=== PATIENT | male | born 1955 | race African-American/Black ===

== ENCOUNTER 2020-06-01 12:43 | Emergency (ER) | payer MEDICARE, SELFPAY ==
[2020-06-01] VITALS (29 sets, daily range): BP systolic 117–172; BP diastolic 76–117; PULSE 85–110; RESP 13–27; TEMP 36.4; O2SAT 89–100
--- NOTE | ~2020-06-01 | CT_ITS ---
EXAMINATION: CTA abd aorta runoff DATE: 06/01/2020 14:42 INDICATION: Peripheral arterial disease. TECHNIQUE: Computed tomographic angiography (CTA) of the abdominal, pelvis, and both lower extremitie s was performed with 150 mL Omnipaque-350 intravenous contrast. Automated exposure control and iterat yesenia reconstruction technique were employed. The dose-length product was 1695.35 mGy-cm. Maximum inten sity projection 3D-reconstructions of the arteries were created by the technologist on a separate wor kstation. COMPARISON: CT abdomen and pelvis 09/06/14 FINDINGS: ABDOMINAL AORTA AND ITS BRANCHES: There is atherosclerosis of abdominal aorta without aneurysm or significant stenosis. There is no sig nificant stenosis of celiac axis, superior mesenteric artery, the renal arteries, or inferior mesente dino artery. PELVIC VASCULATURE: There is mild stenosis of the common iliac arteries. There is total occlusion of a branch of right in ternal iliac artery. There is total occlusion of left internal iliac artery. There is moderate stenos is of right external iliac artery and left external iliac artery. RIGHT LOWER EXTREMITY VASCULATURE: There is no significant stenosis of right common femoral artery or profunda femoris. There is a throm bosed stent in right superficial femoral artery and above-knee popliteal artery. There is reconstitut ion of flow in above-knee popliteal artery distal to the stent. There is severe stenosis of proximal right anterior tibial artery. There is moderate stenosis of the tibioperoneal trunk and proximal farshad elena artery. There is mild stenosis of proximal right posterior tibial artery. LEFT LOWER EXTREMITY VASCULATURE: There is no significant stenosis of left common femoral artery or profunda femoris. There is mild prachi nosis of superficial left superficial femoral artery. There is focal moderate stenosis of proximal le ft superficial femoral artery. There is moderate stenosis of the junction of superficial femoral yandy ry and popliteal artery. There is total occlusion of mid anterior tibial artery with distal reconstit ution. There is severe stenosis of tibioperoneal trunk. There is total occlusion of proximal posterio r tibial artery with reconstitution. There is total occlusion of distal posterior tibial artery. Ther e is moderate stenosis of proximal peroneal artery. ADDITIONAL FINDINGS: The visualized portions of the lung bases demonstrate mild atelectasis. No pleural effusion. The live r is normal. There are changes of cholecystectomy. The spleen, pancreas, and adrenal glands are roge l. There is cortical thinning of the kidneys. There are cysts in the kidneys measuring up to 1.6 cm o n the right. The prostate is mildly enlarged. There are no dilated loops of bowel. The appendix is no rmal. There are no pathologically enlarged lymph nodes. There is no free intraperitoneal fluid. There are chronic compression fractures of L2 on L3. IMPRESSION: 1. Moderate stenosis of the bilateral external iliac arteries. 2. Thrombosed stent in right superficial femoral artery and above-knee popliteal artery with reconsti tution of flow distal to the stent. 3. Severe stenosis of proximal right anterior tibial artery and moderate stenosis of right tibioperon eal trunk and proximal peroneal artery. Three-vessel runoff on the right. 4. Focal moderate stenosis of proximal left superficial femoral artery. 5. Moderate stenosis of the junction of left superficial femoral artery and popliteal artery. 6. Total occlusion of mid left anterior tibial artery with distal reconstitution. Total occlusion of proximal left posterior tibial artery with reconstitution and then distal re-occlusion. Moderate sten osis of left proximal peroneal artery. Reviewed, dictated and finalized at location A. Electronically signed by Tyrese Paris M.D.
[2020-06-01 13:56] LABS: Basophils Absolute Auto 0.1 K/mm3 (0.0-0.1); Eosinophils Absolute Auto 0.2 K/mm3 (0-0.3); Eosinophils Percent Auto 2.8 % (0-4.4); Hematocrit 50.8 % (42.0-52.0); Immature Granulocyte Absolute 0.04 K/mm3 (0.00-0.031); Immature Granulocyte Percent A 0.6 % (0-0.5); Lymphocytes Absolute Auto 1.67 K/mm3 (0.9-3.2); Mean Corpuscular HGB Conc 33.5 g/dl (32-36); Mean Corpuscular Hemoglobin 29.3 pg (26-34); Mean Corpuscular Volume 87.4 fl (80-100); Mean Platelet Volume 9.5 fl (7.4-10.4); Monocytes Absolute Auto 0.7 K/mm3 (0.1-0.6); Monocytes Percent Auto 9.5 % (2.6-8.5); Neutrophils Absolute Auto 4.6 K/mm3 (1.3-6.7); Neutrophils Percent Auto 63.1 % (45.5-73.1); Platelet Count Result 222 k/mm3 (150-375); Red Blood Count 5.81 M/mm3 (4.6-6.20); Red Cell Distribution Width 14.7 % (11.5-14.5); White Blood Count 7.3 K/mm3 (4.5-10.0)
[2020-06-01 14:05] LABS: Prothrombin Time 13.7 Seconds (11.1-14.7)
[2020-06-01 14:06] LABS: Partial Thromboplastin Time 28.7 SECONDS (22.3-36.8)
--- NOTE | 2020-06-01 14:06 | ED.GENADULT ---
HPI - General Adult General Chief complaint: Extremity Injury, Lower Stated complaint: left foot pain Time Seen by Provider: 06/01/20 12:49 Source: patient Mode of arrival: ambulatory Limitations: no limitations History of Present Illness HPI narrative: Patient is a 64-year-old male who presents to emergency department for evaluation of left leg pain that began of the dorsal surface of the left midfoot spread to the calf and now the posterior left thigh patient notes aching pain worse with weightbearing and activity pain began while walking. Patient notes history of stents in the right leg but has no complaints in this extremity. Patient presents per private vehicle in no distress has not taken anything for his symptoms. Patient has history of tobacco abuse and arthritis. 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 HEAD: Normocephalic, atraumatic. EYES: PERRLA and EOMI. ENT: Nares clear, no rhinorrhea or epistaxis. Mucous membranes moist. CHEST: Clear to auscultation. No respiratory distress. No wheezes rales or rhonchi HEART: Regular rate and rhythm. No murmur heard. Patient with weak pulses bilaterally in the lower extremities able to Doppler the pulses bilaterally dorsalis pedis and posterior tibialis ABDOMEN: Soft, nontender, nondistended, normal active bowel sounds. EXTREMITIES: Normal range of motion. No edema. No deformities of the left lower extremity with tenderness of the midfoot calf and posterior thigh with no obvious deformities SKIN: Warm, dry, no rash. NEURO: No focal deficits. Alert and oriented x3. Neurovascularly intact. Normal speech and gait PSYCH: Normal mood and affect. Course Course Emergency Course: Patient with arterial occlusions with heparin being administered at this time patient hemodynamically stable agreeing with the plan ABCs and vital signs intact and stable Reevaluation(s) Reevaluation #1: Patient in the room at this time aware of case findings treatment plan and diagnosis will be given at this time given the arterial occlusions with consultation with his manager country Date: 06/01/20 Time: 15:19 Reevaluation #2: Patient in the room at this time with transport team present patient being loaded for transportation hemodynamically stable no distress pain well tolerated Date: 06/01/20 Time: 20:12 Consultations Consultation #1: Patient case discussed with [place] nurse for [facility] who is returning call for Dr. Ahmet Mooney. She would like the patient to be sent to [facility] for Emelyn Mooney MD to manage the patient. She agrees with starting heparin Consultation #2: Discussed case with hospitalist at [facility] who is accepted the patient Date: 06/01/20 Time: 17:39 Vital Signs Vital signs: Vital Signs Temperature 97.5 F L 06/01/20 12:47 Pulse Rate 110 H 06/01/20 12:47 Respiratory Rate 18 06/01/20 12:47 Blood Pressure 137/85 06/01/20 12:47 Pulse Oximetry 98 06/01/20 12:47 Temperature 97.5 F L 06/01/20 12:47 Pulse Rate 109 H 06/01/20 19:45 Respiratory Rate 22 H 06/01/20 19:45 Blood Pressure 144/98 H 06/01
[2020-06-01 14:08] LABS: Potassium 3.9 mmol/L (3.4-5.0)
[2020-06-01 14:10] LABS: Anion Gap 10 mmol/L (8-16); Blood Urea Nitrogen 22 mg/dL (9-20); Calcium 9.5 mg/dL (8.4-10.2); Carbon Dioxide 24 mmol/L (22-30); Chloride 104 mmol/L (98-107); Estimated CRCL calculation 54 ml/min; Estimated Glomerular Filt Rate > 60; Glucose 224 mg/dL (75-110); Sodium 138 mmol/L (137-145)
[2020-06-01] MEDS: SODIUM CHLORIDE 0.9% IV 1,000 ML 999 ML IV CONT (15:10)
--- NOTE | 2020-06-01 15:19 | ECG_ITS ---
Measurements Intervals [place] Rate: 84 P: 62 TN: 185 QRS: -14 QRSD: 98 T: 32 QT: 370 QTc: 438 Interpretive Statements SINUS RHYTHM EARLY PRECORDIAL R/S TRANSITION BORDERLINE ST ABNORMALITY- DIFFUSE LEADS BORDERLINE ECG Electronically Signed On 06-01-2020 15:54:07 MUSHROOM PRESS OPERATOR by Jhonny Akins D.O.
[2020-06-01] MEDS: HEPARIN SODIUM 5,000 UNITS/ML VIAL 7500 UNITS IV PUSH (15:25)
[2020-06-01 15:32] LABS: Estimated CRCL calculation 54 ml/min; Estimated Glomerular Filt Rate > 60
[2020-06-01] MEDS: HEPARIN SOD/D5W 100 UNITS/ML 25,000 UNITS/250 ML BAG 15 UNITS IV CONT (15:50)
--- NOTE | 2020-06-01 18:03 | PC.NURSE ---
accepted to [facility] rm [phone]#b [phone]
--- NOTE | 2020-06-01 18:18 | PC.NURSE ---
Rosalind Ems accepted transfer to [facility] ETA 1999 Trip #[id number]
== END 2020-06-01 20:19 | disposition short-term general hospital (02) ==
PROVIDERS: Emergency Medicine Emergency Medical Services; Emergency Provider Emergency Medicine; PCP Family Medicine
DX: I70.203 Unspecified atherosclerosis of native arteries of extremities, bilateral legs (principal); T82.868A Thrombosis due to vascular prosthetic devices, implants and grafts, initial encounter; R94.31 Abnormal electrocardiogram [ECG] [EKG]; F17.200 Nicotine dependence, unspecified, uncomplicated
CPT/HCPCS: 36415; 75635; 80048; 85025; 85610; 85730; 93005; 96361; 96365; 96366; 99285; J1644; J7030; Q9967

== ENCOUNTER 2021-06-03 01:06 | Day surgery (SDC) | payer MEDICARE, SELFPAY ==
[2021-04-28 16:11] VITALS: BMI 28.6
[2021-05-27 12:27] VITALS: BMI 28.6
--- NOTE | 2021-06-02 11:24 | PC.NURSE ---
LATE ENTRY, REVIEWED HISTORY AND MEDICATIONS WITH PATIENT, REVIEWED INSTRUCTIONS AND TO HOLD PLAVIX START AFTER DOSE ON 05/29/2021, PT VERBALIZED UNDERSTANDING.
[2021-06-03 11:23] VITALS: BP 134/96; PULSE 102; RESP 20; TEMP 36.4; O2SAT 97; BMI 28.5
[2021-06-03] MEDS: LACTATED RINGERS 1,000 ML 150 ML IV CONT (11:33)
[2021-06-03 11:35] LABS: Glucose Point of Care 173 mg/dl (65-105)
--- NOTE | 2021-06-03 11:44 | WPDGICN ---
Assessment and Plan Assessment and plan (1) Encounter for screening colonoscopy: Code(s): Z12.11 - Encounter for screening for malignant neoplasm of colon Status: Acute Assessment and Plan: Patient presents for screening colonoscopy on referral from primary care service. Further recommendations will be given after endoscopy. (2) History of colon polyps: Code(s): Z86.010 - Personal history of colonic polyps Status: Acute Assessment and Plan: Patient gives a history of colon polyps on previous colonoscopies. Plan for colonoscopy now consider follow-up colonoscopy at 5 year intervals in the future. (3) Heartburn: Code(s): R12 - Heartburn Status: Acute Assessment and Plan: Patient complains of heartburn that has worsened over last couple months. He does not take medications for this. Plan for a trial of Prilosec 20mg p.o. daily. Gregg diet and anti-reflux measures are encouraged. If this fails to alleviate symptoms patient is instructed to contact the office and elective EGD will be arranged. Patient denies any dysphagia or weight loss or bleeding at present. GI Consult Note Consult date/time: 06/03/21 11:44 HPI: Casey Jaimes is a 65 year old male Presents for screening colonoscopy. Patient states he has a prior history of colon polyps. He has had 2 previous colonoscopies most recently 4 5 years ago. Patient also complains of heartburn although he does not take any specific medications at 1 time he did try Prevacid which helped but no longer takes this. He does have a past history of diabetes. His family history is noncontributory. 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 Social History Social History (Updated 06/01/20 @ 14:08 by Al Mckay PA-C) Smoking packs per day: 1 Smoking cigarettes per day: 20.0 Years smoked: 20 Smoking pack-years: 20.00 Smoking status: Current every day smoker Tobacco type: cigarettes Alcohol intake: never Substance use: never Substance use type: does not use Living arrangements: alone Spiritual care concerns: No Meds Home Medications and Allergies Home Medications Medication Instructions Recorded Confirmed Type glipizide 10 mg PO BID 06/01/20 05/27/21 History pravastatin 20 mg PO DAILY 06/01/20 05/27/21 History triamterene-hydrochlorothiazid 1 cap PO DAILY 06/01/20 05/27/21 History clopidogrel [Plavix] 75 mg PO DAILY 04/28/21 05/27/21 History ergocalciferol (vitamin D2) 1,250 mcg PO WEEKLY 04/28/21 05/27/21 History [Vitamin D2] lisinopril 5 mg PO DAILY 04/28/21 05/27/21 History Allergies Allergy/AdvReac Type Severity Reaction Status Date / Time No Known Allergies Allergy Mild Verified 06/03/21 11:22 Vital Signs Vital Signs - 24 hr 06/03/21 11:23 Temperature 97.5 F L Pulse Rate 102 H Respiratory Rate 20 Blood Pressure 134/96 H Pulse Oximetry 97 Exam Narrative: Physical exam reveals patient be alert. Vital signs stable. HEENT exam is unremarkable. Patient is anicteric. Lungs are clear to auscultation and percussion. Heart is without murmur or extra sounds. Abdomen bowel sounds present soft nontender with no organomegaly. Digital external rectal exam normal.
--- NOTE | 2021-06-03 12:11 | P.PNAN_ITS ---
Anes - Initial Pre Proc Eval Procedure: Operation Date: 06/03/21 12:30 Proposed Procedures p Screening Colonoscopy - Zach Reyna MD Date/Time: 06/03/21 12:11 Surgeon: Zach Reyna MD Pre Op Diagnosis: neoplasm screening Patient Data Age: 65 Gender: M Height: 1.8 m Weight: 92.9 kg Last Vital Signs Temp 97.5 F L 06/03/21 11:23 Pulse 102 H 06/03/21 11:23 Resp 20 06/03/21 11:23 BP 134/96 H 06/03/21 11:23 Pulse Ox 97 06/03/21 11:23 Allergies Allergy/AdvReac Type Severity Reaction Status Date / Time No Known Allergies Allergy Mild Verified 06/03/21 11:22 Home Medications Medication Instructions Recorded Confirmed Type glipizide 10 mg PO BID 06/01/20 05/27/21 History pravastatin 20 mg PO DAILY 06/01/20 05/27/21 History triamterene-hydrochlorothiazid 1 cap PO DAILY 06/01/20 05/27/21 History clopidogrel [Plavix] 75 mg PO DAILY 04/28/21 05/27/21 History ergocalciferol (vitamin D2) 1,250 mcg PO WEEKLY 04/28/21 05/27/21 History [Vitamin D2] lisinopril 5 mg PO DAILY 04/28/21 05/27/21 History Laboratory Tests 06/03/21 11:32 POC Capillary Glucose 173 mg/dl H mg/dl (65-105) Patient hx anesthesia problems: none Family hx anesthesia problems: none Results Review: All pre-operative results and documents have been reviewed as part of the pre-operative evaluation. 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 Social History Social History (Updated 06/01/20 @ 14:08 by Al Mckay PA-C) Smoking packs per day: 1 Smoking cigarettes per day: 20.0 Years smoked: 20 Smoking pack-years: 20.00 Smoking status: Current every day smoker Tobacco type: cigarettes Alcohol intake: never Substance use: never Substance use type: does not use Living arrangements: alone Spiritual care concerns: No Anes - Eval Final PreProcedure Day of Procedure 06/03/21 12:11 Patient weight: overweight Heart: regular rate and rhythm Lungs: clear to auscultation Airway: Mallampati scale class II Neurological: alert and oriented Last oral intake: >/= 8 hours ASA classification: III Emergent: no Anesthetic plan: proceed Anesthesia type and monitoring: general GIVS and standard monitoring Results Review: All pre-operative results and documents have been reviewed as part of the pre-operative evaluation. Informed Consent: The patient's anesthetic plan and its attendant risks and benefits were discussed with the patient/family/POA. Questions were solicited and answers provided to the satisfaction of the patient/family/POA.
[2021-06-03 12:34] VITALS: BP 88/63; PULSE 99; RESP 30; O2SAT 92
[2021-06-03 12:44] VITALS: BP 111/81; PULSE 103; RESP 26; O2SAT 98
[2021-06-03 12:54] VITALS: BP 154/98; PULSE 96; RESP 21; O2SAT 100
[2021-06-03 13:04] VITALS: BP 156/100; PULSE 96; RESP 20; O2SAT 100
== END 2021-06-03 13:12 | disposition home health service (06) ==
PROVIDERS: PCP Family Medicine; Visit Provider Internal Medicine Gastroenterology
PROC: 0DJD8ZZ Inspection of Lower Intestinal Tract, Via Natural or Artificial Opening Endoscopic (ICD-10-PCS; CPT 45378; principal; 2021-06-03 12:30)
DX: Z12.11 Encounter for screening for malignant neoplasm of colon (principal); Z86.010 Personal history of colon polyps; R12 Heartburn; K64.8 Other hemorrhoids; E78.5 Hyperlipidemia, unspecified; I10 Essential (primary) hypertension; I70.201 Unspecified atherosclerosis of native arteries of extremities, right leg; F17.210 Nicotine dependence, cigarettes, uncomplicated
CPT/HCPCS: G0105; 82948; J2370; J2704; J7120

== ENCOUNTER 2021-12-31 09:46 | Outpatient (CLI) | payer MEDICARE, SELFPAY ==
--- NOTE | ~2021-12-31 | US_ITS ---
EXAMINATION: US aorta [facility] DATE: 12/31/2021 11:52 CDT INDICATION: Abdominal aortic aneurysm screening TECHNIQUE: Grayscale, color Doppler, and pulsed Doppler images of the aorta and common iliac arteries were obtained. COMPARISON: CT dated 06/01/2020 FINDINGS: The proximal aorta measures 2.9 cm greatest sagittal dimension. The mid aorta measures 2.7 cm greates t sagittal dimension. The distal aorta measures 2.1 cm greatest sagittal dimension. The right common internal iliac artery measures 1.1 cm. The left common iliac artery measures 1.2 cm. IMPRESSION: 1. Normal caliber aorta without aneurysm. Reviewed, dictated and finalized at location B.
== END 2021-12-31 09:47 | disposition home or self-care (01) ==
PROVIDERS: PCP Family Medicine; Visit Provider Family Medicine
DX: Z13.6 Encounter for screening for cardiovascular disorders (principal)
CPT/HCPCS: 76706

== ENCOUNTER 2022-01-26 09:42 | Outpatient (CLI) | payer MEDICARE, SELFPAY ==
[2022-01-26 10:41] LABS: Alanine Aminotransferase 29 U/L (6-50); Albumin Level 4.5 g/dL (3.5-5.1); Alkaline Phosphatase 124 U/L (38-126); Anion Gap 16 mmol/L (8-16); Aspartate Amino Transferase 30 U/L (17-59); Bilirubin,Total 0.9 mg/dL (0.2-1.3); Blood Urea Nitrogen 32 mg/dL (9-20); Calcium 9.4 mg/dL (8.4-10.2); Carbon Dioxide 17 mmol/L (22-30); Chloride 104 mmol/L (98-107); Cholesterol 216 mg/dL (0-200); Estimated Glomerular Filt Rate 36; Glucose 202 mg/dL (65-110); HDL Direct 43 mg/dL; Potassium 4.4 mmol/L (3.4-5.0); Sodium 137 mmol/L (137-145); Triglycerides 224 mg/dL (<150)
[2022-01-26 10:48] LABS: NT Pro B Type Natriuretic Pept 319 pg/mL (5-100)
[2022-01-26 10:52] LABS: LDL Cholesterol Direct 110 mg/dL
[2022-01-26 11:16] LABS: Hemoglobin A1C 9.2 % (<5.7)
== END 2022-01-26 09:43 | disposition home or self-care (01) ==
PROVIDERS: PCP Family Medicine; Visit Provider Internal Medicine Cardiovascular Disease
DX: M79.675 Pain in left toe(s) (principal); K30 Functional dyspepsia; E11.9 Type 2 diabetes mellitus without complications; I10 Essential (primary) hypertension; E78.5 Hyperlipidemia, unspecified; I73.9 Peripheral vascular disease, unspecified; Z82.49 Family history of ischemic heart disease and other diseases of the circulatory system; Z82.3 Family history of stroke; Z13.6 Encounter for screening for cardiovascular disorders
CPT/HCPCS: 36415; 80053; 80061; 83036; 83880

== ENCOUNTER 2022-04-01 17:46 | Emergency (ER) | payer MEDICARE, SELFPAY ==
--- NOTE | ~2022-04-01 | XR_ITS ---
EXAM: XR toe 1st LT min 2V DATE: 04/01/2022 20:19 HISTORY: L.BIG TOE PAIN FOR A FEW DAYS, DOESNT REMEMBER HURTING IT. . COMPARISON: None available. FINDINGS: Normal mineralization. No fracture or dislocation. No lytic or blastic lesion. Joint space s and physes are maintained. No erosion or periosteal change. Soft tissues within normal limits. IMPRESSION: No acute osseous finding in the left first toe. Reviewed, dictated and finalized at location K. [employer]
[2022-04-01 18:47] VITALS: BP 148/89; PULSE 97; RESP 14; TEMP 36.7; O2SAT 100
--- NOTE | 2022-04-01 20:59 | ED.GENADULT ---
HPI - General Adult General Chief complaint: Extremity Injury, Lower Stated complaint: TOE INJURY Time Seen by Provider: 04/01/22 20:13 History of Present Illness HPI narrative: 66-year-old male history of hypertension, hyperlipidemia, CKD, and PAD presents to the emergency room for evaluation of pain to his left great toe. States he has been having pain at the base of the toe for several days. Reports pain is worse with ambulation and when not touching it. Denies any redness or swelling. No history of gout. No known injury or trauma. States he is try Tylenol with no relief of symptoms. Related Data Home Medications Medication Instructions Recorded Confirmed glipizide 10 mg tablet 10 mg PO BID 06/01/20 05/27/21 pravastatin 20 mg tablet 20 mg PO DAILY 06/01/20 05/27/21 triamterene 37.5 1 cap PO DAILY 06/01/20 05/27/21 mg-hydrochlorothiazide 25 mg capsule clopidogrel 75 mg tablet (Plavix) 75 mg PO DAILY 04/28/21 05/27/21 ergocalciferol (vitamin D2) 1,000 1,250 mcg PO WEEKLY 04/28/21 05/27/21 unit capsule lisinopril 5 mg tablet 5 mg PO DAILY 04/28/21 05/27/21 Allergies Allergy/AdvReac Type Severity Reaction Status Date / Time No Known Allergies Allergy Mild Verified 06/03/21 11:22 Review of Systems Review of Systems: CONSTITUTIONAL: Denies fever, chills, or sweats. EYES: Denies visual changes, redness, or discharge. ENT: Denies rhinorrhea, congestion, sore throat, or otalgia. CARDIOVASCULAR: Denies chest pain, palpitations, or edema. RESPIRATORY: Denies cough or dyspnea. GASTROINTESTINAL: Denies abdominal pain, nausea, vomiting, or diarrhea. GENITOURINARY: Denies dysuria or hematuria. SKIN: Denies rash or itching. MUSCULOSKELETAL: Reports left great toe pain NEUROLOGIC: Denies headache, numbness, dizziness, or weakness. PSYCHIATRIC: Denies anxiety or depression. 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 HEAD: Normocephalic, atraumatic. EYES: Conjunctivae normal, PERRLA and EOMI. CHEST: Clear to auscultation. No respiratory distress. No wheezes rales or rhonchi. HEART: Regular rate and rhythm. No murmur heard. Normal peripheral pulses. EXTREMITIES: left great toe: +TTP to MTP joint, no erythema, no swelling, no obvious bony abnormality. Limited range of motion due to pain. Neurovascular is intact distally SKIN: Warm, dry, no rash. No noted wounds NEURO: No focal deficits. Alert and oriented x3. MAEW. CN's II-XI intact bilaterally, normal gait PSYCH: Cooperative. Normal mood and affect. Course Vital Signs Vital signs: Vital Signs Temperature 36.7 C 04/01/22 18:47 Pulse Rate 97 04/01/22 18:47 Respiratory Rate 14 04/01/22 18:47 Blood Pressure 148/89 H 04/01/22 18:47 Pulse Oximetry 100 04/01/22 18:47 Oxygen Delivery Room Air 04/01/22 18:47 Temperature 36.7 C 04/01/22 18:47 Pulse Rate 97 04/01/22 18:47 Respiratory Rate 14 04/01/22 18:47 Blood Pressure 148/89 H 04/01/22 18:47 Pulse Oximetry 100 04/01/22 18:47 Oxygen Delivery Room Air 04/01/22 18:47 Medical Decision Making Vital Signs Vital Signs: Vital Signs Temperature 36.7 C 04/01/22 18:47 Pulse Rate 97 04/01/22 18:47 Respiratory Rate 14 04/01/22 18:47 Blood Pressure 148/89 H 04/01/22 18:47 Pulse Oximetry 100 04/01/22 18:47 Oxygen Delivery
== END 2022-04-01 21:16 | disposition home or self-care (01) ==
LOC: ANHED 21:15
PROVIDERS: Emergency Provider Nurse Practitioner Family; PCP Family Medicine
DX: M10.9 Gout, unspecified (principal); E78.5 Hyperlipidemia, unspecified; I12.9 Hypertensive chronic kidney disease with stage 1 through stage 4 chronic kidney disease, or unspecified chronic kidney disease; E11.22 Type 2 diabetes mellitus with diabetic chronic kidney disease; N18.9 Chronic kidney disease, unspecified; E11.51 Type 2 diabetes mellitus with diabetic peripheral angiopathy without gangrene; I70.201 Unspecified atherosclerosis of native arteries of extremities, right leg; F17.210 Nicotine dependence, cigarettes, uncomplicated; Z79.84 Long term (current) use of oral hypoglycemic drugs
CPT/HCPCS: 73660; 96372; 99283; J1100

== ENCOUNTER 2022-07-30 12:42 | Outpatient (CLI) | payer MEDICARE, SELFPAY ==
[2022-07-30 13:41] LABS: Appearance Urine Clear (Clear); Bilirubin Urine Negative (Negative); Blood Urine Negative (Negative); Color Urine Yellow (Yellow); Glucose Urine UA 3+ mg/dL (Negative); Ketones Urine Negative (Negative); Leukocyte Esterase Ur Negative LEU/UL (Negative); Nitrate Urine Negative (Negative); Protein Urine Negative (Negative); Specific Grav Ur 1.026 (1.001-1.035); pH Urine 5.5 (5.0-9.0)
[2022-07-30 13:46] LABS: Basophils Absolute Auto 0.1 K/mm3 (0.0-0.1); Basophils Percent Auto 1.2 % (0.2-1.2); Creatinine Urine 76.6 mg/dL; Eosinophils Absolute Auto 0.2 K/mm3 (0-0.3); Hematocrit 57.9 % (42.0-52.0); Hemoglobin 19.1 g/dL (14.0-18.0); Immature Granulocyte Absolute 0.02 K/mm3 (0.00-0.031); Immature Granulocyte Percent A 0.4 % (0-0.5); Lymphocytes Absolute Auto 1.69 K/mm3 (0.9-3.2); Lymphocytes Percent Auto 29.6 % (18.3-44.2); Mean Corpuscular Hemoglobin 29.3 pg (26-34); Mean Corpuscular Volume 88.8 fl (80-100); Mean Platelet Volume 9.5 fl (7.4-10.4); Monocytes Absolute Auto 0.6 K/mm3 (0.1-0.6); Neutrophils Absolute Auto 3.1 K/mm3 (1.3-6.7); Neutrophils Percent Auto 54.8 % (45.5-73.1); Platelet Count Result 238 k/mm3 (150-375); Red Blood Count 6.52 M/mm3 (4.6-6.20); Total Protein Urine Random 11 mg/dL; Ur Ttl Prot Creatinine Ratio 0.14 mg/mg (0-0.20); White Blood Count 5.7 K/mm3 (4.5-10.0)
[2022-07-30 13:51] LABS: Add Urine Microscopic? NO
[2022-07-30 13:54] LABS: Alanine Aminotransferase 30 U/L (6-50); Alkaline Phosphatase 127 U/L (38-126); Anion Gap 12 mmol/L (8-16); Aspartate Amino Transferase 28 U/L (17-59); Blood Urea Nitrogen 28 mg/dL (9-20); Calcium 9.2 mg/dL (8.4-10.2); Carbon Dioxide 23 mmol/L (22-30); Chloride 103 mmol/L (98-107); Cholesterol 199 mg/dL (0-200); Estimated Glomerular Filt Rate 36; Glucose 252 mg/dL (65-110); HDL Direct 47 mg/dL; Phosphorus 3.2 mg/dL (2.5-4.5); Potassium 4.3 mmol/L (3.4-5.0); Sodium 138 mmol/L (137-145); Triglycerides 190 mg/dL (<150)
[2022-07-30 14:04] LABS: LDL Cholesterol Direct 101 mg/dL
[2022-07-30 14:06] LABS: Parathyroid Intact 144.5 pg/mL (7.5-53.5)
[2022-07-30 14:26] LABS: Vitamin D 25 Hydroxy 51.9 ng/mL
== END 2022-07-30 12:43 | disposition home or self-care (01) ==
PROVIDERS: PCP Family Medicine; Visit Provider Internal Medicine Nephrology
DX: I12.9 Hypertensive chronic kidney disease with stage 1 through stage 4 chronic kidney disease, or unspecified chronic kidney disease (principal); N18.31 Chronic kidney disease, stage 3a; K21.9 Gastro-esophageal reflux disease without esophagitis; E78.5 Hyperlipidemia, unspecified; G47.33 Obstructive sleep apnea (adult) (pediatric); I73.9 Peripheral vascular disease, unspecified; E55.9 Vitamin D deficiency, unspecified
CPT/HCPCS: 36415; 80053; 80061; 81003; 82306; 82570; 83970; 84100; 84156; 85025

== ENCOUNTER 2022-08-11 09:58 | Outpatient (CLI) | payer MEDICARE, SELFPAY ==
--- NOTE | ~2022-08-11 | CT_ITS ---
EXAMINATION: CT lung screening DATE: 08/11/2022 10:19 INDICATION: Screening for malignant neoplasm TECHNIQUE: Computed tomography (CT) of the chest was performed without intravenous contrast. The dose -length product was 230.35 mGy-cm. Automated exposure control and iterative reconstruction technique were employed. COMPARISON: CT dated 09/03/2014 FINDINGS: No thoracic lymphadenopathy. Heart size is normal. There is atherosclerosis of the aorta an d coronary arteries. No significant pleural or pericardial effusion. There is emphysema. No endobronc hial lesions. There is dependent atelectasis. No pneumothorax. No suspicious pulmonary nodules or mas ses. No focal lytic or blastic lesions. Mild thoracic spondylosis. IMPRESSION: 1. Lung-RADS category 1: Negative. Continue annual screening with noncontrast low-dose chest CT in 12 months. Reviewed, dictated and finalized at location L. IMPRESSION: 1. Lung-RADS category 1: Negative. Continue annual screening with noncontrast l ow-dose chest CT in 12 months.
== END 2022-08-11 09:59 | disposition home or self-care (01) ==
PROVIDERS: PCP Family Medicine; Visit Provider Family Medicine
DX: Z12.2 Encounter for screening for malignant neoplasm of respiratory organs (principal); J43.9 Emphysema, unspecified; J98.11 Atelectasis; M47.894 Other spondylosis, thoracic region
CPT/HCPCS: 71271

== ENCOUNTER 2024-01-17 11:48 | Emergency (ER) | payer MEDICARE, SELFPAY ==
[2024-01-17 11:57] VITALS: BP 155/81; PULSE 102; RESP 18; TEMP 36.8; O2SAT 96
--- NOTE | 2024-01-17 12:31 | ED.URI ---
HPI - URI/Sore Throat General Chief Complaint: Upper Respiratory Infection Stated Complaint: Cough/Diarrhea Time Seen by Provider: 01/17/24 12:13 Source: patient and RN notes reviewed Mode of arrival: ambulatory Limitations: no limitations History of Present Illness HPI Narrative: Patient presents today complaining of a 10 day history of nasal congestion, cough, and sore throat. Denies fever, rhinorrhea. No history of asthma or COPD, but states he is going to be taking some pulmonary function testing shortly. He has been taking Delsym and Mucinex without much relief. Denies any known sick contacts. Three home COVID tests that were all negative. Former smoker that quit 4 years ago. Related Data Home Medications Medication Instructions Recorded Confirmed glipizide 10 mg tablet 10 mg PO BID 06/01/20 01/17/24 pravastatin 20 mg tablet 20 mg PO DAILY 06/01/20 01/17/24 triamterene 37.5 1 cap PO DAILY 06/01/20 01/17/24 mg-hydrochlorothiazide 25 mg capsule clopidogrel 75 mg tablet (Plavix) 75 mg PO DAILY 04/28/21 01/17/24 ergocalciferol (vitamin D2) 1,000 1,250 mcg PO WEEKLY 04/28/21 01/17/24 unit capsule lisinopril 5 mg tablet 5 mg PO DAILY 04/28/21 01/17/24 famotidine 40 mg tablet 40 mg PO DAILY 01/17/24 01/17/24 insulin detemir U-100 100 unit/mL 18 unit subcut DAILY 01/17/24 01/17/24 (3 mL) subcutaneous pen (Levemir FlexPen) nifedipine 30 mg tablet,extended 30 mg PO DAILY 01/17/24 01/17/24 release 24 hr pioglitazone 15 mg tablet 15 mg PO DAILY 01/17/24 01/17/24 tamsulosin 0.4 mg capsule 0.4 mg PO DAILY 01/17/24 01/17/24 Allergies Allergy/AdvReac Type Severity Reaction Status Date / Time No Known Allergies Allergy Mild Verified 01/17/24 12:06 Review of Systems Review of Systems: CONSTITUTIONAL: Denies body aches, fever, chills, or sweats. EYES: Denies visual changes, redness, or discharge. ENT: Denies rhinorrhea, or otalgia.+ congestion, sore throat CARDIOVASCULAR: Denies chest pain, palpitations, or edema. RESPIRATORY: Denies dyspnea.+ cough GASTROINTESTINAL: Denies abdominal pain, nausea, vomiting, or diarrhea. GENITOURINARY: Denies dysuria or hematuria. SKIN: Denies rash, itching, or wounds. MUSCULOSKELETAL: Denies back pain, joint pain, or myalgia. NEUROLOGIC: Denies headache, numbness, tingling, or weakness. PSYCH: Denies depression or anxiety. 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 Please see nursing chart for further information. There is no relevant family history pertinent to the presenting complaint Exam Narrative: GENERAL: Well-appearing, well-nourished, and in no acute distress. HEAD: Normocephalic, atraumatic. EYES: EOMI. No redness or drainage. Conjunctivae normal. ENT: Mucous membranes pink and moist. Nares mildly congested. No rhinorrhea. TMs normal bilaterally. Throat normal. Uvula midline. NECK: Normal AROM. Supple. No lymphadenopathy. CHEST: No respiratory distress. Clear to auscultation. HEART: Regular rate and rhythm. No murmur appreciated. EXTREMITIES: Normal range of motion. No edema. SKIN: Warm, dry, no rash. Capillary refill normal. Normal skin turgor. NEURO: No focal deficits. Alert and oriented x3. Gait steady. PSYCH: Normal af
== END 2024-01-17 12:37 | disposition home or self-care (01) ==
PROVIDERS: Emergency Provider Nurse Practitioner; PCP Family Medicine
DX: J40 Bronchitis, not specified as acute or chronic (principal); J01.90 Acute sinusitis, unspecified; F17.210 Nicotine dependence, cigarettes, uncomplicated; E11.9 Type 2 diabetes mellitus without complications; Z79.4 Long term (current) use of insulin; E78.5 Hyperlipidemia, unspecified; I10 Essential (primary) hypertension; I73.9 Peripheral vascular disease, unspecified; Z79.01 Long term (current) use of anticoagulants
CPT/HCPCS: 99213; G0463

== ENCOUNTER 2024-06-23 12:56 | Emergency (ER) | payer MEDICARE, SELFPAY ==
[2024-06-23 13:04] VITALS: BP 140/84; PULSE 86; RESP 16; TEMP 36.1; O2SAT 99
--- NOTE | 2024-06-23 13:14 | ED_ITS ---
HPI - Dizziness General Chief Complaint: Dizziness Stated Complaint: Dizzy Time Seen by Provider: 06/23/24 13:05 Source: patient and RN notes reviewed Mode of arrival: ambulatory Limitations: no limitations History of Present Illness HPI Narrative: Patient presents today complaining dizziness since 4:00 a.m. today. Describes the dizziness as room spinning. He has almost fallen several times due to the dizziness. He is also complaining of weakness. Denies any additional symptoms today to include headache, nausea vomiting, chest pain, shortness of breath, vision changes, heart racing or palpitations. He does report some numbness and tingling in his bilateral hands, but is being evaluated for carpal tunnel. He is diabetic on insulin, with a history of hypertension on several medications. States he has not eaten today but checked his blood sugar this morning was 103. Related Data Home Medications ?Medication ?Instructions ?Recorded ?Confirmed ?Last Taken ?Type glipizide 10 mg tablet 10 mg PO BID 06/01/20 06/23/24 06/02/21 History pravastatin 20 mg tablet 20 mg PO DAILY 06/01/20 06/23/24 06/02/21 History triamterene 37.5 1 cap PO DAILY 06/01/20 06/23/24 06/02/21 History mg-hydrochlorothiazide 25 mg capsule clopidogrel 75 mg tablet (Plavix) 75 mg PO DAILY 04/28/21 06/23/24 05/29/21 History ergocalciferol (vitamin D2) 1,000 1,250 mcg PO WEEKLY 04/28/21 06/23/24 06/02/21 History unit capsule lisinopril 5 mg tablet 5 mg PO DAILY 04/28/21 06/23/24 06/02/21 History famotidine 40 mg tablet 40 mg PO DAILY 01/17/24 06/23/24 Unknown History insulin detemir U-100 100 unit/mL 18 unit subcut DAILY 01/17/24 06/23/24 Unknown History (3 mL) subcutaneous pen (Levemir FlexPen) nifedipine 30 mg tablet,extended 30 mg PO DAILY 01/17/24 06/23/24 Unknown History release 24 hr tamsulosin 0.4 mg capsule 0.4 mg PO DAILY 01/17/24 06/23/24 Unknown History Allergies Allergy/AdvReac Type Severity Reaction Status Date / Time No Known Allergies Allergy Mild Verified 06/23/24 13:01 Review of Systems Review of Systems: CONSTITUTIONAL: Denies body aches, fever, chills, or sweats. EYES: Denies visual changes, redness, or discharge. ENT: Denies rhinorrhea, congestion, sore throat, or otalgia. CARDIOVASCULAR: Denies chest pain, palpitations, or edema. RESPIRATORY: Denies cough or dyspnea. GASTROINTESTINAL: Denies abdominal pain, nausea, vomiting, or diarrhea. GENITOURINARY: Denies dysuria or hematuria. SKIN: Denies rash, itching, or wounds. MUSCULOSKELETAL: Denies back pain, joint pain, or myalgia. NEUROLOGIC: Denies headache, numbness, tingling.+ dizziness, weakness PSYCH: Denies depression or anxiety. 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 Please see nursing chart for further information. There is no relevant family history pertinent to the presenting complaint Exam Narrative: GENERAL: Well-appearing, well-nourished, and in no acute distress. HEAD: Normocephalic, atraumatic. EYES: EOMI. PERRL. No nystagmus No redness or drainage. Conjunctivae normal. ENT: Mucous membranes pink and moist. NECK: Normal AROM. CHEST: No respiratory distress. Clear to auscultation. HEART: Regular rate and rhythm. No murmur appreciated. Normal peripheral pulses. EXTREMITIES: Normal range of motion. No edema. SKIN: Warm, dry, no rash. Capillary refill normal. Normal skin turgor. NEURO: No focal deficits. Alert and oriented x3. Gait steady. Hand health concierge equal and strong. 5/5 strength in BLE PSYCH: Normal affect. No signs of depression or anxiety. Course Course Level of Care: Express Care Visit Vital Signs Vital signs: Vital Signs Temperature 96.9 F L 06/23/24 13:04 Pulse Rate 86 06/23/24 13:04 Respiratory Rate 16 06/23/24 13:04 Blood Pressure 140/84 06/23/24 13:04 Pulse Oximetry 99 06/23/24 13:04 Temperature 96.9 F L 06/23/24 13:04 Pulse Rate 86 06/23/24 13:04 Respiratory Rate 16 06/23/24 13:04 Blood Pressure 140/84 06/23/24 13:04 Pulse Oximetry 99 06/23/24 13:04 Reviewed Transfer Transfered to: [place] Transportation: Other (private vehicle) Transfer rationale: Dizziness Accepting physician: Jonas MDM - Dizziness MDM Narrative Medical decision making narrative: Bedside glucose 103. Patient has no recent illness and affect history of diabetes, hypertension. He will be transferred to the ER for further evaluation of his symptoms. Differential Diagnosis Differential diagnosis: Likely benign paroxysmal positional vertigo, orthostatic hypotension, transient cerebral ischemia and other (CVA, vertigo, electrolyte imbalance) Lab Data Labs: Lab Results 06/23/24 Range/Units 13:14 POC Capillary Glucose 103 (65-105) mg/dl Critical Care Time Critical Care Time Critical Care Time: No Discharge Plan Discharge Clinical Impression: Dizziness, Weakness Patient Disposition: Acute Care Hospital Condition: Stable Patient Language: Stateless Prescriptions: No Action nifedipine 30 mg tablet extended release 24hr 30 mg PO DAILY famotidine 40 mg tablet 40 mg PO DAILY tamsulosin 0.4 mg capsule 0.4 mg PO DAILY Levemir FlexPen 100 unit/mL (3 mL) insulin pen 18 unit SUBCUT DAILY glipizide 10 mg tablet 10 mg PO BID triamterene-hydrochlorothiazid 37.5-25 mg capsule 1 cap PO DAILY pravastatin 20 mg tablet 20 mg PO DAILY clopidogrel [Plavix] 75 mg Tablet 75 mg PO DAILY lisinopril 5 mg Tablet 5 mg PO DAILY Vitamin D2 1,000 unit Capsule 1,250 mcg PO WEEKLY Rx Instructions: on Saturdays pantoprazole 40 mg tablet,delayed release (DR/EC) 40 mg PO QAM 28 Days Qty: 30 6RF Follow-up/Referrals: Edvin,Jerome Palacio MD [Primary Care Provider] - Time of Disposition: 13:24
[2024-06-23 13:19] LABS: Glucose Point of Care 103 mg/dl (65-105)
== END 2024-06-23 13:25 | disposition short-term general hospital (02) ==
PROVIDERS: Emergency Provider Nurse Practitioner; PCP Family Medicine
DX: R42 Dizziness and giddiness (principal); R53.1 Weakness; F17.210 Nicotine dependence, cigarettes, uncomplicated; E11.9 Type 2 diabetes mellitus without complications; Z79.4 Long term (current) use of insulin; Z79.84 Long term (current) use of oral hypoglycemic drugs; I10 Essential (primary) hypertension; E78.5 Hyperlipidemia, unspecified; I73.9 Peripheral vascular disease, unspecified
CPT/HCPCS: 82948; 99212; G0463

== ENCOUNTER 2024-06-23 13:39 | Emergency (ER) | payer MEDICARE, SELFPAY ==
[2024-06-23] VITALS (10 sets, daily range): BP systolic 129–189; BP diastolic 84–115; PULSE 80–92; RESP 11–19; TEMP 36.8; O2SAT 97–100
--- NOTE | ~2024-06-23 | XR_ITS ---
XR chest 2V Ordering provider: Cleopatra Mcdaniel MD History: 68 years Male with . weakness, dizziness . Comparison: August 17, 2018 FINDINGS: MEDIASTINUM: The cardiac silhouette is not enlarged. LUNGS: No infiltrates, effusions or pneumothorax. OTHER: No free air under the diaphragm. IMPRESSION: No acute cardiopulmonary pathology. Reviewed, dictated and finalized at location A.
--- NOTE | ~2024-06-23 | CT_ITS ---
History: Vertigo. Paresthesias bilateral upper extremities PROCEDURE: CT head without contrast. COMPARISON: None TECHNIQUE: Axial imaging of the head performed from the skull base to the vertex without IV contrast. Sagittal a nd coronal reformations obtained. DLP: 605 mGy-cm FINDINGS: The ventricles are normal in size, shape and position. Cavum septum pellucidum is incidentally noted. Basal ganglia calcifications are also present. There is no mass, mass effect or midline shift. There is no abnormal extra-axial fluid collection or intracranial hemorrhage. Mucoperiosteal thickening within the left sphenoid sinus. The mastoid air cells are well aerated. No acute displaced fractures within the overlying cranium. Impression: No acute intracranial hemorrhage or suspicious mass effect. Inflammatory sinus disease Reviewed, dictated and finalized at location A. Impression: No acute intracranial hemorrhage or suspicious mass effect. Inflammatory sinus disease
--- OUTSIDE RECORDS SUMMARY | 2024-06-23 14:02 | XMS_ITS | CONTINUITY OF CARE DOCUMENT ---
Author Name jihanjohn, jihanjohn Address Unknown Organization [facility] Address [address] [place] [address] Phone [phone] Care Team Providers Care Drive Man Name Role Phone Brennan Beard MD Unavailable [phone] JEROME WALKER MD Unavailable [phone] JEROME WALKER MD Unavailable [phone] PROBLEMS Condition Status Date Provider Notes CKD active Brennan Beard MD Toe pain, left active Brennan Beard MD Indigestion active Brennan Beard MD Diabetes mellitus active Brennan Beard MD HTN essential active Brennan Beard MD Hyperlipidemia active Brennan Beard MD PVD with claudication active Brennan De Guzman Family History of Hypertension: active Brie Beard MD Family History of Hypertension: active Brie Beard MD Family History of CVA or Stroke: active José Manuel Beard MD EKG active Brennan Beard MD ENCOUNTERS Date Type Provider Location Encounter Diag nosis - In-person encounter Office Visit Brennan Beard MD [facility] CKD - In-person encounter Office Visit Brennan Beard MD [facility] - In-person encounter Office Visit Brennan Beard MD [facility] - In-person encounter Office Visit Brennan Beard MD [facility] Toe pain, left - In-person encounter Office Visit Brennan Beard MD [facility] Indigestion - In-person encounter Office Visit Brennan Beard MD [facility] EKGFamily History of CVA or Stroke:Family History of Hypertension:Family History of Hypertension:PVD with claudicationHyperlipidemiaHTN essentialDiabetes mellitus VITAL SIGNS Date Observation Value Provider Body Mass Index (Ratio) 30.40 kg/m2 Brie Beard MD blood pressure, cuff size large Ke hyuni Erwin blood pressure, diastolic 98 mm[Hg] Ke rri Erwin blood pressure, systolic 156 mm[Hg] Lance ri Erwin oxygen saturation, oximetry 95 % Rasheeda Erwin respiratory rate E&M 16 /min Rasheeda Adolfo green pulse rate 96 /min Rasheeda Villasenor [facility] weight E&M 218 [lb_av] Rasheeda Hamilton [facility] height E&M 71 [in_i] Rasheeda Hamilton [facility] Body Mass Index (Ratio) 30.96 kg/m2 Brie Beard MD blood pressure, cuff size large Ke rri Javyuemansi blood pressure, diastolic 99 mm[Hg] Ke rri Gruenenfeldclaudia blood pressure, systolic 157 mm[Hg] Lance ri Javyuenenfjames oxygen saturation, oximetry 95 % Rasheeda Erwin respiratory rate E&M 15 /min Rasheeda G ruenenfelder pulse rate 95 /min Rasheeda Gruenenfe er weight E&M 222 [lb_av] Rasheeda Gruenenfe lder height E&M 71 [in_i] Rasheeda Gruenenfe er Body Mass Index (Ratio) 30.82 kg/m2 Brie Beard MD blood pressure, diastolic 87 mm[Hg] Ri marcelo Mathis blood pressure, systolic 157 mm[Hg] Moustapha nancy Mathis blood pressure, cuff size large Ri marcelo Mathis oxygen saturation, oximetry 95 % Kelsy Canoerson respiratory rate E&M 16 /min Magalie Canoerson pulse rate 88 /min Kelsy Gilmore son weight E&M 221 [lb_av] Kelsy Cano son height E&M 71 [in_i] Kelsy Gilmore son Body Mass Index (Ratio) 28.87 kg/m2 Brie Beard MD blood pressure, cuff size large Ke rri Gruenenfelder blood pressure, diastolic 80 mm[Hg] Ke rri Gruenenfelder blood pressure, systolic 142 mm[Hg] Lance Hood oxygen saturation, oximetry 95 % Rasheeda Gruenenfasmitaer respiratory rate E&M 16 /min Rasheeda G kimenenfelder pulse rate 104 /min Rasheeda Banenfe lder weight E&M 207 [lb_av] Rasheeda Gruenenfe lder height E&M 71 [in_i] Rasheeda Gruenenfe er Body Mass Index (Ratio) 28.59 kg/m2 Brie Beard MD blood pressure, diastolic 83 mm[Hg] Cy nthia Coates blood pressure, systolic 130 mm[Hg] Daniella Coates pulse rate 88 /min Aziza pastrana oxygen saturation, oximetry 94 % Aziza Coates respiratory rate E&M 16 /min Aziza Coates blood pressure, cuff size regular Silvano Coates weight E&M 205 [lb_av] Aziza pastrana height E&M 71 [in_i] Aziza pastrana Body Mass Index (Ratio) 31.10 kg/m2 Brie Beard MD blood pressure, resting Yes [facility] blood pressure, diastolic 95 mm[Hg] [facility], systolic 152 mm[Hg] [facility] oxygen saturation, oximetry 96 % [facility] respiratory rate E&M 18 /min [facility] pulse rate 100 /min [facility] weight E&M 223 [lb_av] [facility] height E&M 71 [in_i] [facility] ALLERGIES No Known Drug Allergies HISTORY OF MEDICATION USE Medication Status Instructions Dates Provider Indications Com ments amlodipine 5 mg tablet active Take 1 tablet by mouth once a day Brennan Beard MD ASPIRIN 81 81 MG ORAL TABLET DELAYED RELEASE active 1 tablet by mouth once a day Edil Gann RN triamterene-hy drochlorothiaz id 37.5-25 mg tablet active 1 tablet once a day Edil Gann RN LISINOPRIL 5 MG ORAL TABLET completed TAKE 1 TABLET BY MOUTH ONCE DAILY - Edil Gann RN #30, 30 days supply, Prescribed by JF STEWART, Filled 07/05/2020 clopidogrel 75 mg tablet active Take 1 tablet by mouth once a day Rasheeda Hood #30, 30 days supply, Prescribed by ALVARO DAMON, Filled 07/08/2020 CILOSTAZOL 50 MG ORAL TABLET completed one tablet twice a day - Edil Gann RN CILOSTAZOL 50 MG ORAL TABLET completed Take one tablet twice a day - Aziza Coates glipizide 10 mg tablet active Take 1 tablet by mouth twice a day Rasheeda Kurtzer #180, 90 days supply, Prescribed by JEROME WALKER, Filled 05/03/2019 pravastatin 20 mg tablet active Take 1 tablet by mouth once a day Rasheeda Kurtzer #90, 90 days supply, Prescribed by JEROME WALKER, Filled 09/08/2019 AMLODIPINE BESYLATE 10 MG ORAL TABLET completed TAKE 1 TABLET BY MOUTH ONCE DAILY FOR 90 DAYS - Rasheeda Duranelder #90, 90 days supply, Prescribed by JEROME WALKER, Filled 09/08/2019 PRO COMFORT ALCOHOL 70 % PAD completed Use, as directed, once daily to test blood sugar - Rasheeda Kurtzer #100, 90 days supply, Prescribed by Jerome Walker, Filled 09/18/2019 ONETOUCH ULTRA CONTROL IN VITRO SOLUTION completed USE TO CONFIRM ACCURACY OF GLUCOSE METER - Rasheeda Kurtzer #1, 90 days supply, Prescribed by Jerome Walker, Filled 09/18/2019 ONETOUCH ULTRA IN VITRO STRIP completed Use, as directed, once daily to test blood sugar - Rasheeda Jerardoer #100, 90 days supply, Prescribed by Jerome Walker, Filled 09/18/2019 EASY COMFORT LANCETS completed Use, as directed, once daily to test blood sugar - Rasheeda Grjaretnenfelder #100, 90 days supply, Prescribed by Jerome Walker, Filled 09/18/2019 Januvia 100 mg tablet active Take 1 tablet by mouth once a day Rasheeda Kurtzer #30, 30 days supply, Prescribed by JEROME WALKER, Filled 10/03/2019 SOCIAL HISTORY Date Observation Value Provider social history E&M S moking History: Keshav larry is a former smoker. Brennan Beard MD social history reviewed E&M revi ewed - no changes required Brennan Beard MD smoking, date started 1974 Rasheeda Palafoxporsha smoking history, tot al pack/year 46 Rasheeda Hood smoking history, tot al pack/day 1 Rasheeda Duranasmitaclaudia cigarette use yes Rasheeda ramirez smoking status Former smoker Rasheeda collinsjames social history E&M S moking History: Keshav larry is a former smoker. Brennan Beard MD social history reviewed E&M revi ewed - no changes required Brennan Beard MD smoking, date started 1975 Rasheeda Erwin smoking history, tot al pack/year 46 Rasheeda Hood smoking history, tot al pack/day 1 Rasheeda Duranjames cigarette use yes Rasheeda ramirez smoking status Former smoker Rasheeda collinsjames social history E&M S moking History: Keshav larry is a former smoker. Brennan Beard MD social history reviewed E&M revi ewed - no changes required Brennan Beard MD smoking, date started 1975 [place] smoking history, tot al pack/year 46 Kelsy Mathis smoking history, tot al pack/day 1 Kelsy Mathis cigarette use yes Kelsy ramírez smoking status Former smoker Kelsy Pillo doyle smoking history, tot al pack/year 46 Edil Gann RN social history E&M S moking History: P atient currently smokes every day. P atient has been counseled to quit. Brennan Beard MD social history reviewed E&M revi ewed - no changes required Brennan Beard MD smoking/tobacco cess ation, patient education and counseling yes Rasheeda Cosmesenkarinajames smoking, date started 1974 Rasheeda Duranjames smoking history, tot al pack/year 365 Rasheeda Hood smoking history, tot al pack/day 1 Rasheeda Hood cigarette use yes Rasheeda ramirez smoking status Current every day smoker Eddie Palafoxinderjitkarinaasmitaclaudia social history E&M S moking History: P atient currently smokes every day. P atient has been counseled to quit. Brennan Beard MD social history reviewed E&M revi ewed - no changes required Brennan Beard MD smoking/tobacco cess ation, patient education and counseling yes Aziza Coates smoking, date started 1974 Dasha Coates smoking history, tot al pack/year 365 Aziza Coates smoking history, tot al pack/day 1 Aziza Coates cigarette use yes Aziza hong smoking status Current every day smoker Rodger Coates number of grandchildren Brennan Beard MD U fadi Beard MD social history E&M S moking History: P atient currently smokes every day. P atient has been counseled to quit. Brennan Beard MD social history reviewed E&M revi ewed - no changes required Brennan Beard MD smoking/tobacco cess ation, patient education and counseling yes Brennan Beard MD smoking, date started 1974 Halle Mccrary smoking history, tot al pack/year 365 Halle Mccrary smoking history, tot al pack/day 1 Halle Mccrary cigarette use [facility] Current every day smoker T idania Mccrary FAMILY HISTORY Family Member Condition Father Family History of Hy pertension: Father Family History of Di abetes: Mother Family History of Hy pertension: Mother Family History of Di abetes: Mother Family History of CV A or Stroke: INSURANCE PROVIDERS Payer name Policy type / Coverage type Felecia red alliance party ID [employer] MEDICARE GOLD ADVANTAGE HMO Medicare [id number] ADVANCE DIRECTIVES Name Date DISCUSSED - NO DECISION MADE TREATMENT PLAN Date Name Performer [id number],S,W ill check an echo Will check an angiogram as he has totally occluded right SFA and see if he is a candidate for intervention Brennan Beard MD [id number],S,H e needs a renal ultrasound and will check a microalb urine Brennan Beard MD [id number],S, B P today: 156/98 P rior BP: 157/99 (02/12/2022) Brennan Beard MD [id number],S, H is updated medication list for this problem includes: Pravastatin Sodium 20 Mg Oral Tablet (Pravastatin sodium) ..... Take 1 tablet by mouth once daily Brennan Beard MD [id number],S,Per PCP Brennan Beard MD [id number],S,W ill check an angiogram as he has totally occluded right SFA and see if he is a candidate for intervention Brennan Beard MD [id number],S,W ill start him on amlodipine 5mg once daily B P today: 157/99 P rior BP: 157/87 (01/23/2022) Brennan Beard MD [id number],S,Per PCP Brennan Beard MD [id number],C,H e does not know which BP med he is taking. B P today: 157/87 P rior BP: 142/80 (07/18/2020) Brennan Beard MD [id number],S,H e seems to have more problems on his right leg than left and it seems to be getting worse. Will continue medical therapy. WIll repeat his ETHEL and decide if we will do an angiogram. Brennan Beard MD Cardiology:Will chec k an echo Will check an angiogram as he has totally occluded right SFA and see if he is a candidate for intervention Brennan Beard MD Cardiology:He needs a renal ultrasound and will check a microalb urine Brennan Beard MD Cardiology: B P today: 156/98 P rior BP: 157/99 (02/12/2022) Brennan Beard MD Cardiology: H is updated medication list for this problem includes: Pravastatin Sodium 20 Mg Oral Tablet (Pravastatin sodium) ..... Take 1 tablet by mouth once daily Brennan Beard MD Cardiology:Per PCP Brennan Beard MD Cardiology:Will chec k an angiogram as he has totally occluded right SFA and see if he is a candidate for intervention Brennan Beard MD Cardiology:Will star t him on amlodipine 5mg once daily B P today: 157/99 P rior BP: 157/87 (01/23/2022) Brennan Beard MD Cardiology:Per PCP Brennan Beard MD Cardiology:He does n ot know which BP med he is taking. B P today: 157/87 P rior BP: 142/80 (07/18/2020) Brennan Beard MD Cardiology:He seems to have more problems on his right leg than left and it seems to be getting worse. Will continue medical therapy. WIll repeat his ETHEL and decide if we will do an angiogram. Brennan Beard MD Cardiology Follow up : H is updated medication list for this problem includes: Pravastatin Sodium 20 Mg Oral Tablet (Pravastatin sodium) ..... Take 1 tablet by mouth once daily Brennan Beard MD Cardiology Follow up : H is updated medication list for this problem includes: Lisinopril 5 Mg Oral Tablet (Lisinopril) ..... Take 1 tablet by mouth once daily Glipizide 10 Mg Oral Tablet (Glipizide) ..... Take 1 tablet by mouth twice daily with meals Januvia 100 Mg Oral Tablet (Sitagliptin phosphate) ..... Take 1 tablet by mouth once daily for 30 days Brennan Beard MD Cardiology Follow up :As above, repeat ETHEL Brennan Beard MD Cardiology Follow up :He is s/p Successful revascularization of the left lower extremity using multilevel angioplasty per Dr. Robertson. We will repeat his ETHEL as he is having pretty severe L big toe pain, unclear at present if this is due to vascular issues or a gout flareup. Brennan Beard MD Cardiology follow up :The patient was advised to take Omeprazole. Brennan Beard MD Cardiology follow up :The patient's prior stent to the R SFA is now occluded. He continues to have b/l claudication sx. Currently can walk roughly 50 feet and then has to rest because of cramping and fatigue in his legs. I recommend that we repeat his AIF as his sx are affecting his lifestyle and he benefitted from prior AIF's. He also never filled his Cilostazol, we will re-perscribe this med. Brennan Beard MD Cardiology follow up : B P today: 130/83 P rior BP: 152/95 (10/26/2019) His updated medication list for this problem includes: Amlodipine Besylate 10 Mg Oral Tablet (Amlodipine besylate) ..... Take 1 tablet by mouth once daily for 90 days Brennan Beard MD Cardiology follow up : H is updated medication list for this problem includes: Pravastatin Sodium 20 Mg Oral Tablet (Pravastatin sodium) ..... Take 1 tablet by mouth once daily Brennan Beard MD Cardiology follow up : P er PCP Brennan Beard MD Cardiology:Per PCP Brennan Beard MD Cardiology:Elevated today BP today: 152/95 Brennan Beard MD Cardiology:Right leg . Patient is having issues walking due to cramping and stiffness in his R leg. He had intervention done on this leg previously about 8 years ago. Will have to obtain labs before doing AIF. He is able to fufiill his dialy routines. Therefore at this time we will obtain an ETHEL, Echo, and f/u in 6 months. Will start Pletal 50mg BID. Brennan Beard MD Date Name Kidney Ultrasound Complete Echo Microalb/Creatinine Urine, Random PROTHROMBIN TIME WIT H INR CBC (INCLUDES DIFF/P LT) BASIC METABOLIC PANE L W/EGFR AIF Diagnostic - [facility] V CBC (H/H, RBC, INDIC ES, WBC, PLT) BASIC METABOLIC PANE L W/EGFR HEMOGLOBIN A1c Arterial Duplex Bi-L ower EX PROBNP, N TERMINAL LIPID PANEL COMPREHENSIVE METABO LIC PANEL, W/EGFR Arterial Duplex Bi-L ower EX PROTHROMBIN TIME WIT H INR LIPID PANEL CBC (INCLUDES DIFF/P LT) BASIC METABOLIC PANE L W/EGFR AIF Intervention - S [facility] Complete Echo Arterial Duplex Bi-L ower EX HISTORY OF PROCEDURES Procedure Date Procedure Name Provider Procedure Notes S tatus EKG Brennan Beard MD completed EKG Brennan Beard MD completed
--- OUTSIDE RECORDS SUMMARY | 2024-06-23 14:02 | XMS_ITS | Clinical Summary ---
Author Organization [facility] Eleonora rdz Izaiahsen Address [address] [place] [address] Care Team Providers Care Parking Enforcement Manager Name Role Phone Jerome Pardo MD Primary Care Provider + Allergies No known active allergies Medications clopidogreL (PLAVIX) 75 mg Tablet Take 75 mg by mouth daily. 1 Active pravastatin (PRAVACHOL) 20 mg tablet Take 20 mg by mouth daily. Active tamsulosin (FLOMAX) 0.4 mg capsule Take 0.4 mg by mouth daily. Active triamterene-hyd roCHLOROthiazid e (MAXZIDE 25) 37.5-25 mg tablet Take 1 Tablet by mouth daily. 1 Active NIFEdipine (ADALAT CC) 30 mg Extended Release tablet Take 30 mg by mouth daily. Active famotidine (PEPCID) 40 mg tablet Take 40 mg by mouth daily at bedtime. 4 Active ERGOCALCIFEROL, VITAMIN D2, ORAL Take by mouth. Activ e glipiZIDE (GLUCOTROL) 10 mg tablet Take by mouth daily with breakfast. Active canagliflozin (Invokana) 300 mg tablet Take 300 mg by mouth daily before breakfast. Active insulin detemir U-100 (LEVEMIR) 100 unit/mL pen syringe Inject 18 Units by subcutaneous injection daily at bedtime. Active sildenafiL (VIAGRA) 100 mg tablet Take 100 mg by mouth 1 time daily as needed for Erectile Dysfunction. Active Active Problems Problem Noted Date Diagnosed Date Elevated red blood cell count 05/06/2023 Encounters Date Type Department Care Team Description 06/19/2024 Orders Only [facility] - [facility] [address] [place] [address] Polycythemia, secondary 06/05/2024 Orders Only [facility] [address] [place] [address] Polycythemia, secondary 05/22/2024 Orders Only [facility] [address] [place] [address] Polycythemia, secondary 05/08/2024 Orders Only [facility] [address] [place] [address] Polycythemia, secondary 04/24/2024 Orders Only [facility] [address] [place] [address] Polycythemia, secondary 04/11/2024 External Device Data STL ABSTRACTION Provider, Abstract 04/10/2024 Orders Only [facility] - [place] [address] [place] [address] Polycythemia, secondary 03/27/2024 Orders Only [facility] - [place] [address] [place] [address] Polycythemia, secondary from Last 3 Months Family History Medical History Relation Name Comments Cancer Brother 1 No Known Problems Daughter No Known Problems Father Ovarian Cancer Mother No Known Problems Son 1 No Known Problems Son 2 No Known Problems Son 3 Relation Name Status Comments Brother 1 Brother 2 Daughter Alive Father Mother Son 1 Alive Son 2 Alive Son 3 Alive Social History Tobacco Use Types Packs/Day Years Used Date Smoking Tobacco: Former Cigarettes 1 25 Smokeless Tobacco: Never Tobacco Cessation:Counseling Given: Not Answered Alcohol Use Standard Drinks/Week Comments Never 0 (1 standard drink = 0.6 oz pur e alcohol) Sex and Gender Information Value Date Recorded Sex Assigned at Not on file Legal Sex Male 10:56 AM [employer] RE[employer] Gender Identity Not on file Sexual Orientation Not on file Last Filed Vital Signs Vital Sign Reading Time Taken Comments Blood Pressure 147/84 03/16/2024 11:39 AM [employer]PRES[employer]IVE Pulse 87 03/16/2024 11:37 AM [employer] RE[employer]ENT[employer]IVE Temperature 36.8 C (98.2 F) 03/16/2024 11:37 AM [employer] REPRESENTATIVE Respiratory Rate 16 03/16/2024 11:37 AM [employer] REPRESENTATIVE Oxygen Saturation 96% 03/16/2024 11:37 AM [employer] REPRESENTATIVE Inhaled Oxygen Concentration - - Weight 105.7 kg (233 lb) 03/16/2024 11:37 AM [employer] REPRESENTATIVE Height 180.3 cm (5' 11 ) 05/06/2023 10:45 AM [employer] REPRESENTATIVE Body Mass Index 32.5 05/06/2023 10:45 AM [employer] REPRESENTATIVE Plan of Treatment Upcoming Encounters Date Type Department Care Team (Late st Contact Info) Description 06/27/2024 11:15 AM CDT Office Visit [facility] [address] [place] [address] Asim Armendariz MD [address] [place] [address] Health Maintenance Due Date Last Done Comments DIABETES ANNUAL FOOT EXAM 1972 DIABETES ANNUAL RETINAL EXAM 1972 DIABETES MICROALBUMIN ANNUAL SCREEN 1972 LDL CHOLESTEROL ANNUAL 1972 DTAP/TDAP/TD VACCINES (1 - Tdap) 1973 FIT-DNA Q 3 years 12/17/1999 FIT/FOBT Q 1 year 12/17/1999 Flex Sig/CT Colonography Q 5 years 12/17/1999 ZOSTER VACCINE (1 of 2) 2004 RSV VACCINE (60+ or ) (1 - Risk 60-74 years 1-dose series) 2014 PNEUMOCOCCAL VACCINE 50+ YEA RS (2 of 2 - PPSV23) 05/05/2018 03/10/2018 Abdominal Aortic Aneurysm (AAA) Screening 12/17/2019 INFLUENZA VACCINE (#1) 2023 01/23/2015 COVID-19 Vaccine (3 - season) 2023, 07/04/2020 DIABETES HBA1C Q 6 MONTHS 02/04/2024 08/04/2023, 07/2023 [place]) Prev entative Visit/Annual Wellness Visit 04/05/2024 COLORECTAL SCREENING 06/02/2031 06/02/2021, 09/20/19 20 Colorectal Cancer Screening 06/02/2031 Insurance [facility] [id number] Care Teams Parking Enforcement Manager Relationship Specialty Start Date End Date Jermoe Pardo MD [address] [place] [phone] PCP - General Family Practice 05/06/23
--- OUTSIDE RECORDS SUMMARY | 2024-06-23 14:02 | XMS_ITS ---
Author Organization [facility] Address [address] [place], [place] [id number] Care Team Providers Care Eggs Inspector Name Role Phone ESCOBAREddie TIMOTEO Unavailable [phone] Jerome Pardo Unavailable Unavailable REASON FOR VISIT Patient presents for at-risk foot care . The patient has painful toenails and calluses that are causing difficulty with ambulation and shoegear. The onset is gradual Medications Medication SIG (Take, Route, Frequency, Duration) Notes Start Date End Date Status isopropyl alcohol 0.7 ML/ML Medicated Pad isopropyl alcohol 0.7 ML/ML Medicated PadOriginal Medicationisopropyl alcohol 0.7 ML/ML Medicated Pad *Reorder from [employer] for eRx and Interaction Alerts* 10/27/2021 12/20/2045 Active Encounters Encounter Location Date Provider Diagnosis [facility] [address] [place], [place] [id number] 01/24/2024 TIMOTEO BARRAZA Tinea unguium B35.1 ; Acquired keratosis [keratoderma] palmaris et plantaris L85.1 ; Atherosclerosis of comanche arteries of extremities with intermittent claudication, bilateral legs I70.213 ; Pain in right foot M79.671 and Pain in left foot M79.672 Assessments Encounter Date Diagnosis (ICD Code) Assessment Notes Treatment Notes Treatment Clinical Notes Section Notes 01/24/2024 Tinea unguium (ICD-10 - B35.1) Nails 1-5 Bilateral were debrided extensively with nail nippers and emery board, reducing length and girth to pink healthy tissue with any subungual debris and necrotic tissue removed 01/24/2024 Acquired keratosis [keratoderma] palmaris et plantaris (ICD-10 - L85.1) A total of 3 corns or calluses, as described in the note above, were cut and pared utilizing a #15 blade 01/24/2024 Atherosclerosis of comanche arteries of extremities with intermittent claudication, bilateral legs (ICD-10 - I70.213) 01/24/2024 Pain in right foot (ICD-10 - M79.671) 01/24/2024 Pain in left foot (ICD-10 - M79.672) Plan Of Treatment Treatment Notes Assessment Notes Tinea unguium Nails 1-5 Bilateral were debrided extensively with nail nippers and emery board, reducing length and girth to pink healthy tissue with any subungual debris and necrotic tissue removed Acquired keratosis [keratode rma] palmaris et plantaris A total of 3 corns or calluses, as described in the note above, were cut and pared utilizing a #15 blade Next Appt Details Follow Up: 10 - 12 weeks, Re ason: At-Risk Foot care, sooner if problems develop. Provider Name:TIMOTEO BARRAZA, 10:30:00 AM, [address], [address], [phone], Progress Notes * GURPREET CARTERZOOB:1955 ([age] yo M)Acc No.[id number]:01/24/2024 Patient: PATRICK KIRBY Provider: Sundeep Barraza DPM :1955 A ge:68 Y S ex:Male Date:01/24/2024 Address:[address] [facility] [address] [place], [id number] Subjective: * Chief Complaints: * Keshav larry presents for at-risk foot care . The patient has painful toenails and calluses that are causing difficulty with ambulation and shoegear. The onset is gradual * HPI: H PI: General care Keshav larry presents to the office for diabetic foot care. Patient states that their nails are thickened, elongated and painful. Patient states that it is aggravated by shoe gear. Onset is gradual., Patient is taking prescription blood thinners., Date last seen by Dr. Pardo was 12/2023., Initials mca. * ROS: G eneral / Constitutional: Patient denies c hange in appetite, fatigue, chills, fever, night sweats. M usculoskeletal: Patient complains of a rthritis. P eripheral Vascular: Patient denies u lceration of feet. S kin: Patient complains of f ungal nails, dry skin. ? * Medical History: * Surgical History: * Hospitalization/Major Diagno stic Procedure: * Medications: T akingisopropyl alcohol 0.7 ML/ML Medicated Pad , stop date 12/20/2045, Notes to Pharmacist: isopropyl alcohol 0.7 ML/ML Medicated PadOriginal Medicationisopropyl alcohol 0.7 ML/ML Medicated Pad *[facility] and Interaction Alert[facility]*Medication List reviewed and reconciled with the patientTaking isopropyl alcohol 0.7 ML/ML Medicated Pad , stop date 12/20/2045, Notes to Pharmacist: isopropyl alcohol 0.7 ML/ML Medicated PadOriginal Medicationisopropyl alcohol 0.7 ML/ML Medicated Pad *[facility] and Interaction Alerts*Medication List reviewed and reconciled with the patient Objective: * Vitals: * Examination: P hysical Examination: General appearance: A lert, pleasant, well-nourished and in no acute distress. D ermatologic: Skin findings: S kin is thin, atrophic and lacking pedal hair. Hypertrophic / hyperkeratotic lesion: p lantar aspect of the right 5th metatarsal head and right heel, left 5th metatarsal head. Nail pathology: N ails 1, 2, 3, 4, and 5 bilateral are elongated, thick, discolored, and dystrophic with subungual debris. They are painful to palpation. ? V ascular: Dorsalis pedis pulse: 1 /4 b ilateral. Posterior tibial pulse: 0 /4 bilateral. Capillary refill: g reater than 3 seconds. Edema: N o edema bilateral. N eurologic: Gross sensation G rossly intact to light touch. There is negative Tinel's sign. M usculoskeletal: Muscle Strength M uscle strength is 5/5 in regards to dorsiflexion, plantarflexion, inversion, and eversion in bilateral lower extremities. ? Assessment: * Assessment: 1. T rejia unguium - B35.1 (Primary) 2 . 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 A therosclerosis of comanche arteries of extremities with intermittent claudication, bilateral legs - I70.213 4 . P ain in right foot - M79.671 5 . P ain in left foot - M79.672 Plan: * Treatment: 2. A cquired keratosis [keratoderma] palmaris et plantaris Notes: A total of 3 corns or calluses, as described in the note above, were cut and pared utilizing a #15 blade * Procedure Codes: * Follow Up: 1 0 - 12 weeks (Reason: At-Risk Foot care, sooner if problems develop.) * Billing Information: * Visit Code: 64979 Office Visit, Est Pt., Level 3. * Procedure Codes: * PER MAKER Sign off status: Completed true * Provider: Sundeep Barraza DPM Date: Generated for Mitchell tucker/Raj/Radha on: 0 06/23/2024 02:02 PM CDT History and Physical Notes * HPI (History of Present Illness) Category Sub-Category Detail Notes Category Not es HPI General care Patient presents to the office for diabetic foot care. Patient states that their nails are thickened, elongated and painful. Patient states that it is aggravated by shoe gear. Onset is gradual., Patient is taking prescription blood thinners., Date last seen by Dr. Pardo was 12/2023., Initials mca Examination Category Sub-Category Detail Notes Category Not es Dermatologic Skin findings: Skin is thin, at rophic and lacking pedal hair Nail pathology: Nails 1, 2, 3, 4, an d 5 bilateral are elongated, thick, discolored, and dystrophic with subungual debris. They are painful to palpation Hypertrophic / hyperkeratotic lesion: pl colt aspect of the right 5th metatarsal head and right heel, left 5th metatarsal head Neurologic Gross sensation Grossly intact t o light touch. There is negative Tinel's sign Vascular Dorsalis pedis pulse: 1/4 bilateral Edema: No edema bilateral Capillary refill: greater than 3 secon ds Posterior tibial pulse: 0/4 bilateral Physical Examination General appearance: Alert, pleasant, well-nourished and in no acute distress Musculoskeletal Muscle Strength Muscle strength is 5/5 in regards to dorsiflexion, plantarflexion, inversion, and eversion in bilateral lower extremities
--- OUTSIDE RECORDS SUMMARY | 2024-06-23 14:02 | XMS_ITS | Encounter Summary ---
Author Organization [facility] Address [address] [place] [address] Care Team Providers Care Home Theatre Technician Name Role Phone Jerome Pardo MD Primary Care Provider [phone] Encounter Details Date Type Department Care Team (Late st Contact Info) Description 09/18/2019 Lab Requisition [facility] [address] [place] [address] Bobby Streeter MD Social History Tobacco Use Types Packs/Day Years Used Date Smoking Tobacco: Never Assessed Sex and Gender Information Value Date Recorded Sex Assigned at Not on file Gender Identity Not on file Sexual Orientation Not on file documented as of this encounter Plan of Treatment Not on file documented as of this encounter Procedures Procedure Name Priority Date/Time Associated Diagnosis Comments SARS-COV-2 (COVID-19) IN HOUSE Routine 09/17/2019 7:52 PM CDT documented in this encounter Results * SARS-COV-2 (COVID-19) IN HOUSE (09/17/2019 7:52 PM CDT) COVID-19 PCR Not detected Not detected, Invalid 09/18/2019 5:21 PM CDT [facility] Microbiology SPECIMEN FROM NASOPHARYNGEAL STRUCTURE / Unknown Collection / Unknown 09/17/2019 7:52 PM CDT 09/18/2019 9:15 AM CDT Narrative [facility] - 09/18/2019 5:21 PM CDT This Real Time RT-PCR assay was developed and its performance characteristics determined by [facility]. This test has been authorized by the Food and Drug administration (FDA)under an Emergency Use Authorization (EUA). This test has been validated in accordance with the FDA's guidance document Policy for Diagnostic Testing in Laboratories Certified to perform High Complexity Testing under CLIA prior to Emergency Use Authorization for Coronavirus Disease-2019 during the Public Health Emergency issued on June 03, 2019. FDA independent review of this validation is pending. This test is only authorized for the duration of time the declaration that circumstances exist justifying the authorization of emergency use of in vitro diagnostic tests for detection of SARS-CoV-2 virus and/or diagnosis of COVID-19 infection under section 564(b)(1) of the Act, 21 U.S.C 360bbb-3 (b)(1), unless the authorization is terminated or revoked sooner. Bobby Streeter MD LAB - MICROBIOLOGY ORDERABLES [facility] [address] [place], [place] [address], [facility] [phone] documented in this encounter Visit Diagnoses Not on filedocumented in this encounter Additional Health Concerns Infection Onset Date Last Indicated Resolved Time COVID-19 Under Investigation 09/18/2019 09/17/2019 09/18/2019 5:21 PM CDT documented as of this encounter Care Teams Home Theatre Technician Relationship Specialty Start Date End Date Jerome Pardo MD [address] [place] [id number] PCP - General 06/01/19 documented as of this encounter
--- OUTSIDE RECORDS SUMMARY | 2024-06-23 14:02 | XMS_ITS | Data Portability ---
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 03/27/2024 07:13:43 Past Encounters Encounter ID Performer Location Encounter Start Date Encounter Closed Date Diagnosis/Indication Diagnosis SNOMED-CT Code Diagnosis ICD10 Code Diagnosis Note [id number] [address] [place] [address] 03/05/2014 16:12:49 03/05/2014 17:04:36 Essential hypertension 79995766 Well-contr olled. Type 2 juanita betes mellitus 88129020 Much better now than in the past. Arthritis 6810496 Adult [facility] examination 513586551 Patient will make an appointmen t to come back in April 2014 for a complete examinatio n. Impotence 639251950 A prescripti on for Viagra was written. [id number] Jerome Walker MD [facility] [address] [place] [address] 04/24/2014 10:23:19 04/24/2014 13:57:28 Type 2 diabetes mellitus 14252765 Essential hypertension 65547432 Well-contr olled. Arthritis 5702131 Impotence 131869174 A prescripti on for Viagra was written. Smoker 62798117 Adult heal th examination 180903362 Patient will make an appointmen t to come back in April 2014 for a complete examinatio n. [id number] Mima Ferrera [facility] [address] [place] [address] 07/23/2014 10:30:01 07/23/2014 14:51:37 Essential hypertension 28355135 Well-contr olled. Type 2 juanita betes mellitus 91459039 Impotence 426635681 A prescripti on for Viagra was written. [id number] Shereen Hart MA [place] [address] [place] [address] 1 09/18/2014 13:28:40 09/18/2014 15:11:43 History of pneumonia 641572127 Ex-smoker 4230588 Type 2 juanita betes mellitus 21336981 [id number] Leann Mcdonald [place] [address] [place] [address] 1 10/22/2014 10:47:47 10/22/2014 13:45:20 History of pneumonia 544111003 Ex-smoker 3330392 Type 2 juanita betes mellitus 75643823 Obesity 648595525 [id number] Jerome Walker MD [place] [address] [place] [address] 1 11/05/2014 15:57:27 11/06/2014 12:03:37 Burn of upper limb 0694151 Impotence 479918024 A prescripti on for Viagra was written. Injury of shoulder region 007946769 [id number] Shereen Hart MA [place] [address] [place] [address] 1 01/22/2015 10:07:02 01/23/2015 08:36:34 Type 2 diabetes mellitus 36120770 E11.9 Essential hypertension 36197052 I10 Well-contr olled. Adult [facility] examination 167919169 Z00.00 Patient will make an appointmen t to come back in April 2014 for a complete examinatio n. Influenza vaccine needed 7381865116 106 Z28.3 [id number] Jerome Walker MD [facility] [address] [place] [address] 1 03/25/2015 10:12:10 03/25/2015 14:58:48 Type 2 diabetes mellitus 80285466 E11.9 Essential hypertension 07417612 I10 Well-contr olled. Impotence 126270000 N52. 9 A prescripti on for Viagra was written. [id number] Jerome Walker MD [facility] [address] [place] [address] 1 04/24/2015 09:56:35 04/25/2015 09:02:16 Type 2 diabetes mellitus 55031375 E11.9 Essential hypertension 22734730 I10 Well-contr olled. [id number] Jerome Walker MD [place] [address] [place] [address] 1 06/24/2015 09:56:51 06/24/2015 16:57:50 Type 2 diabetes mellitus 56504666 E11.9 Essential hypertension 65978027 I10 Well-contr olled. [id number] Jerome Walker MD [place] [address] [place] [address] 1 07/25/2015 10:10:18 07/25/2015 14:21:45 Type 2 diabetes mellitus 36204747 E11.9 Essential hypertension 85486783 I10 Well-contr olled. Conjunctivitis 0084902 H 10.9 Gastroesop hageal reflux disease 211023450 K21.9 [id number] Jerome Walker MD [place] [address] [place] [address] 1 09/16/2015 10:00:41 09/16/2015 12:50:17 Essential hypertension 24176835 I10 Well-contr olled. Type 2 juanita betes mellitus 42657113 E11.9 Gastroesop hageal reflux disease 433145850 K21.9 [id number] Jerome Walker MD [place] [address] [place] [address] 1 12/05/2015 09:59:24 12/05/2015 13:35:00 Essential hypertension 11246547 I10 Well-contr olled. Type 2 juanita betes mellitus 82490760 E11.9 Gastroesop hageal reflux disease 024380310 K21.9 Hip pain 93502600 M25.55 2 [id number] Jerome Walker MD [place] [address] [place] [address] 1 02/19/2016 09:40:08 02/21/2016 10:31:00 Type 2 diabetes mellitus 35564906 E11.9 Essential hypertension 44512293 I10 Well-contr olled. [id number] Jerome Walker MD [place] [address] [place] [address] 1 06/18/2016 10:31:04 06/18/2016 15:42:28 Gastroesophageal reflux disease 582315947 K21.9 Type 2 juanita betes mellitus 72179278 E11.9 Essential hypertension 85477366 I10 Well-contr olled. Dyslipidemia 326088380 E 78.5 [id number] Jerome Walker MD [place] [address] [place] [address] 1 10/08/2016 11:14:00 10/12/2016 15:14:28 Type 2 diabetes mellitus 64560075 E11.9 [id number] Jerome Walker MD [place] [address] [place] [address] 1 01/12/2017 10:32:11 01/13/2017 13:42:31 Essential hypertension 75851443 I10 Well-contr olled. Diabetes mellitus 801572 09 E11.9 Cervical radiculopathy 10196062 M54.12 [id number] Jerome Walker MD [place] [address] [place] [address] 1 02/08/2017 10:59:55 02/10/2017 14:00:07 Type 2 diabetes mellitus 88131303 E11.9 Essential hypertension 04868257 I10 Well-contr olled. Obesity 008649968 E66.9 Injury of foot 718513935 S99.921A Injury of knee 799557053 S89.91XA Gastroesop hageal reflux disease 895614121 K21.9 Hip pain 87880918 M25.55 2 [id number] Jerome Walker MD [place] [address] [place] [address] 1 05/10/2017 10:48:33 05/10/2017 16:21:33 Type 2 diabetes mellitus 13845461 E11.9 Pt states that he will call us when his insurance changes so that we can then call in new rxs. Essential hypertension 81933378 I10 Well-contr olled. [id number] Jerome Walker MD [place] [address] [place] [address] 1 07/08/2017 10:30:45 07/12/2017 12:24:16 Gastroesophageal reflux disease 305311349 K21.9 Arthritis 1936679 M19.90 Type 2 juanita betes mellitus 21787370 E11.9 Essential hypertension 09657306 I10 Well-contr olled. Overweight 286593892 E66 .3 Type 2 juanita betes mellitus without complication 897150065 E11.9 [id number] MD Dereck Dickinson [address] [facility] [place] [address] 11/04/2017 10:00:28 11/08/2017 10:55:26 Essential hypertension 55024340 I10 Well-contr olled. Type 2 juanita betes mellitus 51817294 E11.9 Obesity 838944875 E66.9 [id number] MD Dereck Dickinson 14 IM [address] [facility] [place] [address] 12/29/2017 15:02:26 12/30/2017 11:18:01 Type 2 diabetes mellitus 70210945 E11.9 Adult heal th examination 616617612 Z00.00 Pt declines influenza vaccinatio n. Foot pain 52761049 M79.6 71 [id number] MD Dereck Dickinson 14 [address] [facility] [place] [address] 03/10/2018 15:15:27 03/14/2018 11:12:32 Type 2 diabetes mellitus 97275705 E11.9 Adult heal th examination 105922139 Z00.00 Pt declines influenza vaccinatio n. Cough 34484687 R05 [id number] MD Dereck Diciknson 14 IM [address] [facility] [place] [address] 06/06/2018 10:38:56 06/06/2018 14:50:48 Type 2 diabetes mellitus 62791436 E11.9 Arthritis 2943060 M19.90 Ex-smoker 2430959 Z87.89 1 Obesity 565638834 E66.9 [id number] MD Dereck Dickinson 14 IM [address] [facility] [place] [address] 09/06/2018 09:57:09 09/07/2018 16:12:06 Type 2 diabetes mellitus 01426091 E11.9 Smoker 48371726 F17.200 Pt restarted but cannot say why. He is motivated to quit again. Smokers' cough 89850266 J41.0 Impotence 523789123 N52. 9 A prescripti on for Viagra was written. Essential hypertension 21423356 I10 Well-contr olled. [id number] MD Dereck Dickinson [address] [facility] [place] [address] 12/12/2018 10:04:41 12/13/2018 08:58:46 Type 2 diabetes mellitus 59083627 E11.9 Loss of se nse of smell 48704130 R43.0 If no better by the end of December 2018, we will refer him to an ENT specialist . [id number] MD Dereck Dickinson [address] [facility] [place] [address] 12/30/2018 16:03:08 01/02/2019 09:36:35 Type 2 diabetes mellitus 95105123 E11.9 Lateral ep icondylitis of left humerus 3855229551 59759 M77.12 Loss of se nse of smell 34633997 R43.0 History of polyp of colon 565115058 Z86.010 we will plan on doing this in early 2019 Trying to give up smoking 511385053 Z72.0 [id number] MD Dereck Dickinson [address] [facility] [place] [address] 06/26/2019 11:02:08 06/27/2019 14:17:18 Type 2 diabetes mellitus 73744373 E11.9 History of polyp of colon 979139787 Z86.010 Screening for malignant neoplasm of prostate 526023060 Z12.5 Smoker 13507892 F17.200 Peripheral vascular disease 770435402 I73.9 Adult heal th examination 260852027 Z00.00 He will consider the shingrix vaccinatio n in the future. [id number] MD Dereck Dickinson [address] [facility] [place] [address] 06/14/2020 16:47:12 06/17/2020 13:17:04 Type 2 diabetes mellitus 53561538 E11.9 HgbA1c is 10.4 Infection of tooth 88331 8007 K04.7 Peripheral arterial occlusive disease 037389115 I73.9 Ex-smoker 2445140 Z87.89 1 [id number] MD Dereck Dickinson [address] [facility] [place] [address] 08/14/2020 11:34:32 08/16/2020 21:27:00 Type 2 diabetes mellitus 38839324 E11.9 HgbA1c is excellent at 7.8. Administra tion of SARS-CoV-2 antigen vaccine 139081797 Z23 Smoker 62949287 F17.200 11-12 cigarettes a day [id number] MD Dereck Dickinson 14 IM [address] [facility] [place] [address] 12/17/2020 08:42:03 12/20/2020 06:44:41 Smoker 11964547 F17.200 11-12 cigarettes a day Overweight 045857827 E66 .3 Type 2 juanita betes mellitus 92404020 E11.9 HgbA1c is excellent at 7.8. Essential hypertension 67892073 I10 Gastroesop hageal reflux disease 545945854 K21.9 Active or passive immunization 766932639 Z23 Foot callus 232256410 L8 4 Pt states that he needs more frequent podiatry visits because of attention needed to foot calluses. [id number] MD Dereck Dickinson 14 IM [address] [facility] [place] [address] 03/06/2021 11:01:06 03/10/2021 10:20:06 Smoker 97332015 F17.200 11-12 cigarettes a day Type 2 juanita betes mellitus 94488636 E11.9 Screening for malignant neoplasm of colon 117594741 Z12.11 screening colonoscop y was done on 01-06-2016 --to be repeated in three years [id number] MD Dereck Dickinson 14 IM [address] [facility] [place] [address] 08/06/2021 15:19:11 08/08/2021 12:47:43 Type 2 diabetes mellitus 80695729 E11.9 [id number] MD Dereck Dickinson 14 IM [address] [facility] [place] [address] 09/11/2021 10:46:15 09/12/2021 13:15:44 Type 2 diabetes mellitus 75258450 E11.9 Secondary erectile dysfunction 948839301 N52.39 [id number] MD Dereck Dickinson 14 IM [address] [facility] [place] [address] 12/11/2021 10:52:47 12/15/2021 18:01:15 Smoker 83073603 F17.200 11-12 cigarettes a day Obesity 824958882 E66.9 Abdominal aortic aneurysm screening 476077237 Z13.6 Screening for malignant neoplasm of prostate 888325829 Z12.5 Benign pro static hyperplasia 635915010 N40.0 Serum crea tinine above reference range 187890396 R79.89 Vitamin D deficiency 347 37432 E55.9 [id number] MD Dereck Dickinson 14 IM [address] [facility] [place] [address] 02/16/2022 10:33:23 02/18/2022 09:22:10 Essential hypertension 93100624 I10 Type 2 juanita betes mellitus 22416858 E11.9 pt has now restarted using insulin in obtaining better control of blood sugars [id number] MD Dereck Dickinson 14 IM [address] [facility] [place] [address] 07/07/2022 10:27:56 07/08/2022 15:41:07 Under care of banker mason 269474243 Z76.[address] Beto Beckett Type 2 juanita betes mellitus 57466156 E11.9 pt has now restarted using insulin in obtaining better control of blood sugars Peripheral vascular disease 396743364 I73.9 followed by a specialist Essential hypertension 41677621 I10 well-contr olled Secondary erectile dysfunction 432640133 N52.39 Ex-smoker 8366868 Z87.89 1 since February 2022 Screening for malignant neoplasm of prostate 178505968 Z12.5 Vitamin D deficiency 347 05963 E55.9 Screening for malignant neoplasm of respiratory tract 020714942 Z12.2 [id number] MD Dereck Dickinson 14 IM [address] [facility] [place] [address] 10/20/2022 15:36:00 10/22/2022 12:35:44 Obesity 988010442 E66.9 Type 2 juanita betes mellitus 14632689 E11.9 increase levemir from 18 to 21 units Screening for malignant neoplasm of colon 804751705 Z12.11 screening colonoscop y was done on 01-06-2016 --to be repeated in three years--it was done at [facility] Screening for malignant neoplasm of prostate 429372852 Z12.5 PSA was WNL on 23 Under care of banker mason 623274315 Z76.[address] Beto [facility]ett [id number] MD Dereck Dickinson 14 IM [address] [facility] [place] [address] 02/04/2023 12:14:30 02/08/2023 16:04:15 Obesity 886117288 E66.9 Under care of banker mason 084536819 Z76.[address] Beto Beckett Under care of food safety scientist 826475123 Z76.89 Immunization advised 310 391241 Z71.9 pt was encouraged to consider the pneumovax 23 and the shingrix vaccinatio ns Ex-smoker 6362541 Z87.89 1 since February 2022 Type 2 juanita betes mellitus 58960566 E11.9 increase levemir from 18 to 21 units [id number] MD Dereck Dickinson 14 IM [address] [facility] [place] [address] 05/20/2023 13:50:53 05/25/2023 12:50:28 Obesity 394836166 E66.9 Essential hypertension 03983134 I10 Type 2 juanita betes mellitus 04165453 E11.9 pt is presently taking 24 units of levemir daily--Hgb A1c is better than at last check Ex-smoker 6802702 Z87.89 1 since February 2022 Under care of dairy feed mixing operator 637604885 Z76.89 Under care of banker mason 852294334 Z76.[address] [facility] [address] Beto Beckett [id number] MD Dereck Dickinson 14 IM [address] [facility] [place] [address] 08/26/2023 14:44:49 09/01/2023 15:01:22 Tetanus diphtheria and acellular pertussis vaccination declined 3434463981 3077154 Z28.20 Type 2 juanita betes mellitus 68193024 E11.9 pt is presently taking 24 units of levemir daily--Hgb A1c is better than at last check Under care of banker mason 347272652 Z76.[address] Beto Beckett Benign ess ential hypertension 1738730 I10 [id number] MD Dereck Dickinson 14 IM [address] [facility] [address] [place] [address] 2023 12:16:01 12/21/2023 10:41:21 Type 2 diabetes mellitus 98739874 E11.9 Due to increased Hgba1C, pioglkenyetta ne is now added. Dependence on continuous positive airway pressure ventilation 943896324 Z99.[address] Antonio Obesity 740993425 E66.9 Screening for malignant neoplasm of prostate 040431826 Z12.5 PSA was WNL on Screening for malignant neoplasm of colon 208325536 Z12.11 screening colonoscop y was done on 06-03-21--t o be repeated in five years--it was done at [facility] [id number] MD Dereck Dickinson 14 IM [address] [facility] [place] [address] 03/21/2024 11:05:07 03/27/2024 11:02:50 Administration of pneumococcal vaccine 57590554 Z23 Numbness of hand 2870853 04 R20.0 for 4 weeks now Under care of banker mason 494304768 Z76.[address] Beto Beckett--pt has an upcoming appt with him in [place] Under care of dairy feed mixing operator 869996165 Z76.89 Type 2 juanita betes mellitus 78478885 E11.9 blood was recommende d today--pt prefers to wait until seen by nephrologi st [facility] Concerns Section Related Observation LastModified by Organization Detai ls LastModified Time None Recorded Concern Status LastModified by Organization Details LastModified Time None Recorded Advance Directives Directive Y: Casey Jaimes Jr. Payers Encounter Date Sequence Insurance Name Policy Number Policy Reeder Covered Member ID Reeder Member ID Guarantor Name 02/04/2023 1 [employer] (MEDICARE REPLACEMENT/A DVANTAGE - POS) [id number] Casey Jaimes [id number] Casey Jaimes 05/20/2023 1 [facility] (MEDICARE REPLACEMENT/A DVANTAGE - POS) [id number] Casey Jaimes [id number] Casey Jaimes 08/26/2023 1 [employer] (MEDICARE REPLACEMENT/A DVANTAGE - POS) [id number] Casey Jaimes [id number] Casey Jaimes 2023 1 [facility] (MEDICARE REPLACEMENT/A DVANTAGE - POS) [id number] Casey Jaimes [id number] Casey Jaimes 03/21/2024 1 [facility] (MEDICARE REPLACEMENT/A DVANTAGE - POS) [id number] Casey Jaimes [id number] Casey Jaimes Notes Date Note Type Note Provider Name and Address Organization Details Recorded Time 02/04/2023 text/html Pt presents for a regular checkup, with concerns as per intake note. Jerome Walker MD Attn: Accounting,[address] [facility], [place], [address], [place] [facility] 02/08/2023 15:16:39 05/20/2023 text/html 67y male past medical hx of diabetes, HTN, and secondary polycythemia.Home BS readings 113, 187. No changes in vision, or peripheral neuropathy sx. Compliant on blood pressure medications. Visited hematology one week ago with phlebotomy tx. Next appt with hematology is in 3 months. BP re-check today: 120/65 Jerome Walker MD Attn: Accounting,[address] [facility], [place], [address], [place] [facility] 05/24/2023 22:36:43 08/26/2023 text/html Pt presents for regular followup. Jerome Walker MD Attn: Accounting,[address] [facility], [place], [address], [place] [facility] 08/31/2023 08:15:21 2023 text/html Regular checkup. Jerome abdalla MD Attn: Accounting,[address] [facility], [place], [address], [place] [facility] 12/20/2023 14:51:31 03/21/2024 text/html Regular checkup. Jerome abdalla MD Attn: Accounting,[address] [facility], [place], [address], [place] [facility] 03/27/2024 07:18:10
--- OUTSIDE RECORDS SUMMARY | 2024-06-23 14:02 | XMS_ITS | Clinical Summary ---
Author Organization [facility] Address [address] [place] [address] Care Team Providers Care Commercial Sales Director Name Role Phone Jerome Pardo MD Primary Care Provider [phone] Source Comments [facility],non-owned Affiliates and Associated Physician Practices is amultiple site organization consisting of ambulatory clinics and hospital sitesin [place], [place]. This disclosure is being madepursuant to the Care Everywhere program and may not contain all information available regarding this patient. Last updated 17.[facility] Social History Tobacco Use Types Packs/Day Years Used Date Smoking Tobacco: Never Assessed Sex and Gender Information Value Date Recorded Sex Assigned at Not on file Gender Identity Not on file Sexual Orientation Not on file Plan of Treatment Health Maintenance Due Date Last Done Comments COLOGUARD (AGES 45-75) - COL ON CA SCREENING 1954 COLON MONITORING 1954 COLONOSCOPY - COLON CA SCREENING 1954 CT COLONOGRAPHY - COLON CA SCREENING 1954 Colorectal Cancer Screening 1954 FIT - COLON CA SCREENING 1954 FLEX SIG - COLON CA SCREENING 1954 LIPID TESTING 1954 HEPATITIS C SCREENING 12/11/1972 DTAP/TDAP/TD VACCINES (1 - Tdap) 1973 PNEUMOCOCCAL VACCINE 50+ (1 of 1 - PCV) 2004 ZOSTER VACCINE (1 of 2) 2004 COVID-19 VACCINE ( - 2023-2 5 season) 2023 INFLUENZA VACCINE (#1) 2023 DEPRESSION SCREENING 04/05/2024 Respiratory Syncytial Virus (RSV) Vaccine Pt: or over 60 yrs (1 - 1-dose 75+ series) 2029 HEPATITIS B VACCINE Aged Out No longe r eligible based on patient's age to complete this topic HIB VACCINE Aged Out No longer eligi ble based on patient's age to complete this topic HPV VACCINE Aged Out No longer eligi ble based on patient's age to complete this topic MENINGOCOCCAL (Group B) VACC INE SHARED DECISION-MAKING Aged Out No longer eligibl e based on patient's age to complete this topic MENINGOCOCCAL GROUPS A/C/Y/W VACCINE Aged Out No longer eligible b ased on patient's age to complete this topic Care Teams Commercial Sales Director Relationship Specialty Start Date End Date Jerome Pardo MD [address] [place] [phone] PCP - General 06/01/19
--- OUTSIDE RECORDS SUMMARY | 2024-06-23 14:02 | XMS_ITS | Clinical Summary ---
Author Organization [facility] , [facility] Address [address] [address] Phone Care Team Providers Care Batter Mixer Helper Name Role Phone Unavailable Primary Care Provider Unavailabl e Allergies No known active allergies Medications * This document contains information received from the source organization and may not represent a complete record from that organization. clopidogrel (PLAVIX) 75 MG tablet Take 75 mg by mouth 1 (one) time each day 1 Active triamterene-hyd roCHLOROthiazid e (MAXZIDE-25) 37.5-25 MG per tablet Take 1 tablet by mouth 1 (one) time each day 1 Active pravastatin (PRAVACHOL) 20 MG tablet Take 20 mg by mouth 1 (one) time each day 0 Active glipiZIDE (GLUCOTROL) 10 MG tablet Take 10 mg by mouth 1 (one) time each day 9 Active Canagliflozin (Invokana) 300 MG tablet Take 1 tablet by mouth 1 (one) time each day Active NIFEdipine CC (ADALAT CC) 30 MG 24 hr tablet Take 30 mg by mouth 1 (one) time each day before breakfast Do not crush, chew, or split. Active tamsulosin (FLOMAX) 0.4 MG 24 hr capsule Take 0.4 mg by mouth 1 (one) time each day Active Cholecalciferol (Vitamin D3) 1.25 MG (25437 UT) tablet Take 1 tablet by mouth per week Active insulin detemir (LEVEMIR) 100 UNIT/ML injection Inject 26 Units under the skin every night Active sildenafil (VIAGRA) 100 MG tablet Take 100 mg by mouth 1 (one) time each day if needed for erectile dysfunction Active famotidine (PEPCID) 40 MG tablet Take 1 tablet (40 mg total) by mouth every night 90 tablet 05/01/19 26 Active Active Problems Problem Noted Date Diagnosed Date Secondary polycythemia 08/10/2023 Type 2 diabetes mellitus 04/28/2022 Ex-cigarette smoker 03/17/2022 Stage 3a chronic kidney disease 03/17/2022 Abdominal aortic aneurysm without rupture 2021 Peripheral vascular disease 03/17/2022 Vitamin D deficiency 03/12/2022 Gastroesophageal reflux disease 03/12/2022 Hyperlipidemia 10/26/2019 Essential hypertension 10/02/2019 Obstructive sleep apnea syndrome 10/02/2019 Encounters Date Type Department Care Team Description 05/02/2024 11:15 AM LOGISTICS SERVICE REPRESENTATIVE [facility] [address] [facility] [address] [place] [id number] Beto Beckett MD Stage 3a chronic kidney disease (HCC) (Primary Dx); Essential hypertension; Type 2 diabetes mellitus, not otherwise specified (HCC); Pure hyperglyceridemia; Obstructive sleep apnea syndrome; Ex-cigarette smoker; Peripheral vascular disease (HCC); Gastroesophageal reflux disease 05/01/2024 Refill [facility] [facility], [address] [phone] Eladia Adames CMA 04/27/2024 Orders Only [place] [facility] [address] [phone] Beto Beckett MD from Last 3 Months Family History Medical History Relation Comments Cancer Mother Diabetes Mother Hypertension Mother Relation Status Comments Father Mother Social History Tobacco Use Types Packs/Day Years Used Date Smoking Tobacco: Former Cigarettes Smokeless Tobacco: Never Tobacco Cessation:Counseling Given: Not Answered Alcohol Use Standard Drinks/Week Comments Not Currently 0 (1 standard drink = 0.6 oz pur e alcohol) Sex and Gender Information Value Date Recorded Sex Assigned at Not on file Legal Sex Male 2:48 PM EDT Gender Identity Not on file Sexual Orientation Not on file Last Filed Vital Signs Vital Sign Reading Time Taken Comments Blood Pressure 122/80 05/02/2024 11:35 AM LOGISTICS SERVICE REPRESENTATIVE Pulse 68 05/02/2024 11:35 AM LOGISTICS SERVICE REPRESENTATIVE Temperature 36.3 C (97.4 F) 05/02/2024 11:35 AM LOGISTICS SERVICE REPRESENTATIVE Respiratory Rate 18 05/02/2024 11:35 AM LOGISTICS SERVICE REPRESENTATIVE Oxygen Saturation 98% 05/02/2024 11:35 AM LOGISTICS SERVICE REPRESENTATIVE Inhaled Oxygen Concentration - - Weight 108 kg (237 lb) 05/02/2024 11:35 AM LOGISTICS SERVICE REPRESENTATIVE Height 180.3 cm (5' 11 ) 08/10/2023 10:17 AM CDT Body Mass Index 33.05 08/10/2023 10:17 AM CDT Plan of Treatment Upcoming Encounters Date Type Department Care Team (Late st Contact Info) Description 10/10/2024 10:15 AM CDT Office Visit [place] [facility], [facility] [address] [facility] [address] [place] [phone] Beto Beckett MD [address] [facility] [address] [place] [address] Health Maintenance Due Date Last Done Comments Colorectal Cancer Screening: Annual FOBT 12/17/2003 Colorectal Cancer Screening: Colonoscopy 12/17/2003 Colorectal Cancer Screening: Sigmoidoscopy 12/17/2003 Pneumococcal Vaccine: 65+ Years (2 of 2 - PPSV23 or PCV20) 05/05/2018 03/10/2018 Diabetes: Ophthalmology Exam 01/29/2022 Diabetes: Pedal Pulse Checked 01/29/2022 Diabetes: Sensory Foot Exam 01/29/2022 Diabetes: Visual Foot Exam 01/29/2022 Influenza Vaccine (#1) 2023 01/23/2015 Diabetes: Hemoglobin A1C 07/26/2024 025, 08/04/2023, 04/08/2023, Additional history exists Hepatitis B Vaccine Aged Out No longe r eligible based on patient's age to complete this topic Procedures Procedure Name Priority Date/Time Associated Diagnosis Comments SPECIMEN STATUS REPORT Routine 11:24 AM LOGISTICS SERVICE REPRESENTATIVE PTH, INTACT Routine 04/27/2024 11:24 AM LOGISTICS SERVICE REPRESENTATIVE PHOSPHATE ( PHOSPHORUS) Routine 04/27/2024 11:24 AM LOGISTICS SERVICE REPRESENTATIVE HEMOGLOBIN A1C Routine 04/27/2024 11:24 AM LOGISTICS SERVICE REPRESENTATIVE PROTEIN / CREATININE RATIO, URINE Routine 04/27/2024 11:24 AM LOGISTICS SERVICE REPRESENTATIVE LIPID PANEL Routine 04/27/2024 11:24 AM LOGISTICS SERVICE REPRESENTATIVE REFLEXIVE URINE CULTURE (HC) Routine 04/27/2024 11:24 AM LOGISTICS SERVICE REPRESENTATIVE URINALYSIS, COMPLETE Routine 04/27/2024 11:24 AM LOGISTICS SERVICE REPRESENTATIVE COMPREHENSIVE METABOLIC PANEL Routine 04/27/2024 11:24 AM LOGISTICS SERVICE REPRESENTATIVE CBC DIFF AMBIGUOUS DEFAULT - DO NOT USE Routine 04/27/2024 11:24 AM LOGISTICS SERVICE REPRESENTATIVE MICROSCOPIC EXAMINATION - DO NOT USE Routine 04/27/2024 11:24 AM LOGISTICS SERVICE REPRESENTATIVE from Last 3 Months Results * Reflexive Urine Culture (04/27/2024 11:24 AM LOGISTICS SERVICE REPRESENTATIVE) Pathologist [facility] Culture Result, Urine Final [facility] Result Comment [facility] Comment: Culture shows less than 10,000 colony forming units of bacteria per milliliter of urine. This colony count is not generally considered to be clinically significant. 04/27/2024 11:2 4 AM LOGISTICS SERVICE REPRESENTATIVE 04/26/2024 11:00 PM LOGISTICS SERVICE REPRESENTATIVE us Beto Beckett MD LAB [id number] NSOLICITED RESULTS Final Result [facility] [address] [place] [address] * (ABNORMAL) Urinalysis, Complete w/reflex to Culture (04/27/2024 11:24 AM LOGISTICS SERVICE REPRESENTATIVE) Specific [place], Urine 1.019 1.005 - 1.030 [facility] [phone] pH Urine 6.0 5.0 - 7.5 [facility] [phone] Color, Urine Yellow Yellow [facility] Appearance Urine Clear Clear [facility] [place] WBC Esterase Urine Trace(A) Negative [facility] [phone] Protein, Ur Trace Negative/Tra ce [facility] Glucose, Ur Negative Negative [facility] [phone] Ketones, Urine Negative Negative [facility] [phone] Blood Urine Negative Negative [facility] [phone] Bilirubin Urine Negative Negative [facility] [place] [phone] Urobilinogen Urine 0.2 0.2 - 1.0 mg/dL [facility] Nitrite, Urine Negative Negative [facility] [place] [phone] Microscopic Examination See below: [facility] Comment:Microscopic was obey cated and was performed. URINALYSIS REFLEX Comment [facility] Comment:This specimen has re flexed to a Urine Culture. 04/27/2024 11:2 4 AM LOGISTICS SERVICE REPRESENTATIVE 04/26/2024 11:00 PM LOGISTICS SERVICE REPRESENTATIVE us Beto Beckett MD LAB URINE ORDERABLES Final R esult [facility] [address] [place] [address] * SPECIMEN STATUS REPORT (04/27/2024 11:24 AM LOGISTICS SERVICE REPRESENTATIVE) Specimen Status Comment [facility] Comment: Reinaldo Powellremarichuy CMP14 Default Reinaldo Powellremarichuy CMP14 Default A hand-written panel/profile was received from your office. In accordance with the [facility] Ambiguous Test Code Policy dated October 2002, we have completed your order by using the closest currently or formerly recognized AMA panel. We have assigned Comprehensive Metabolic Panel (14), Test Code #252952 to this request. If this is not the testing you wished to receive on this specimen, please contact the [facility] Client Inquiry/Technical Services Department to clarify the test order. We appreciate your business. Ambsiddharth Abbrev LP Default Reinaldo Abbrev LP Default A hand-written panel/profile was received from your office. In accordance with the [facility] Ambiguous Test Code Policy dated October 2002, we have completed your order by using the closest currently or formerly recognized AMA panel. We have assigned Lipid Panel, Test Code #746499 to this request. If this is not the testing you wished to receive on this specimen, please contact the [facility] Client Inquiry/Technical Services Department to clarify the test order. We appreciate your business. 04/27/2024 11:2 4 AM LOGISTICS SERVICE REPRESENTATIVE 04/26/2024 11:00 PM LOGISTICS SERVICE REPRESENTATIVE Beto Beckett MD LAB BLOOD ORDERABLES Final R esult Performing Organization Address City/[facility] Co de Phone Number [facility] Care Team Connect [address] [place] [address] * Microscopic Examination (04/27/2024 11:24 AM LOGISTICS SERVICE REPRESENTATIVE) WBC, Urine 0-5 0 - 5 /hpf [facility] RBC, Urine None seen 0 - 2 /hpf [facility] [place] Squamous Epithelial, Urine 0-10 0 - 10 /hpf [facility] [place] Casts None seen None seen /lpf [facility] [place] Bacteria, Urine None seen None seen/Few [facility] Care Team Connect 04/27/2024 11:2 4 AM LOGISTICS SERVICE REPRESENTATIVE 04/26/2024 11:00 PM LOGISTICS SERVICE REPRESENTATIVE us Beto Beckett MD LAB MICROBIOLOGY - GENERAL O RDERABLES Final Result [facility] [address] [place] [address] * (ABNORMAL) CBC Diff Ambiguous Default (04/27/2024 11:24 AM LOGISTICS SERVICE REPRESENTATIVE) WBC 5.7 3.4 - 10.8 x10E3/uL [facility] RBC 5.86(H) 4.14 - 5.80 x10E6/uL [facility] Hemoglobin 16.4 13.0 - 17.7 g/dL [facility] Hematocrit 52.8(H) 37.5 - 51.0 % [facility] MCV 90 79 - 97 fL [facility] MCH 28.0 26.6 - 33.0 pg [facility] MCHC 31.1(L) 31.5 - 35.7 g/dL [facility] RDW 14.5 11.6 - 15.4 % [facility] Platelets 281 150 - 450 x10E3/uL [facility] Neutrophils Relative 57 Not Estab. % [facility] Lymphocytes Relative 30 Not Estab. % [facility] Monocytes 9 Not Estab. % [facility] Eosinophils Relative 3 Not Estab. % [facility] Basophils Relative 1 Not Estab. % [facility] Neutrophils Absolute 3.2 1.4 - 7.0 x10E3/uL [facility] Lymphocytes Absolute 1.7 0.7 - 3.1 x10E3/uL [facility] Monocytes Absolute 0.5 0.1 - 0.9 x10E3/uL [facility] Eosinophils Absolute 0.2 0.0 - 0.4 x10E3/uL [facility] Basophils Absolute 0.1 0.0 - 0.2 x10E3/uL [facility] Immature Granulocytes 0 Not Estab. % [facility] Immature Grans (Absolute) 0.0 0.0 - 0.1 x10E3/uL [facility] [place] Comment: A hand-written panel/profile was received from your office. In accordance with the [facility] Ambiguous Test Code Policy dated October 2002, we have assigned CBC with Differential/Platelet, Test Code #948832 to this request. If this is not the testing you wished to receive on this specimen, please contact the [facility] Client Inquiry/ Technical Services Department to clarify the test order. We appreciate your business. 04/27/2024 11:2 4 AM LOGISTICS SERVICE REPRESENTATIVE 04/26/2024 11:00 PM LOGISTICS SERVICE REPRESENTATIVE Beto Beckett MD LAB BLOOD ORDERABLES Final R esult Performing Organization Address City/[facility] Co de Phone Number [facility] [address] [place] [address] * Protein, Total, Random Urine w/Creatinine (Protein/Creat Ratio) (04/27/2024 11:24 AM LOGISTICS SERVICE REPRESENTATIVE) Creatinine, Ur 189.4 Not Estab. mg/dL [facility] Protein, Ur 17.4 Not Estab. mg/dL [facility] Urine Protein/Creatin ine Ratio 92 0 - 200 mg/g creat [facility] 04/27/2024 11:2 4 AM LOGISTICS SERVICE REPRESENTATIVE 04/26/2024 11:00 PM LOGISTICS SERVICE REPRESENTATIVE Beto Beckett MD LAB URINE ORDERABLES Final R esult Performing Organization Address City/[facility] Co de Phone Number [facility] [address] [place] [address] * Phosphorus (04/27/2024 11:24 AM LOGISTICS SERVICE REPRESENTATIVE) Phosphorus 2.8 2.8 - 4.1 mg/dL [facility] 04/27/2024 11:2 4 AM LOGISTICS SERVICE REPRESENTATIVE 04/26/2024 11:00 PM LOGISTICS SERVICE REPRESENTATIVE Beto Beckett MD LAB BLOOD ORDERABLES Final R esult [facility] [place] [address] [place] [address] * (ABNORMAL) PTH, Intact (04/27/2024 11:24 AM LOGISTICS SERVICE REPRESENTATIVE) PTH 67(H) 15 - 65 pg/mL [facility] 04/27/2024 11:2 4 AM LOGISTICS SERVICE REPRESENTATIVE 04/26/2024 11:00 PM LOGISTICS SERVICE REPRESENTATIVE Beto Beckett MD LAB BLOOD ORDERABLES Final R esult Performing Organization Address City/[facility]/ZIP Co de Phone Number [facility] [address] [place] [address] * (ABNORMAL) Hemoglobin A1c (04/27/2024 11:24 AM LOGISTICS SERVICE REPRESENTATIVE) Hemoglobin A1C 7.0(H) 4.8 - 5.6 % [facility] Comment: Prediabetes: 5.7 - 6.4 Diabetes: >6.4 Glycemic control for adults with diabetes: <7.0 04/27/2024 11:2 4 AM LOGISTICS SERVICE REPRESENTATIVE 04/26/2024 11:00 PM LOGISTICS SERVICE REPRESENTATIVE Beto Beckett MD LAB BLOOD ORDERABLES Final R esult Performing Organization Address City/[facility]/ZIP Co de Phone Number [facility] [address] [place] [address] * (ABNORMAL) Lipid panel (04/27/2024 11:24 AM LOGISTICS SERVICE REPRESENTATIVE) Cholesterol 184 100 - 199 mg/dL [facility] Triglycerides 123 0 - 149 mg/dL [facility] HDL 52 >39 mg/dL [facility] VLDL Cholesterol Kev[place] 22 5 - 40 mg/dL [facility] LDL Calculated 110(H) 0 - 99 mg/dL [facility] 04/27/2024 11:2 4 AM LOGISTICS SERVICE REPRESENTATIVE 04/26/2024 11:00 PM LOGISTICS SERVICE REPRESENTATIVE Beto Beckett MD LAB BLOOD ORDERABLES Final R esult [facility] [address] [place] [address] * (ABNORMAL) Comprehensive Metabolic Panel (04/27/2024 11:24 AM LOGISTICS SERVICE REPRESENTATIVE) Glucose 104(H) 70 - 99 mg/dL [facility] BUN 21 8 - 27 mg/dL [facility] Creatinine 1.56(H) 0.76 - 1.27 mg/dL [facility] eGFR CKD-EPI CR 2020 48(L) >59 mL/min/1.7 3 [facility] BUN/Creatinine Ratio 13 10 - 24 [facility] Sodium 139 134 - 144 mmol/L [facility] Potassium 4.6 3.5 - 5.2 mmol/L [facility] Chloride 105 96 - 106 mmol/L [facility] Bicarbonate (CO2) 19(L) 20 - 29 mmol/L [facility] Calcium 9.9 8.6 - 10.2 mg/dL [facility] Total Protein 8.1 6.0 - 8.5 g/dL [facility] Albumin 4.7 3.9 - 4.9 g/dL [facility] Globulin 3.4 1.5 - 4.5 g/dL [facility] Total Bilirubin 0.6 0.0 - 1.2 mg/dL [facility] Alkaline Phosphatase 125(H) 44 - 121 IU/L [facility] AST (SGOT) 19 0 - 40 IU/L [facility] ALT (SGPT) 14 0 - 44 IU/L [facility] 04/27/2024 11:2 4 AM LOGISTICS SERVICE REPRESENTATIVE 04/26/2024 11:00 PM LOGISTICS SERVICE REPRESENTATIVE us Beto Beckett MD LAB BLOOD ORDERABLES Final R esult [facility] [address] [place] [address] from Last 3 Months Insurance [employer]
--- OUTSIDE RECORDS SUMMARY | 2024-06-23 14:02 | XMS_ITS | Encounter Summary ---
Author Organization [facility] [employer] Address [address] [place] [address] Care Team Providers Care Broomcorn Seeder Name Role Phone Jerome Pardo MD Primary Care Provider + Encounter Details Date Type Department Care Team (Late st Contact Info) Description 06/19/2024 Orders Only [facility] Oncology and Hematology - Bc [address] [facility] [address] [place] [address] Polycythemia, secondary Social History Tobacco Use Types Packs/Day Years Used Date Smoking Tobacco: Former Cigarettes 1 25 Smokeless Tobacco: Never Alcohol Use Standard Drinks/Week Comments Never 0 (1 standard drink = 0.6 oz pur e alcohol) Sex and Gender Information Value Date Recorded Sex Assigned at Not on file Legal Sex Male 10:56 AM CHILD ADOLESCENT CARE Gender Identity Not on file Sexual Orientation Not on file documented as of this encounter Plan of Treatment Upcoming Encounters Date Type Department Care Team (Late st Contact Info) Description 06/27/2024 11:15 AM CDT Office Visit [facility] Oncology and Hematology - [facility] [address] [place] [address] Asim Armendariz MD [address] [facility] [address] [place] [address] documented as of this encounter Visit Diagnoses Diagnosis Polycythemia, secondary documented in this encounter Care Teams Broomcorn Seeder Relationship Specialty Start Date End Date Jerome Pardo MD [address] [place] [phone] PCP - General Family Practice 05/06/23 documented as of this encounter
--- OUTSIDE RECORDS SUMMARY | 2024-06-23 14:02 | XMS_ITS | Clinical Summary ---
Author Organization [facility] Address [address], [facility] [address] [place] [address] Phone Care Team Providers Care Area Operations Manager Name Role Phone Jerome Pardo MD Primary Care Provider [phone] Krish Donaldson DPM Unavailable [phone] Allergies No known active allergies Medications pravastatin (PRAVACHOL) 20 MG Tablet Take 20 mg by mouth every morning. Active RELION PEN NEEDLES 32G X 4 MM [facility] 6 Active triamterene-hydr ochlorothiazide (DYAZIDE) 37.5-25 MG Capsule every morning. 6 Active amLODIPine (NORVASC) 10 MG Tablet every morning. 9 Active glipiZIDE (GLUCOTROL) 10 MG Tablet every morning. 9 Active PRODIGY NO CODING BLOOD GLUC Strip 9 Active PRODIGY TWIST TOP LANCETS 28G [facility] 9 Active JANUVIA 100 MG Tablet every morning. 5 9 Active Blood Glucose Monitoring Suppl (ONE TOUCH ULTRA 2) w/Device Kit Use, as directed, once daily to test blood sugar 0 Active Blood Glucose Calibration (OT ULTRA/FASTTK CNTRL SOLN) Solution USE TO CONFIRM ACCURACY OF GLUCOSE METER 0 Active Alcohol Swabs (ALCOHOL PADS) 70 % Pads Use, as directed, once daily to test blood sugar 0 Active Active Problems Problem Noted Date Diagnosed Date TESSIE (obstructive sleep apnea) 10/02/2019 Tobacco use disorder 10/02/2019 Essential (primary) hypertension 10/02/2019 Diabetic polyneuropathy asso ciated with type 2 diabetes mellitus 04/09/2015 Corns Dermatophytosis, nails Immunizations Immunization Administration Dates Next Due Covid-19, Mrna, Lnp-s, PF, 1 00 mcg/0.5 mL Dose (Moderna) 08/01/2020,07/04/2020 Family History Medical History Relation Name Comments Lung Cancer Brother Cancer Father Diabetes Father Cancer Mother Diabetes Mother Hypertension Mother Relation Name Status Comments Brother Father Mother Social History Tobacco Use Types Packs/Day Years Used Date Smoking Tobacco: Every Day Cigarettes 1 20 Smokeless Tobacco: Never Tobacco Cessation:Ready to Q uit: Yes Alcohol Use Standard Drinks/Week Comments No 0 (1 standard drink = 0.6 oz pur e alcohol) Sex and Gender Information Value Date Recorded Sex Assigned at Not on file Legal Sex Male 12:26 AM CDT Gender Identity Not on file Sexual Orientation Not on file Last Filed Vital Signs Vital Sign Reading Time Taken Comments Blood Pressure 158/94 09/20/2019 6:30 AM CDT Pulse 84 09/20/2019 6:30 AM CDT Temperature 36 C (96.8 F) 09/20/2019 6:30 AM CDT Respiratory Rate 19 09/20/2019 6:30 AM CDT Oxygen Saturation 99% 09/20/2019 6:30 AM CDT Inhaled Oxygen Concentration - - Weight 95.3 kg (210 lb) 09/13/2019 1:00 PM CDT Height 180.3 cm (5' 11 ) 09/13/2019 1:00 PM CDT Body Mass Index 29.29 09/13/2019 1:00 PM CDT Plan of Treatment Health Maintenance Due Date Last Done Comments Diabetes: Eye Exam 1954 Diabetes: Foot Exam 1955 Hepatitis C Virus (HCV) Screening 1955 TdaP Immunization 1954 Diabetes: Nephropathy Screening 1972 Cologuard 2004 Immunochemical Fecal Occult Blood 2004 Zoster Immunization (1 of 2) 2004 PSA Discussion 2009 Respiratory Syncytial Virus (RSV) Immunization (Adult) (1 - Risk 60-74 years 1-dose series) 2014 Colonoscopy 09/19/2022 09/20/2019, 01/06/2016, 02/18/2015 Colorectal Cancer Screening 09/19/2022 Pneumococcal Immunization (5 0+ years) (3 of 3 - PCV20 or PCV21) 03/10/2023 03/10/2018, 04/14/2013 Influenza Immunization (#1) 2023 01/23/2015 SARS-COV-2 Immunization ( season) 2023 03/27/2021, 08/01/2020, 07/04/2020 Diabetes: Hemoglobin A1c 10/25/2024 025, 08/04/2023, 12/04/2022 09/20/2019, 01/06/2016, 02/18/2015 Pneumococcal Immunization Combined Discontinued 03/10/2018, 04/14/2013 Hepatitis B Immunization Aged Out No longer eligible based on patient's age to complete this topic Meningococcal Immunization (ACWY) Aged Out No longer eligible based on patient's age to complete this topic Rotavirus Immunization Aged Out No lo nger eligible based on patient's age to complete this topic Insurance MEDICARE C [facility] MEDICARE Care Teams Area Operations Manager Relationship Specialty Start Date End Date Jerome Pardo MD [address] [place] [address] [address] [place] [address] PCP - General Family Medicine 02/18/15 Krish Donaldson DPM [address] [place] [address] [place] [address] Podiatry 01/07/16
--- OUTSIDE RECORDS SUMMARY | 2024-06-23 14:03 | XMS_ITS ---
Author Organization [facility] Address [address] [place], [place] [id number] Care Team Providers Care State Tested Nursing Assistant Name Role Phone ESCOBAREddie TIMOTEO Unavailable [phone] Jerome Pardo Unavailable Unavailable REASON FOR VISIT Patient presents for at-risk foot care . The patient has painful toenails and calluses that are causing difficulty with ambulation and shoegear. The onset is gradual. The patient has diabetes mellitus Medications Medication SIG (Take, Route, Frequency, Duration) Notes Start Date End Date Status isopropyl alcohol 0.7 ML/ML Medicated Pad isopropyl alcohol 0.7 ML/ML Medicated PadOriginal Medicationisopropyl alcohol 0.7 ML/ML Medicated Pad *Reorder from [employer] for eRx and Interaction Alerts* 10/27/2021 12/20/2045 Active Encounters Encounter Location Date Provider Diagnosis [facility] [address] [place], [place] [id number] 10/25/2023 TIMOTEO BARRAZA Tinea unguium B35.1 ; Acquired keratosis [keratoderma] palmaris et plantaris L85.1 ; Atherosclerosis of [place] arteries of extremities with intermittent claudication, bilateral legs I70.213 ; Type 2 diabetes mellitus with other circulatory complications E11.59 ; Pain in right toe(s) M79.674 and Pain in left toe(s) M79.675 Assessments Encounter Date Diagnosis (ICD Code) Assessment Notes Treatment Notes Treatment Clinical Notes Section Notes 10/25/2023 Tinea unguium (ICD-10 - B35.1) Nails 1-5 Bilateral were debrided extensively with nail nippers and emery board, reducing length and girth to pink healthy tissue with any subungual debris and necrotic tissue removed 10/25/2023 Acquired keratosis [keratoderma] palmaris et plantaris (ICD-10 - L85.1) A total of 3 corns or calluses, as described in the note above, were cut and pared utilizing a #15 blade 10/25/2023 Atherosclerosis of [place] arteries of extremities with intermittent claudication, bilateral legs (ICD-10 - I70.213) 10/25/2023 Type 2 diabetes mellitus with other circulatory complications (ICD-10 - E11.59) 10/25/2023 Pain in right toe(s) (ICD-10 - M79.674) 10/25/2023 Pain in left toe(s) (ICD-10 - M79.675) Plan Of Treatment Treatment Notes Assessment Notes [...] Name:TIMOTEO BARRAZA, 10:30:00 AM, [address], [address], [phone], Progress Notes * ECTOR VÁZQUEZOB:1955 ([age] yo M)Acc No.[id number]:10/25/2023 Patient: PATRICK KIRBY Provider: Sundeep Barraza DPM :1955 A ge:67 Y S ex:Male Date:10/25/2023 [address] [id number] Subjective: * Chief Complaints: * P atient presents for at-risk foot care . The patient has painful toenails and calluses that are causing difficulty with ambulation and shoegear. The onset is gradual. The patient has diabetes mellitus * HPI: H PI: General care P atient presents to the office for diabetic foot care. Patient states that their nails are thickened, elongated and painful. Patient states that it is aggravated by shoe gear. Onset is gradual., Patient is taking prescription blood thinners., Date last seen by Dr. Pardo was 08/2023., Initials mca. * ROS: G eneral / Constitutional: Patient denies c hange in appetite, fatigue, chills, fever, night sweats. M usculoskeletal: Patient complains of a rthritis. P eripheral Vascular: Patient denies u lceration of feet. S kin: Patient complains of f ungal nails, dry skin. ? * Medical History: * Surgical History: * Hospitalization/Major Diagno stic Procedure: * Social History: M igrated Social History: M igrated Social History: History of tobacco use : Current everyday tobacco user , Smoking Status : Current everyday tobacco user. * Medications: T akingisopropyl alcohol 0.7 ML/ML Medicated Pad , stop date 12/20/2045, Notes to Pharmacist: isopropyl alcohol 0.7 ML/ML Medicated PadOriginal Medicationisopropyl alcohol 0.7 ML/ML Medicated Pad *[facility] from [facility] for eRx and Interaction Alerts*Taking isopropyl alcohol 0.7 ML/ML Medicated Pad , stop date 12/20/2045, Notes to Pharmacist: isopropyl alcohol 0.7 ML/ML Medicated PadOriginal Medicationisopropyl alcohol 0.7 ML/ML Medicated Pad *Reorder from [facility] for eRx and Interaction Alerts* Objective: * Vitals: * Examination: P hysical Examination: General appearance: A lert, pleasant, well-nourished and in no acute distress. D ermatologic: Skin findings: S kin is thin, atrophic and lacking pedal hair.. Hypertrophic / hyperkeratotic lesion: r ight: plantar aspect of the 5th metatarsal head and heel. left: plantar aspect of the 5th metatasal head. Nail pathology: N ails 1-5 bilateral are elongated, thick, discolored, and dystrophic with subungual debris. They are painful to palpation. ? V ascular: Dorsalis pedis pulse: 0 /4, bilateral. Posterior tibial pulse: 1 /4, bilaterally. Capillary refill: g reater than 3 seconds. Edema: N o edema bilateral. N eurologic: Gross sensation G rossly intact to light touch. There is negative Tinel's sign. M usculoskeletal: Muscle Strength M uscle strength is 5/5 in regards to dorsiflexion, plantarflexion, inversion, and eversion in bilateral lower extremities. ? Assessment: * Assessment: 1. T inea unguium - B35.1 (Primary) 2 . 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 A therosclerosis of [place] arteries of extremities with intermittent claudication, bilateral legs - I70.213 4 . T ype 2 diabetes mellitus with other circulatory complications - E11.59 5 . P ain in right toe(s) - M79.674 6 . P ain in left toe(s) - M79.675 Plan: * Treatment: 2. A cquired keratosis [keratoderma] palmaris et plantaris Notes: A total of 3 corns or calluses, as described in the note above, were cut and pared utilizing a #15 blade * Procedure Codes: * Follow Up: 1 0 - 12 weeks (Reason: At-Risk Foot care, sooner if problems develop.) * Billing Information: * Visit Code: 25172 Office Visit, Est Pt., Level 3. * Procedure Codes: * MAN OR SUPERVISOR AND OPERATOR Sign off status: Completed true * Provider: Sundeep Barraza DPM Date: 0 10/25/2023 Generated for Mitchell tucker/Raj/Gregorioitting on: 0 06/23/2024 02:03 PM CDT History and Physical Notes * [...] Date last seen by Dr. Pardo was 08/2023., Initials mca Examination Category Sub-Category Detail Notes Category Not es Dermatologic Skin findings: Skin is thin, at rophic and lacking pedal hair. Nail pathology: Nails 1-5 bilateral are elongated, thick, discolored, and dystrophic with subungual debris. They are painful to palpation Hypertrophic / hyperkeratotic lesion: ri ght: plantar aspect of the 5th metatarsal head and heel. left: plantar aspect of the 5th metatasal head Neurologic Gross sensation Grossly intact t o light touch. There is negative Tinel's sign Vascular Dorsalis pedis pulse: 0/4, bilateral Edema: No edema bilateral Capillary refill: greater than 3 secon ds Posterior tibial pulse: 1/4, bilaterally Physical Examination General appearance: Alert, pleasant, well-nourished and in no acute distress Musculoskeletal Muscle Strength Muscle strength is 5/5 in regards to dorsiflexion, plantarflexion, inversion, and eversion in bilateral lower extremities
--- OUTSIDE RECORDS SUMMARY | 2024-06-23 14:03 | XMS_ITS ---
Author Organization [facility] Address [address] [place], [place] [id number] Care Team Providers Care Inside Sales Executive Name Role Phone MADI TIMOTEO Unavailable [phone] Jerome Pardo Unavailable Unavailable REASON FOR VISIT [...] alcohol 0.7 ML/ML Medicated Pad *Reorder from [employer] for eRx and Interaction Alerts* 10/27/2021 12/20/2045 Active Encounters Encounter Location Date Provider Diagnosis [facility] [address] [place], [place] [phone] 04/24/2024 TIMOTEO BARRAZA Tinea unguium B35.1 ; Acquired keratosis [keratoderma] palmaris et plantaris L85.1 ; Atherosclerosis of [place] arteries of extremities with intermittent claudication, bilateral legs I70.213 ; Pain in right foot M79.671 and Pain in left foot M79.672 Assessments Encounter Date Diagnosis (ICD Code) Assessment Notes Treatment Notes Treatment Clinical Notes Section Notes 04/24/2024 Tinea unguium (ICD-10 - B35.1) Nails 1-5 Bilateral were debrided extensively with nail nippers and emery board, reducing length and girth to pink healthy tissue with any subungual debris and necrotic tissue removed 04/24/2024 Acquired keratosis [keratoderma] palmaris et plantaris (ICD-10 - L85.1) A total of 3 corns or calluses, as described in the note above, were cut and pared utilizing a #15 blade 04/24/2024 Atherosclerosis of [place] arteries of extremities with intermittent claudication, bilateral legs (ICD-10 - I70.213) 04/24/2024 Pain in right foot (ICD-10 - M79.671) 04/24/2024 Pain in left foot (ICD-10 - M79.672) [...] Name:TIMOTEO BARRAZA, 10:30:00 AM, [address], [address], [phone], Progress Notes * GURPREET CARTERZOOB:1955 ([age] yo M)Acc No.[id number]:04/24/2024 Patient: PATRICK KIRBY Provider: Sundeep Barraza DPM :1955 A ge:68 Y S ex:Male Date:04/24/2024 Address:[address] [facility] [address], [id number] Subjective: * Chief Complaints: * Keshav larry [...] Date last seen by Dr. Pardo was 03/2024., Initials mca. * ROS: G eneral / [...] alcohol 0.7 ML/ML Medicated Pad *[facility]s*Medication List reviewed and reconciled with the patientTaking isopropyl alcohol 0.7 ML/ML Medicated Pad , stop date 12/20/2045, Notes to Pharmacist: isopropyl alcohol 0.7 ML/ML Medicated PadOriginal Medicationisopropyl alcohol 0.7 ML/ML Medicated Pad *[facility] and Interaction [facility]s*Medication List [...] - L85.1 3 . A therosclerosis of [place] arteries of extremities with intermittent claudication, bilateral [...] develop.) * Billing Information: * Visit Code: 01254 Office Visit, Est Pt., Level 3. * Procedure Codes: * AGE BROKER DEVELOPER Sign off status: Completed true * Provider: Sundeep Barraza DPM Date: 0 04/24/2024 Generated for Mitchell tucker/Raj/Radha on: 0 06/23/2024 02:03 PM CDT History [...] Date last seen by Dr. Pardo was 03/2024., Initials mca Examination Category Sub-Category Detail Notes [...]
--- OUTSIDE RECORDS SUMMARY | 2024-06-23 14:03 | XMS_ITS | Patient Health Record ---
Author Organization [facility] Address [address] [place], [place] [phone] Care Team Providers Care Machine Filler Name Role Phone TIMOTEO BARRAZA Unavailable [phone] Jerome Pardo Unavailable Unavailable Allergies No Known Allergies Reason For Referral No Information Medications Medication SIG (Take, Route, Frequency, Duration) Notes Start Date End Date Status isopropyl alcohol 0.7 ML/ML Medicated Pad isopropyl alcohol 0.7 ML/ML Medicated PadOriginal Medicationisopropyl alcohol 0.7 ML/ML Medicated Pad *Reorder from [employer] for eRx and Interaction Alerts* 10/27/2021 12/20/2045 Active Vital Signs Height-cm 180.34 cm 08/02/2023 Weight-kg 94.35 kg 08/02/2023 Height 71.00 in 08/02/2023 Weight 208 lbs 08/02/2023 BMI 29.01 kg/m2 08/02/2023 Encounters Encounter Location Date Provider Diagnosis [facility] [address] [place] [id number] 08/02/2023 TIMOTEO BARRAZA Tinea unguium B35.1 ; Acquired keratosis [keratoderma] palmaris et plantaris L85.1 ; Atherosclerosis of [place] arteries of extremities with intermittent claudication, bilateral legs I70.213 ; Type 2 diabetes mellitus with other circulatory complications E11.59 ; Pain in right toe(s) M79.674 and Pain in left toe(s) M79.675 [facility] [address] [place], [place] [id number] 10/25/2023 TIMOTEO SNOOK Tinea unguium B35.1 ; Acquired keratosis [keratoderma] palmaris et plantaris L85.1 ; Atherosclerosis of [place] arteries of extremities with intermittent claudication, bilateral legs I70.213 ; Type 2 diabetes mellitus with other circulatory complications E11.59 ; Pain in right toe(s) M79.674 and Pain in left toe(s) M79.675 [facility] [place] [address] [place] [id number] 01/24/2024 TIMOTEO SNOOK Tinea unguium B35.1 ; Acquired keratosis [keratoderma] palmaris et plantaris L85.1 ; Atherosclerosis of [place] arteries of extremities with intermittent claudication, bilateral legs I70.213 ; Pain in right foot M79.671 and Pain in left foot M79.672 [facility] [address] [place] [id number] 04/24/2024 TIMOTEO SNOOK Tinea unguium B35.1 ; Acquired keratosis [keratoderma] palmaris et plantaris L85.1 ; Atherosclerosis of [place] arteries of extremities with intermittent claudication, bilateral legs I70.213 ; Pain in right foot M79.671 and Pain in left foot M79.672 Assessments Encounter Date Diagnosis (ICD Code) Assessment Notes Treatment Notes Treatment Clinical Notes Section Notes 08/02/2023 Tinea unguium (ICD-10 - B35.1) Nails 1-5 Bilateral were debrided extensively with nail nippers and emery board, reducing length and girth to pink healthy tissue with any subungual debris and necrotic tissue removed 08/02/2023 Acquired keratosis [keratoderma] palmaris et plantaris (ICD-10 - L85.1) A total of 3 corns or calluses, as described in the note above, were cut and pared utilizing a #15 blade 10/25/2023 Tinea unguium (ICD-10 - B35.1) Nails [...] and pared utilizing a #15 blade 01/24/2024 Tinea unguium (ICD-10 - B35.1) Nails [...] and pared utilizing a #15 blade 04/24/2024 Tinea unguium (ICD-10 - B35.1) Nails [...] utilizing a #15 blade 04/24/2024 Atherosclerosis of [place] arteries of extremities with intermittent claudication, bilateral legs (ICD-10 - I70.213) 01/24/2024 Atherosclerosis of [place] arteries of extremities with intermittent claudication, bilateral legs (ICD-10 - I70.213) 08/02/2023 Atherosclerosis of [place] arteries of extremities with intermittent claudication, bilateral legs (ICD-10 - I70.213) 10/25/2023 Atherosclerosis of [place] arteries of extremities with intermittent claudication, bilateral legs (ICD-10 - I70.213) 08/02/2023 Type 2 diabetes mellitus with other circulatory complications (ICD-10 - E11.59) 10/25/2023 Type 2 diabetes mellitus with other circulatory complications (ICD-10 - E11.59) 01/24/2024 Pain in right foot (ICD-10 - M79.671) 04/24/2024 Pain in right foot (ICD-10 - M79.671) 04/24/2024 Pain in left foot (ICD-10 - M79.672) 01/24/2024 Pain in left foot (ICD-10 - M79.672) 10/25/2023 Pain in right toe(s) (ICD-10 - M79.674) 08/02/2023 Pain in right toe(s) (ICD-10 - M79.674) 08/02/2023 Pain in left toe(s) (ICD-10 - M79.675) 10/25/2023 Pain in left toe(s) (ICD-10 - M79.675) Plan Of Treatment Next Appt Details Provider Name:TIMOTEO BARRAZA, 10:30:00 AM, [address], [place], [place], [phone], Insurance Providers Payer Name Payer Address Payer Phone Subscriber Number Group Number Insured Name Patient Relationship to Insured Coverage Start Date Coverage End Date [facility] [address] [place] [id number] PATRICK VÁZQUEZ Self - patient is the insured
--- NOTE | 2024-06-23 14:43 | ECG_ITS ---
Test Date: 2024-06-23 15:50:57 Measurements Intervals [place] Rate: 85 P: 58 TX: 197 QRS: -8 QRSD: 94 T: 37 QT: 347 QTc: 414 Interpretive Statements SINUS RHYTHM NONSPECIFIC ST AND T-WAVE ABNORMALITY No previous ECG available for comparison Electronically Signed On 06-23-2024 18:40:26 CDT by Jarvis Bhat M.D.
--- NOTE | 2024-06-23 14:52 | PC.NURSE ---
pt went to bathroom prior to coming to room.
[2024-06-23 15:00] LABS: Basophils Absolute Auto 0.1 K/mm3 (0.0-0.1); Basophils Percent Auto 1.1 % (0.2-1.2); Eosinophils Absolute Auto 0.1 K/mm3 (0-0.3); Eosinophils Percent Auto 1.8 % (0-4.4); Hematocrit 50.2 % (42.0-52.0); Hemoglobin 15.9 g/dL (14.0-18.0); Immature Granulocyte Absolute 0.01 K/mm3 (0.00-0.031); Immature Granulocyte Percent A 0.2 % (0-0.5); Lymphocytes Absolute Auto 1.26 K/mm3 (0.9-3.2); Lymphocytes Percent Auto 27.9 % (18.3-44.2); Mean Corpuscular HGB Conc 31.7 g/dl (32-36); Mean Corpuscular Hemoglobin 28.3 pg (26-34); Mean Corpuscular Volume 89.5 fl (80-100); Mean Platelet Volume 9.6 fl (7.4-10.4); Monocytes Absolute Auto 0.4 K/mm3 (0.1-0.6); Monocytes Percent Auto 8.8 % (2.6-8.5); Neutrophils Absolute Auto 2.7 K/mm3 (1.3-6.7); Neutrophils Percent Auto 60.2 % (45.5-73.1); Platelet Count Result 204 k/mm3 (150-375); Red Blood Count 5.61 M/mm3 (4.6-6.20); Red Cell Distribution Width 15.8 % (11.5-14.5); White Blood Count 4.5 K/mm3 (4.5-10.0)
[2024-06-23 15:18] LABS: Alanine Aminotransferase 21 U/L (6-50); Albumin Level 4.5 g/dL (3.5-5.1); Alkaline Phosphatase 107 U/L (38-126); Anion Gap 11 mmol/L (4-12); Aspartate Amino Transferase 30 U/L (17-59); Blood Urea Nitrogen 21 mg/dL (9-20); Calcium 9.6 mg/dL (8.4-10.2); Carbon Dioxide 21 mmol/L (22-30); Chloride 106 mmol/L (98-107); Estimated CRCL calculation 48 ml/min; Estimated Glomerular Filt Rate 43; Glucose 100 mg/dL (65-110); Potassium 4.3 mmol/L (3.4-5.0); Sodium 138 mmol/L (137-145)
[2024-06-23 16:54] LABS: Add Urine Microscopic? YES; Appearance Urine Clear (Clear); Bacteria Urine 2+ /hpf; Bilirubin Urine Negative (Negative); Blood Urine Negative (Negative); Color Urine Yellow (Yellow); Glucose Urine UA Negative (Negative); Ketones Urine Negative (Negative); Leukocyte Esterase Ur 1+ LEU/UL (Negative); Nitrate Urine Negative (Negative); Non Pathogenic Casts 0-2; Protein Urine Negative (Negative); RBC Urine 0-2 /hpf (0-2); Squamous Epithelial Cell Urine None Seen /hpf (Few); Urobilinogen Urine 0.2 mg/dL (<2.0); pH Urine 6.5 (5.0-9.0)
--- NOTE | 2024-06-23 17:05 | ED_ITS ---
HPI - Dizziness General Chief Complaint: Dizziness Stated Complaint: Dizziness, weakness--sent from Time Seen by Provider: 06/23/24 17:00 History of Present Illness HPI Narrative: Patient presents today complaining dizziness since 4:00 a.m. today. Describes the dizziness as room spinning. He has almost fallen several times due to the dizziness. He is also complaining of weakness. Denies any additional symptoms today to include headache, nausea vomiting, chest pain, shortness of breath, vision changes, heart racing or palpitations. He does report some numbness and tingling in his bilateral hands, but is being evaluated for carpal tunnel. He is diabetic on insulin, with a history of hypertension on several medications. States he has not eaten today but checked his blood sugar this morning was 103. Related Data Home Medications ?Medication ?Instructions ?Recorded ?Confirmed ?Last Taken ?Type glipizide 10 mg tablet 10 mg PO BID 06/01/20 06/23/24 06/02/21 History pravastatin 20 mg tablet 20 mg PO DAILY 06/01/20 06/23/24 06/02/21 History triamterene 37.5 1 cap PO DAILY 06/01/20 06/23/24 06/02/21 History mg-hydrochlorothiazide 25 mg capsule clopidogrel 75 mg tablet (Plavix) 75 mg PO DAILY 04/28/21 06/23/24 05/29/21 History ergocalciferol (vitamin D2) 1,000 1,250 mcg PO WEEKLY 04/28/21 06/23/24 06/02/21 History unit capsule lisinopril 5 mg tablet 5 mg PO DAILY 04/28/21 06/23/24 06/02/21 History famotidine 40 mg tablet 40 mg PO DAILY 01/17/24 06/23/24 Unknown History insulin detemir U-100 100 unit/mL 18 unit subcut DAILY 01/17/24 06/23/24 Unknown History (3 mL) subcutaneous pen (Levemir FlexPen) nifedipine 30 mg tablet,extended 30 mg PO DAILY 01/17/24 06/23/24 Unknown History release 24 hr tamsulosin 0.4 mg capsule 0.4 mg PO DAILY 01/17/24 06/23/24 Unknown History Allergies Allergy/AdvReac Type Severity Reaction Status Date / Time No Known Allergies Allergy Mild Verified 06/23/24 13:01 Review of Systems 2 Review of Systems: All systems reviewed & are unremarkable except as noted in HPI and below PMFSH Past Medical History Medical History Diabetes Hypertension Hyperlipidemia 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 HEAD: Normocephalic, atraumatic. NECK: Supple. No adenopathy, no masses. RESPIRATORY: Airway patent, respirations nonlabored. Clear to auscultation bilaterally, no rales, rhonchi, wheezing. CARDIOVASCULAR: Regular rate and rhythm without murmurs, rubs, or gallops. Peripheral pulses 2+ and equal bilaterally. ABDOMINAL: Soft, nontender, nondistended, no hepatosplenomegaly. Normoactive BS. MUSCULOSKELETAL: Moves all extremities. Strength/ROM intact without gross deformities. SKIN: Warm, dry, normal color. No rashes. NEURO: A&O X3. Speech clear. Cranial nerves II-XII intact. No ataxic movements. PSYCHIATRIC: Appropriate mood and affect. Normal interaction. Course Vital Signs Vital signs: Vital Signs Temperature 36.8 C 06/23/24 13:42 Pulse Rate 81 06/23/24 13:42 Respiratory Rate 16 06/23/24 13:42 Blood Pressure 170/84 H 06/23/24 13:42 Pulse Oximetry 97 06/23/24 13:42 Temperature 36.8 C 06/23/24 13:42 Pulse Rate 90 06/23/24 18:46 Respiratory Rate 19 06/23/24 18:46 Blood Pressure 162/96 H 06/23/24 18:46 Pulse Oximetry 98 06/23/24 18:46 MDM - Dizziness MDM Narrative Medical decision making narrative: Patient presents today complaining dizziness since 4:00 a.m. today. Describes the dizziness as room spinning. He has almost fallen several times due to the dizziness. He is also complaining of weakness. Denies any additional symptoms today to include headache, nausea vomiting, chest pain, shortness of breath, vision changes, heart racing or palpitations. He does report some numbness and tingling in his bilateral hands, but is being evaluated for carpal tunnel. He is diabetic on insulin, with a history of hypertension on several medications. States he has not eaten today but checked his blood sugar this morning was 103. Labs Ordered: CBC, CMP, UA Imaging Ordered: Brain CT scan, chest x-ray Medications Ordered: Aleve PO 220mg Results: Pt's CT brain The ventricles are normal in size, shape and position. Cavum septum pellucidum is incidentally noted. Basal ganglia calcifications are also present. There is no mass, mass effect or midline shift. There is no abnormal extra- axial fluid collection or intracranial hemorrhage. Mucoperiosteal thickening within the left sphenoid sinus. The mastoid air cells are well aerated. No acute displaced fractures within the overlying cranium. Diagnosis: Vertigo, carpal tunnel syndrome Patient Education/Shared MDM: Results of lab work and imaging shared with patient. He endorses improvement following medication administration. Patient strongly advised to maintain hydration status upon discharge and follow-up with his PCP as soon as possible. He reports his primary care provider has given braces on both his right and left arms to help treat carpal tunnel, but they do not work. Patient advised to follow-up with his primary care provider regarding further treatment of this issue. He will be discharged home with a prescription for Meclizine. Strict return precautions provided. Patient verbalized understanding is in agreement with plan. Vital signs stable at time of discharge. All questions answered. Differential Diagnosis Differential diagnosis: Likely benign paroxysmal positional vertigo, orthostatic hypotension and cerebrovascular accident Lab Data Attestation: I reviewed the patient's lab results. 06/23/24 14:55 06/23/24 14:55 Labs: Lab Results 06/23/24 06/23/24 Range/Units 14:55 16:33 WBC 4.5 (4.5-10.0) K/mm3 RBC 5.61 (4.6-6.20) M/mm3 Hgb 15.9 (14.0-18.0) g/dL Hct 50.2 (42.0-52.0) % MCV 89.5 (80-100) fl MCH 28.3 (26-34) pg MCHC 31.7 L (32-36) g/dl RDW 15.8 H (11.5-14.5) % Plt Count 204 (150-375) k/mm3 MPV 9.6 (7.4-10.4) fl Immature Gran % (Auto) 0.2 (0-0.5) % Neut % (Auto) 60.2 (45.5-73.1) % Lymph % (Auto) 27.9 (18.3-44.2) % Davison % (Auto) 8.8 H (2.6-8.5) % Eos % (Auto) 1.8 (0-4.4) % Baso % (Auto) 1.1 (0.2-1.2) % Lymph # (Auto) 1.26 (0.9-3.2) K/mm3 Davison # (Auto) 0.4 (0.1-0.6) K/mm3 Eos # (Auto) 0.1 (0-0.3) K/mm3 Baso # (Auto) 0.1 (0.0-0.1) K/mm3 Abs Immat Gran (auto) 0.01 (0.00-0.031) K/mm3 Absolute Neuts (auto) 2.7 (1.3-6.7) K/mm3 Absolute Nucleated RBC 0.000 (0.0-0.012) K/mm3 Nucleated RBC % 0.0 (0.0-0.2) % Sodium 138 (137-145) mmol/L Potassium 4.3 (3.4-5.0) mmol/L Chloride 106 (98-107) mmol/L Carbon Dioxide 21 L (22-30) mmol/L Anion Gap 11 (4-12) mmol/L BUN 21 H (9-20) mg/dL Creatinine 1.59 H (0.7-1.3) mg/dL Estim Creat Clear Calc 48 ml/min Estimated GFR 43 L (59 - ) Glucose 100 (65-110) mg/dL Calcium 9.6 (8.4-10.2) mg/dL Total Bilirubin 1.0 (0.2-1.3) mg/dL AST 30 (17-59) U/L ALT 21 (6-50) U/L Alkaline Phosphatase 107 (38-126) U/L Total Protein 8.0 (6.3-8.2) g/dL Albumin 4.5 (3.5-5.1) g/dL Urine Color Yellow (Yellow) Urine Appearance Clear (Clear) Urine pH 6.5 (5.0-9.0) Ur Specific [place] 1.010 (1.001-1.035) Urine Protein Negative (Negative) mg/dL Urine Glucose (UA) Negative (Negative) mg/dL Urine Ketones Negative (Negative) mg/dL Ur Blood (Man) Negative (Negative) Urine Nitrate Negative (Negative) Urine Bilirubin Negative (Negative) Urine Urobilinogen 0.2 (<2.0) mg/dL Leukocyte Esterase Rfl 1+ H (Negative) JOSH/UL Urine RBC 0-2 (0-2) /hpf Urine WBC 6-10 H (0-3) /hpf Ur Squamous Epith Cells None seen (Few) /hpf Urine Bacteria 2+ H /hpf Urine Casts 0-2 Imaging Data Attestation: I personally reviewed and interpreted this imaging study as follows: Radiologist's impression: Impressions Chest X-Ray 06/23/24 15:36 IMPRESSION: No acute cardiopulmonary pathology. Head CT 06/23/24 18:12 Impression: No acute intracranial hemorrhage or suspicious mass effect. Inflammatory sinus disease Discharge Plan Discharge Clinical Impression: Dizziness, Benign paroxysmal positional vertigo Patient Disposition: Home, Self-Care Condition: Stable Instructions: Antibiotic Form, Benign Paroxysmal Positional Vertigo (ED) Additional Instructions: Please return to the ER with any worsening symptoms. Follow-up with primary care provider as soon as possible. Take all medications as prescribed, including regularly scheduled medications. Patient Language: Bulgarian Prescriptions: New meclizine 12.5 mg tablet 12.5 mg PO TID PRN (Reason: dizziness) Qty: 20 0RF No Action nifedipine 30 mg tablet extended release 24hr 30 mg PO DAILY famotidine 40 mg tablet 40 mg PO DAILY tamsulosin 0.4 mg capsule 0.4 mg PO DAILY Levemir FlexPen 100 unit/mL (3 mL) insulin pen 18 unit SUBCUT DAILY glipizide 10 mg tablet 10 mg PO BID triamterene-hydrochlorothiazid 37.5-25 mg capsule 1 cap PO DAILY pravastatin 20 mg tablet 20 mg PO DAILY clopidogrel [Plavix] 75 mg Tablet 75 mg PO DAILY lisinopril 5 mg Tablet 5 mg PO DAILY Vitamin D2 1,000 unit Capsule 1,250 mcg PO WEEKLY Rx Instructions: on Saturdays pantoprazole 40 mg tablet,delayed release (DR/EC) 40 mg PO QAM 28 Days Qty: 30 6RF Follow-up/Referrals: Edvin,Jerome Palacio MD [Primary Care Provider] - Time of Disposition: 20:04
--- OUTSIDE RECORDS SUMMARY | 2024-06-23 17:32 | XMS_ITS | Clinical Summary ---
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 Orders Only [facility] Oncology and Hematology - [facility] [address] [place] [address] Polycythemia, secondary 05/22/2024 Orders Only [facility] Oncology and Hematology - [facility] [address] [place] [address] Polycythemia, secondary 05/08/2024 Orders Only [facility] Oncology and Hematology - [facility] [place] [address] Polycythemia, secondary 04/24/2024 Orders Only [facility] Oncology and Hematology - [facility] [place] [address] Polycythemia, secondary 04/11/2024 External Device Data STL ABSTRACTION Provider, Abstract 04/10/2024 Orders Only [facility] Oncology and Hematology - [place] [place] [address] Polycythemia, secondary 03/27/2024 Orders Only [facility] Oncology and Hematology - [place] [address] [place] [address] Polycythemia, secondary from Last 3 Months Family [...] on file 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 Gender Identity Not on file Sexual Orientation Not on file Last Filed Vital Signs Vital Sign Reading Time Taken Comments Blood Pressure 147/84 03/16/2024 11:39 AM BRIM STITCHER Pulse 87 03/16/2024 11:37 AM BRIM STITCHER Temperature 36.8 C (98.2 F) 03/16/2024 11:37 AM BRIM STITCHER Respiratory Rate 16 03/16/2024 11:37 AM BRIM STITCHER Oxygen Saturation 96% 03/16/2024 11:37 AM BRIM STITCHER Inhaled Oxygen Concentration - - Weight 105.7 kg (233 lb) 03/16/2024 11:37 AM BRIM STITCHER Height 180.3 cm (5' 11 ) 05/06/2023 10:45 AM BRIM STITCHER Body Mass Index 32.5 05/06/2023 10:45 AM BRIM STITCHER Plan of Treatment Upcoming Encounters Date Type Department Care Team (Late st Contact Info) Description 06/27/2024 11:15 AM CDT Office Visit [facility] Oncology and Hematology [facility] [address] [facility] [address] [place] [address] Asim Armendariz MD [address] [facility] [address] [address] [place] [address] Health Maintenance Due Date Last [...] 09/20/19 20 Colorectal Cancer Screening 06/02/2031 Insurance [facility] [id number] Care Teams Recruiting Assistant Relationship Specialty Start Date End Date Jerome Pardo MD [address] [place] [phone] PCP - General Family Practice 05/06/23
--- OUTSIDE RECORDS SUMMARY | 2024-06-23 17:32 | XMS_ITS | Encounter Summary ---
Author Organization [facility] Micrima Address [address] [place] [address] Care Team Providers Care Certified Dialysis Technician Name Role Phone Jerome Pardo MD Primary Care Provider + Encounter Details Date Type Department Care Team (Late st Contact Info) Description 06/19/2024 Orders Only [facility] On[facility] and Hematology - [facility] [address] [facility] [address] [place] [address] Polycythemia, secondary Social History Tobacco Use Types Packs/Day Years Used Date Smoking Tobacco: Former Cigarettes 1 25 Smokeless Tobacco: Never Alcohol Use Standard Drinks/Week Comments Never 0 (1 standard drink = 0.6 oz pur e alcohol) Sex and Gender Information Value Date Recorded Sex Assigned at Not on file 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 Gender Identity Not on file Sexual Orientation Not on file documented as of this encounter Plan of Treatment Upcoming Encounters Date Type Department Care Team (Late st Contact Info) Description 06/27/2024 11:15 AM CDT Office Visit [facility] Oncology and Hematology - [facility] [place] [address] Asim Armendariz MD [address] [facility] [address] [place] [address] documented as of this encounter Visit Diagnoses Diagnosis Polycythemia, secondary documented in this encounter Care Teams Certified Dialysis Technician Relationship Specialty Start Date End Date Jerome Pardo MD [address] [place] [phone] PCP - General Family Practice 05/06/23 documented as of this encounter
--- OUTSIDE RECORDS SUMMARY | 2024-06-23 17:32 | XMS_ITS | Encounter Summary ---
Author Organization [facility] Address [address] [place] [address] Care Team Providers Care Sanitation Worker Name Role Phone Jerome Pardo MD Primary Care Provider [phone] Encounter Details Date Type Department Care Team (Late st Contact Info) Description 09/18/2019 Lab Requisition [facility] [address] [place] [address] Bobby Streeter MD Social History [...] Not detected, Invalid 09/18/2019 5:21 PM CDT [facility] MICROBIOLOGY Microbiology SPECIMEN FROM NASOPHARYNGEAL STRUCTURE / Unknown Collection / Unknown 09/17/2019 7:52 PM CDT 09/18/2019 9:15 AM CDT Narrative [facility] MICROBIOLOGY - 09/18/2019 5:21 PM CDT This Real Time RT-PCR assay was developed and its performance characteristics determined by [facility]. This test has been authorized [...] Bobby Streeter MD LAB - MICROBIOLOGY ORDERABLES [facility] MICRO[facility] [address] [place], [place] [address], [facility] [[email or web address]] [phone] documented in this encounter Visit Diagnoses Not on filedocumented in this encounter Additional Health Concerns Infection Onset Date Last Indicated Resolved Time COVID-19 Under Investigation 09/18/2019 09/17/2019 09/18/2019 5:21 PM CDT documented as of this encounter Care Teams Sanitation Worker Relationship Specialty Start Date End Date Jerome Pardo MD [address] [place] [phone] PCP - General 06/01/19 documented as of this encounter
--- OUTSIDE RECORDS SUMMARY | 2024-06-23 17:32 | XMS_ITS | Clinical Summary ---
Author Organization [facility] Address [address], [facility] [address] [place] [address] Phone Care Team Providers Care Ticket Writer Name Role Phone Jerome Pardo MD Primary Care Provider [phone] Krish Donaldson DPM Unavailable [phone] Allergies No known active allergies Medications pravastatin (PRAVACHOL) 20 MG Tablet Take 20 mg by mouth every morning. Active RELION PEN NEEDLES 32G X 4 MM [facility] 6 Active triamterene-hydr ochlorothiazide (DYAZIDE) 37.5-25 MG Capsule every morning. 6 Active amLODIPine (NORVASC) 10 MG Tablet every morning. 9 Active glipiZIDE (GLUCOTROL) 10 MG Tablet every morning. 9 Active PRODIGY NO CODING BLOOD GLUC Strip 9 Active PRODIGY TWIST TOP LANCETS 28G [facility] 9 Active JANUVIA 100 MG Tablet every [...] to complete this topic Insurance MEDICARE C [facility] MEDICARE Care Teams Ticket Writer Relationship Specialty Start Date End Date Jerome Pardo MD [address] [place] [address] [place] [address] PCP - General Family Medicine 02/18/15 Krish Donaldson DPM [address] [place] [address] [place] [address] Podiatry 01/07/16
--- OUTSIDE RECORDS SUMMARY | 2024-06-23 17:32 | XMS_ITS | CONTINUITY OF CARE DOCUMENT ---
Author Name jihanjohn, jihanjohn Address Unknown Organization [facility] Address [address] [facility] [address] [place] [address] Phone [phone] Care Team Providers Care Precision Instrument And Tool Maker Name Role Phone Brennan Beard MD Unavailable JEROME WALKER MD Unavailable JEROME WALKER MD Unavailable [phone] PROBLEMS Condition Status Date Provider Notes EKG active Brennan Beard MD Family History of CVA or Stroke: active José Manuel Beard MD Family History of Hypertension: active Brie Beard MD Family History of Hypertension: active Brie Beard MD PVD with claudication active Brennan De Guzman Hyperlipidemia active Brennan Beard MD HTN essential active Brennan Beard MD Diabetes mellitus active Brennan Beard MD Indigestion active Brennan Beard MD Toe pain, left active Brennan Beard MD CKD active Brennan Beard MD ENCOUNTERS Date Type Provider Location Encounter Diag nosis - In-person encounter Office Visit Brennan Beard MD [facility] CKD - In-person encounter Office Visit Brennan Beard MD [facility] - In-person encounter Office Visit Brennan Beard MD [facility] - In-person encounter Office Visit Brennan Beard MD [facility] Toe pain, left - In-person encounter Office Visit Brennan Beard MD [facility] Indigestion - In-person encounter Office Visit Brennan Beard MD [facility] EKGFamily History of CVA or Stroke:Family History of Hypertension:Family History of Hypertension:PVD with claudicationHyperlipidemiaHTN essentialDiabetes mellitus VITAL SIGNS Date Observation Value Provider Body Mass Index (Ratio) 30.40 kg/m2 Brie Beard MD blood pressure, cuff size large Ke yhuni Erwin blood pressure, diastolic 98 mm[Hg] Ke rri Erwin blood pressure, systolic 156 mm[Hg] Lance ri Erwin oxygen saturation, oximetry 95 % Rasheeda Erwin respiratory rate E&M 16 /min Rasheeda Adolfo green pulse rate 96 /min Rasheeda Villasenor [facility] weight E&M 218 [lb_av] Rasheeda Hamilton [facility] height E&M 71 [in_i] Rasheeda Hamilton [facility] Body Mass Index (Ratio) 30.96 kg/m2 Brie [...] Brie Beard MD blood pressure, resting Yes [facility] blood pressure, diastolic 95 mm[Hg] [facility], [facility] 152 mm[Hg] Ton [facility] oxygen saturation, oximetry 96 % [facility] respiratory rate E&M 18 /min [facility] pulse rate 100 /min [facility] weight E&M 223 [lb_av] [facility] height E&M 71 [in_i] [facility] ALLERGIES No Known Drug Allergies HISTORY OF [...] smoking history, tot al pack/day 1 Kelsy Mahtis cigarette use yes Kelsy ramírez smoking status [...] 1 Rasheeda Hood cigarette use yes Rasheeda ramirze smoking status Current every day smoker Eddie [...] pack/day 1 Halle Mccrary cigarette use yes [facility] status Current every day smoker T idania Mccrary FAMILY HISTORY Family Member Condition Father Family History of Hy pertension: Father Family History of Di abetes: Mother Family History of Hy pertension: Mother Family History of Di abetes: Mother Family History of CV A or Stroke: INSURANCE PROVIDERS Payer name Policy type / Coverage type Felecia red republican ID [employer] MEDICARE GOLD ADVANTAGE HMO Medicare [id number] ADVANCE DIRECTIVES Name Date DISCUSSED - NO DECISION MADE TREATMENT PLAN Date Name Performer [id number],S,W ill check an echo Will check an angiogram as he has totally occluded right SFA and see if he is a candidate for intervention Brennan Beard MD [id number],S,H e needs a renal ultrasound and will check a microalb urine Brennan Beard MD [id number],S, B P today: 156/98 P rior BP: 157/99 (02/12/2022) Brennan Beard MD [id number],S, H is updated medication list for this problem includes: Pravastatin Sodium 20 Mg Oral Tablet (Pravastatin sodium) ..... Take 1 tablet by mouth once daily Brennan Beard MD [id number],S,Per PCP Brennan Beard MD [id number],S,W ill check an angiogram as he has totally occluded right SFA and see if he is a candidate for intervention Brennan Beard MD [id number],S,W ill start him on amlodipine 5mg once daily B P today: 157/99 P rior BP: 157/87 (01/23/2022) Brennan Beard MD [id number],S,Per PCP Brennan Beard MD [id number],C,H e does not know which BP med he is taking. B P today: 157/87 P rior BP: 142/80 (07/18/2020) Brennan Beard MD [id number],S,H e seems to have more problems on [...]
--- OUTSIDE RECORDS SUMMARY | 2024-06-23 17:33 | XMS_ITS | Clinical Summary ---
Author Organization [employer] [facility] , [facility] Address [address] [address] Phone Care Team Providers Care Aviation Project Manager Name Role Phone Unavailable Primary Care Provider [...] day Active Cholecalciferol (Vitamin D3) 1.25 MG (62554 UT) tablet Take 1 tablet by mouth [...] Department Care Team Description 05/02/2024 11:15 AM MOTOR POOL CLERK [facility] [address] [facility] [address] [place] [address] Beto Beckett MD Stage 3a chronic kidney disease (HCC) (Primary Dx); Essential hypertension; Type 2 diabetes mellitus, not otherwise specified (HCC); Pure hyperglyceridemia; Obstructive sleep apnea syndrome; Ex-cigarette smoker; Peripheral vascular disease (HCC); Gastroesophageal reflux disease 05/01/[address] [facility], [address] [phone] Eladia Adames CMA 04/27/[address] [facility] [address] [phone] Beto Beckett MD from Last 3 Months [...] Comments Blood Pressure 122/80 05/02/2024 11:35 AM MOTOR POOL CLERK Pulse 68 05/02/2024 11:35 AM MOTOR POOL CLERK Temperature 36.3 C (97.4 F) 05/02/2024 11:35 AM MOTOR POOL CLERK Respiratory Rate 18 05/02/2024 11:35 AM MOTOR POOL CLERK Oxygen Saturation 98% 05/02/2024 11:35 AM MOTOR POOL CLERK Inhaled Oxygen Concentration - - Weight 108 kg (237 lb) 05/02/2024 11:35 AM MOTOR POOL CLERK Height 180.3 cm (5' 11 ) 08/10/2023 10:17 AM CDT Body Mass Index 33.05 08/10/2023 10:17 AM CDT Plan of Treatment Upcoming Encounters Date Type Department Care Team (Late st Contact Info) Description 10/10/2024 10:15 AM CDT Office [facility], [facility] [address] [facility] [address] [place] [phone] Beto Beckett MD [address] [facility] [address] [place] [address] Health Maintenance Due Date Last [...] Comments SPECIMEN STATUS REPORT Routine 11:24 AM MOTOR POOL CLERK PTH, INTACT Routine 04/27/2024 11:24 AM MOTOR POOL CLERK PHOSPHATE ( PHOSPHORUS) Routine 04/27/2024 11:24 AM MOTOR POOL CLERK HEMOGLOBIN A1C Routine 04/27/2024 11:24 AM MOTOR POOL CLERK PROTEIN / CREATININE RATIO, URINE Routine 04/27/2024 11:24 AM MOTOR POOL CLERK LIPID PANEL Routine 04/27/2024 11:24 AM MOTOR POOL CLERK REFLEXIVE URINE CULTURE (HC) Routine 04/27/2024 11:24 AM MOTOR POOL CLERK URINALYSIS, COMPLETE Routine 04/27/2024 11:24 AM MOTOR POOL CLERK COMPREHENSIVE METABOLIC PANEL Routine 04/27/2024 11:24 AM MOTOR POOL CLERK CBC DIFF AMBIGUOUS DEFAULT - DO NOT USE Routine 04/27/2024 11:24 AM MOTOR POOL CLERK MICROSCOPIC EXAMINATION - DO NOT USE Routine 04/27/2024 11:24 AM MOTOR POOL CLERK from Last 3 Months Results * Reflexive Urine Culture (04/27/2024 11:24 AM MOTOR POOL CLERK) Pathologist [facility] Culture Result, Urine Final report [facility] Result Comment [facility] Comment: Culture shows less than 10,000 colony forming units of bacteria per milliliter of urine. This colony count is not generally considered to be clinically significant. 04/27/2024 11:2 4 AM MOTOR POOL CLERK 04/26/2024 11:00 PM MOTOR POOL CLERK us Beto Beckett MD LAB [id number] NSOLICITED RESULTS Final Result [facility] [address] [place] [address] * (ABNORMAL) Urinalysis, Complete w/reflex to Culture (04/27/2024 11:24 AM MOTOR POOL CLERK) Specific Jackson, Urine 1.019 1.005 - 1.030 [facility] [phone] pH Urine 6.0 5.0 - 7.5 [facility] [phone] Color, Urine Yellow Yellow [facility] Appearance Urine Clear Clear [facility] WBC Esterase Urine Trace(A) Negative [facility] [phone] Protein, Ur Trace Negative/Tra ce [facility] Glucose, Ur Negative Negative [facility] [phone] Ketones, Urine Negative Negative [facility] [phone] Blood Urine Negative Negative [facility] [phone] Bilirubin Urine Negative Negative [facility] [phone] Urobilinogen Urine 0.2 0.2 - 1.0 mg/dL [facility] Nitrite, Urine Negative Negative [facility] [phone] Microscopic Examination See below: [facility] Comment:Microscopic was obey cated and was performed. URINALYSIS REFLEX Comment [facility] Comment:This specimen has re flexed to a Urine Culture. 04/27/2024 11:2 4 AM MOTOR POOL CLERK 04/26/2024 11:00 PM MOTOR POOL CLERK us Beto Beckett MD LAB URINE ORDERABLES Final R esult [facility] [address] [place] [address] * SPECIMEN STATUS REPORT (04/27/2024 11:24 AM MOTOR POOL CLERK) Specimen Status Comment [facility] Comment: Reinaldo Powellremarichuy CMP14 Default Reinaldo Powellremarichuy CMP14 Default A hand-written panel/profile was received from your office. In accordance with the [facility] Ambiguous Test Code Policy dated October 2002, we have completed your order by using the closest currently or formerly recognized AMA panel. We have assigned Comprehensive Metabolic Panel (14), Test Code #008056 to this request. If this is not the testing you wished to receive on this specimen, please contact the [employer] Client Inquiry/Technical Services Department to clarify the test order. We appreciate your business. [employer] Default Reinaldo Abbrev LP Default A hand-written panel/profile was received from your office. In accordance with the [facility] Ambiguous Test Code Policy dated October 2002, we have completed your order by using the closest currently or formerly recognized AMA panel. We have assigned Lipid Panel, Test Code #728364 to this request. If this is not the testing you wished to receive on this specimen, please contact the [email or web address] Client Inquiry/Technical Services Department to clarify the test order. We appreciate your business. 04/27/2024 11:2 4 AM MOTOR POOL CLERK 04/26/2024 11:00 PM MOTOR POOL CLERK Beto Beckett MD LAB BLOOD ORDERABLES Final R esult Performing Organization Address City[facility] Co de Phone Number [facility] [employer] [address] [place] [address] * Microscopic Examination (04/27/2024 11:24 AM MOTOR POOL CLERK) WBC, Urine 0-5 0 - 5 /hpf [facility] RBC, Urine None seen 0 - 2 /hpf [facility] Squamous Epithelial, Urine 0-10 0 - 10 /hpf [facility] Casts None seen None seen /lpf [facility] Bacteria, Urine None seen None seen/Few [facility] [employer] 04/27/2024 11:2 4 AM MOTOR POOL CLERK 04/26/2024 11:00 PM MOTOR POOL CLERK us Beto Beckett MD LAB MICROBIOLOGY - GENERAL O RDERABLES Final Result [facility] [address] [place] [address] * (ABNORMAL) CBC Diff Ambiguous Default (04/27/2024 11:24 AM MOTOR POOL CLERK) WBC 5.7 3.4 - 10.8 x10E3/uL [facility] RBC 5.86(H) 4.14 - 5.80 x10E6/uL [facility] Hemoglobin 16.4 13.0 - 17.7 g/dL [facility] Hematocrit 52.8(H) 37.5 - 51.0 % [facility] MCV 90 79 - 97 fL [facility] MCH 28.0 26.6 - 33.0 pg [facility] MCHC 31.1(L) 31.5 - 35.7 g/dL [facility] RDW 14.5 11.6 - 15.4 % [facility] Platelets 281 150 - 450 x10E3/uL [facility] Neutrophils Relative 57 Not Estab. % [facility] Lymphocytes Relative 30 Not Estab. % [facility] Monocytes 9 Not Estab. % [facility] Eosinophils Relative 3 Not Estab. % [facility] Basophils Relative 1 Not Estab. % [facility] Neutrophils Absolute 3.2 1.4 - 7.0 x10E3/uL [facility] Lymphocytes Absolute 1.7 0.7 - 3.1 x10E3/uL [facility] Monocytes Absolute 0.5 0.1 - 0.9 x10E3/uL [facility] Eosinophils Absolute 0.2 0.0 - 0.4 x10E3/uL [facility] Basophils Absolute 0.1 0.0 - 0.2 x10E3/uL [facility] Immature Granulocytes 0 Not Estab. % [facility] Immature Grans (Absolute) 0.0 0.0 - 0.1 x10E3/uL [facility] Comment: A hand-written panel/profile was received from your office. In accordance with the [facility] Ambiguous Test Code Policy dated October 2002, we have assigned CBC with Differential/Platelet, Test Code #535199 to this request. If this is not the testing you wished to receive on this specimen, please contact the [facility] Client Inquiry/ Technical Services Department to clarify the test order. We appreciate your business. 04/27/2024 11:2 4 AM MOTOR POOL CLERK 04/26/2024 11:00 PM MOTOR POOL CLERK Beto Beckett MD LAB BLOOD ORDERABLES Final R esult Performing Organization Address [facility] Co de Phone Number [facility] [address] [place] [address] * Protein, Total, Random Urine w/Creatinine (Protein/Creat Ratio) (04/27/2024 11:24 AM MOTOR POOL CLERK) Creatinine, Ur 189.4 Not Estab. mg/dL [facility] Protein, Ur 17.4 Not Estab. mg/dL [facility] Urine Protein/Creatin ine Ratio 92 0 - 200 mg/g creat [facility] 04/27/2024 11:2 4 AM MOTOR POOL CLERK 04/26/2024 11:00 PM MOTOR POOL CLERK Beto Beckett MD LAB URINE ORDERABLES Final R esult Performing Organization Address [facility] Co de Phone Number [facility] [address] [place] [address] * Phosphorus (04/27/2024 11:24 AM MOTOR POOL CLERK) Phosphorus 2.8 2.8 - 4.1 mg/dL [facility] 04/27/2024 11:2 4 AM MOTOR POOL CLERK 04/26/2024 11:00 PM MOTOR POOL CLERK Beto Beckett MD LAB BLOOD ORDERABLES Final R esult [facility] [address] [place] [address] * (ABNORMAL) PTH, Intact (04/27/2024 11:24 AM MOTOR POOL CLERK) PTH 67(H) 15 - 65 pg/mL [facility] 04/27/2024 11:2 4 AM MOTOR POOL CLERK 04/26/2024 11:00 PM MOTOR POOL CLERK Beto Beckett MD LAB BLOOD ORDERABLES Final R esult Performing Organization Address City/[facility]/ZIP Co de Phone Number [facility] [employer] [address] [place] [address] * (ABNORMAL) Hemoglobin A1c (04/27/2024 11:24 AM MOTOR POOL CLERK) Hemoglobin A1C 7.0(H) 4.8 - 5.6 % [facility] Comment: Prediabetes: 5.7 - 6.4 Diabetes: >6.4 Glycemic control for adults with diabetes: <7.0 04/27/2024 11:2 4 AM MOTOR POOL CLERK 04/26/2024 11:00 PM MOTOR POOL CLERK Beto Beckett MD LAB BLOOD ORDERABLES Final R esult Performing Organization Address [facility]/ZIP Co de Phone Number [facility] [address] [place] [address] * (ABNORMAL) Lipid panel (04/27/2024 11:24 AM MOTOR POOL CLERK) Cholesterol 184 100 - 199 mg/dL [facility] Triglycerides 123 0 - 149 mg/dL [facility] HDL 52 >39 mg/dL [facility] VLDL Cholesterol Kevon 22 5 - 40 mg/dL [facility] LDL Calculated 110(H) 0 - 99 mg/dL [facility] 04/27/2024 11:2 4 AM MOTOR POOL CLERK 04/26/2024 11:00 PM MOTOR POOL CLERK Beto Beckett MD LAB BLOOD ORDERABLES Final R esult [facility] [address] [place] [address] * (ABNORMAL) Comprehensive Metabolic Panel (04/27/2024 11:24 AM MOTOR POOL CLERK) Glucose 104(H) 70 - 99 mg/dL [facility] BUN 21 8 - 27 mg/dL [facility] Creatinine 1.56(H) 0.76 - 1.27 mg/dL [facility] eGFR CKD-EPI CR 2020 48(L) >59 mL/min/1.7 3 [facility] BUN/Creatinine Ratio 13 10 - 24 [facility] Sodium 139 134 - 144 mmol/L [facility] Potassium 4.6 3.5 - 5.2 mmol/L [facility] Chloride 105 96 - 106 mmol/L [facility] Bicarbonate (CO2) 19(L) 20 - 29 mmol/L [facility] Calcium 9.9 8.6 - 10.2 mg/dL [facility] Total Protein 8.1 6.0 - 8.5 g/dL [facility] Albumin 4.7 3.9 - 4.9 g/dL [facility] Globulin 3.4 1.5 - 4.5 g/dL [facility] Total Bilirubin 0.6 0.0 - 1.2 mg/dL [facility] Alkaline Phosphatase 125(H) 44 - 121 IU/L [facility] AST (SGOT) 19 0 - 40 IU/L [facility] ALT (SGPT) 14 0 - 44 IU/L [facility] 04/27/2024 11:2 4 AM MOTOR POOL CLERK 04/26/2024 11:00 PM MOTOR POOL CLERK us Beto Beckett MD LAB BLOOD ORDERABLES Final R esult [facility] [address] [place] [address] from Last 3 Months Insurance [employer]
--- OUTSIDE RECORDS SUMMARY | 2024-06-23 17:33 | XMS_ITS | Clinical Summary ---
Author Organization [facility] Address [address] [place] [address] Care Team Providers Care Child And Youth Program Assistant Name Role Phone Jerome Pardo MD Primary Care Provider [phone] Source Comments [facility],non-owned Affiliates and Associated Physician Practices is amultiple site organization consisting of ambulatory clinics and hospital sitesin [place], [place], [place] and [place]. This disclosure is being madepursuant to the Care Everywhere program and may not contain all information available regarding this patient. Last updated 17.[facility] Social History Tobacco Use Types Packs/Day Years [...] age to complete this topic Care Teams Child And Youth Program Assistant Relationship Specialty Start Date End Date Jerome Pardo MD [address] [place] [phone] PCP - General 06/01/19
[2024-06-23] MEDS: NAPROXEN SODIUM 220 MG TABLET PO (18:16)
== END 2024-06-23 20:45 | disposition home or self-care (01) ==
PROVIDERS: Student in an Organized Health Care Education/Training Program; Emergency Provider Registered Nurse; PCP Family Medicine
DX: H81.10 Benign paroxysmal vertigo, unspecified ear (principal); I10 Essential (primary) hypertension; E11.9 Type 2 diabetes mellitus without complications; Z79.4 Long term (current) use of insulin; Z79.899 Other long term (current) drug therapy; Z79.84 Long term (current) use of oral hypoglycemic drugs
CPT/HCPCS: 36415; 70450; 71046; 80053; 81001; 85025; 87086; 93005; 99284; A9270

== ENCOUNTER 2024-07-27 10:47 | Outpatient (CLI) | payer MEDICARE, SELFPAY ==
--- NOTE | ~2024-07-27 | XR_ITS ---
Right Shoulder Technique: AP and scapular Y views were obtained. Clinical History: Pain Findings: No fracture or dislocation is seen. Osseous alignment is anatomic. The glenohumeral and acr omioclavicular joint spaces are preserved. Soft tissues are unremarkable. Impression: Unremarkable right shoulder radiographs. Reviewed, dictated and finalized at [facility]. Impression: Unremarkable right shoulder radiographs.
--- OUTSIDE RECORDS SUMMARY | 2024-07-27 12:14 | XMS_ITS | CONTINUITY OF CARE DOCUMENT ---
Author Name jihanjohn, ijhanjohn Address Unknown Organization [facility] Address [address] [place] [address] Phone [phone] Care Team Providers Care Spark Plug Tester Name Role Phone Brennan Beard MD Unavailable [phone] JEROME WALKER MD Unavailable [phone] JEROME WALKER MD Unavailable [phone] PROBLEMS Condition Status Date Provider Notes EKG [...] In-person encounter Office Visit Brennan Beard MD [facility] CKD - In-person encounter Office Visit Brennan Beard MD [facility] - In-person encounter Office Visit Brennan Beard MD [facility] - In-person encounter Office Visit Brennan Beard MD [facility] Toe pain, left - In-person encounter Office Visit Brennan Beard MD [facility] Indigestion - In-person encounter Office Visit Brennan Beard MD [facility] EKGFamily History of CVA or Stroke:Family [...] green pulse rate 96 /min Rasheeda Villasenor [facility] weight E&M 218 [lb_av] Rasheeda Hamilton [facility] height E&M 71 [in_i] Rasheeda Hamilton [facility] Body Mass Index (Ratio) 30.96 kg/m2 Brie [...] Brie Beard MD blood pressure, resting Yes [facility] blood pressure, diastolic 95 mm[Hg] [facility] systolic 152 mm[Hg] Ton [facility] oxygen saturation, oximetry 96 % [facility] respiratory rate E&M 18 /min [facility] pulse rate 100 /min [facility] weight E&M 223 [lb_av] [facility] height E&M 71 [in_i] [facility] ALLERGIES No Known Drug Allergies HISTORY OF [...] once daily to test blood sugar - Arsheeda Grjaretnenfelder #100, 90 days supply, Prescribed by [...] Rasheeda ramirez smoking status Former smoker Rasheeda collinsajmes social history E&M S moking History: Keshav [...] Halle Mccrary cigarette use yes [facility] smoking status Current every day smoker T idania Mccrary FAMILY HISTORY Family Member Condition Father Family History of Hy pertension: Father Family History of Di abetes: Mother Family History of Hy pertension: Mother Family History of Di abetes: Mother Family History of CV A or Stroke: INSURANCE PROVIDERS Payer name Policy type / Coverage type Felecia red democrat ID [employer] MEDICARE GOLD ADVANTAGE HMO Medicare [id number] ADVANCE DIRECTIVES Name Date DISCUSSED - NO DECISION MADE TREATMENT PLAN Date Name Performer [id number],S,W ill check an echo Will check an angiogram as he has totally occluded right SFA and see if he is a candidate for intervention Brennan Beard MD [id number],S,H e needs a renal ultrasound and will check a microalb urine Brennan Beard MD [id number],S, B P today: 156/98 P rior BP: 157/99 (02/12/2022) Brennan Beard MD [id number],S, H is updated medication list for this problem includes: Pravastatin Sodium 20 Mg Oral Tablet (Pravastatin sodium) ..... Take 1 tablet by mouth once daily Brennan Beard MD [id number],S,Per PCP Brennan Beard MD [id number],S,W ill check an angiogram as he has totally occluded right SFA and see if he is a candidate for intervention Brennan Beard MD [id number],S,W ill start him on amlodipine 5mg once daily B P today: 157/99 P rior BP: 157/87 (01/23/2022) Brennan Beard MD [id number],S,Per PCP Brennan Beard MD [id number],C,H e does not know which BP med he is taking. B P today: 157/87 P rior BP: 142/80 (07/18/2020) Brennan Beard MD [id number],S,H e seems to have more problems on [...]
--- OUTSIDE RECORDS SUMMARY | 2024-07-27 12:15 | XMS_ITS | Clinical Summary ---
Author Organization [facility] Address [address], [facility] [address] [place] [address] Phone Care Team Providers Care Country Manager Name Role Phone Jerome Pardo MD Primary Care Provider [phone] Krish Donaldson DPM Unavailable [phone] Allergies No known active allergies Medications pravastatin (PRAVACHOL) 20 MG Tablet Take 20 mg by mouth every morning. Active RELION PEN NEEDLES 32G X 4 MM [facility] 6 Active triamterene-hydr ochlorothiazide (DYAZIDE) 37.5-25 MG Capsule every morning. 6 Active amLODIPine (NORVASC) 10 MG Tablet every morning. 9 Active glipiZIDE (GLUCOTROL) 10 MG Tablet every morning. 9 Active PRODIGY NO CODING BLOOD GLUC Strip 9 Active PRODIGY TWIST TOP LANCETS 28G [facility] 9 Active JANUVIA 100 MG Tablet every [...] to complete this topic Insurance MEDICARE C [facility] MEDICARE Care Teams Country Manager Relationship Specialty Start Date End Date Jerome Pardo MD [address] [place] [address] [place] [address] PCP - General Family Medicine 02/18/15 Krish Donaldson DPM [address] [place] [address] [place] [address] Podiatry 01/07/16
--- OUTSIDE RECORDS SUMMARY | 2024-07-27 12:15 | XMS_ITS | Clinical Summary ---
Author Organization [facility] Eleonora rdz [facility] Address [address] [place] [address] Care Team Providers Care Physical Science Teacher Name Role Phone Jerome Pardo MD Primary [...] daily as needed for Erectile Dysfunction. Active meclizine (ANTIVERT) 12.5 mg tablet Take 12.5 mg by mouth 3 times daily as needed for Dizziness. 5 Active Active Problems Problem Noted Date Diagnosed Date Elevated red blood cell count 05/06/2023 Encounters Date Type Department Care Team Description 07/17/2024 Orders Only [facility] [address] [place] [address] Polycythemia, secondary 07/03/2024 Orders Only [facility] [address] [place] [address] Polycythemia, secondary 06/27/2024 11:15 AM CDT [facility] Jennifer [address] [place] [address] Asim Armendariz MD Polycythemia, secondary (Primary Dx) 06/19/[address] [facility] [address] [place] [address] Polycythemia, secondary 06/05/2024 Orders Only [facility] [address] [place] [address] Polycythemia, secondary 05/22/[address] [facility] [address] [place] [address] Polycythemia, secondary 05/08/[address] [facility] [address] [place] [address] Polycythemia, secondary from Last 3 Months Family [...] on file Legal Sex Male 10:56 AM MANAGED CARE DIRECTOR Gender Identity Not on file Sexual Orientation Not on file Last Filed Vital Signs Vital Sign Reading Time Taken Comments Blood Pressure 138/81 06/27/2024 11:22 AM CDT Pulse 101 06/27/2024 11:18 AM CDT Temperature 36.3 C (97.4 F) 06/27/2024 11:18 AM CDT Respiratory Rate 15 06/27/2024 11:1 8 AM CDT Oxygen Saturation 93% 06/27/2024 11: 18 AM CDT Inhaled Oxygen Concentration - - Weight 104.7 kg (230 lb 12.8 oz) 2024 11:18 AM CDT Height 180.3 cm (5' 11 ) 05/06/2023 10: 45 AM MANAGED CARE DIRECTOR Body Mass Index 32.19 05/06/2023 10:45 AM MANAGED CARE DIRECTOR Plan of Treatment Upcoming Encounters Date Type Department Care Team (Late st Contact Info) Description 01/02/2025 10:15 AM CDT Office Visit [facility] Oncology and Hematology [facility] [address] [facility] [address] [place] [address] Asim Armendariz MD [address] [facility] [address] [place] [address] Health Maintenance Due Date Last [...] - PPSV23) 05/05/2018 03/10/2018 Abdominal Aortic Aneurysm (A AA) Screening 12/17/2019 INFLUENZA VACCINE (#1) 2023 01/23/2015 COVID-19 Vaccine (3 - season) 2023, 07/04/2020 DIABETES HBA1C Q 6 MONTHS 10/25/20242024, 08/04/2023, 04/08/2023 COLORECTAL SCREENING 06/02/2031 06/02/2021, 09/20/19 Colorectal Cancer Screening 06/02/2031 Insurance [facility] M[facility] Care Teams Physical Science Teacher Relationship Specialty Start Date End Date Jerome Pardo MD [address] [place] [phone] PCP - General Family Practice 05/06/23
--- OUTSIDE RECORDS SUMMARY | 2024-07-27 12:15 | XMS_ITS | Clinical Summary ---
Author Organization [facility] [employer] [facility] Address [address] [place] [address] Phone Care Team Providers Care Children'S Nursery Assistant Name Role Phone Unavailable Primary Care Provider Unavailabl e Allergies No known active allergies Medications * This document contains information received from the source organization and may not represent a complete record from that organization. clopidogrel (PLAVIX) 75 MG tablet Take 75 mg by mouth 1 (one) time each day 07/09/19 21 Active triamterene-hy droCHLOROthiaz venkat (MAXZIDE-25) 37.5-25 MG per tablet Take 1 tablet by mouth 1 (one) time each day 07/24/19 21 Active pravastatin (PRAVACHOL) 20 MG tablet Take 20 mg by mouth 1 (one) time each day 09/08/19 20 Active glipiZIDE (GLUCOTROL) 10 MG tablet Take 10 mg by mouth 1 (one) time each day 01/18/20 19 Active Canagliflozin (Invokana) 300 MG tablet Take 1 tablet by mouth 1 (one) time each day Active NIFEdipine CC (ADALAT CC) 30 MG 24 hr tablet Take 30 mg by mouth 1 (one) time each day before breakfast Do not crush, chew, or split. Active tamsulosin (FLOMAX) 0.4 MG 24 hr capsule Take 0.4 mg by mouth 1 (one) time each day Active Cholecalcifero l (Vitamin D3) 1.25 MG (00173 UT) tablet Take 1 tablet by mouth per week Active insulin detemir (LEVEMIR) 100 UNIT/ML injection Inject 26 Units under the skin every night Active sildenafil (VIAGRA) 100 MG tablet Take 100 mg by mouth 1 (one) time each day if needed for erectile dysfunction Active famotidine (PEPCID) 40 MG tablet Take 1 tablet by mouth nightly 90 tablet 07/19/19 Active famotidine (PEPCID) 40 MG tablet Take 1 tablet (40 mg total) by mouth every night 90 tablet 05/01/19 25 025 Discontinued Active Problems Problem Noted Date Diagnosed Date Secondary polycythemia 08/10/2023 Type 2 diabetes mellitus 04/28/2022 Ex-cigarette smoker 03/17/2022 Stage 3a chronic kidney disease 03/17/2022 Abdominal aortic aneurysm without rupture 2021 Peripheral vascular disease 03/17/2022 Vitamin D deficiency 03/12/2022 Gastroesophageal reflux disease 03/12/2022 Hyperlipidemia 10/26/2019 Essential hypertension 10/02/2019 Obstructive sleep apnea syndrome 10/02/2019 Encounters Date Type Department Care Team Description 07/18/2024 Refill [email or web address] [address] [phone] Beto Beckett MD 05/02/2024 11:15 AM MEDICAL NUMERICAL CONTROL OPERATOR Office Visit [facility], [email or web address] [address] [phone] Beto Beckett MD Stage 3a chronic kidney disease (HCC) (Primary Dx); Essential hypertension; Type 2 diabetes mellitus, not otherwise specified (HCC); Pure hyperglyceridemia; Obstructive sleep apnea syndrome; Ex-cigarette smoker; Peripheral vascular disease (HCC); Gastroesophageal reflux disease 05/01/2024 Refill [facility], [email or web address] [phone] Eladia Adames CMA from Last 3 Months Family History Medical [...] Comments Blood Pressure 122/80 05/02/2024 11:35 AM MEDICAL NUMERICAL CONTROL OPERATOR Pulse 68 05/02/2024 11:35 AM MEDICAL NUMERICAL CONTROL OPERATOR Temperature 36.3 C (97.4 F) 05/02/2024 11:35 AM MEDICAL NUMERICAL CONTROL OPERATOR Respiratory Rate 18 05/02/2024 11:35 AM MEDICAL NUMERICAL CONTROL OPERATOR Oxygen Saturation 98% 05/02/2024 11:35 AM MEDICAL NUMERICAL CONTROL OPERATOR Inhaled Oxygen Concentration - - Weight 108 kg (237 lb) 05/02/2024 11:35 AM MEDICAL NUMERICAL CONTROL OPERATOR Height 180.3 cm (5' 11 ) 08/10/2023 10:17 AM CDT Body Mass Index 33.05 08/10/2023 10:17 AM CDT Plan of Treatment Upcoming Encounters Date Type Department Care Team (Late st Contact Info) Description 10/10/2024 10:15 AM CDT Office Visit [facility], [facility] [address] [facility] [place] [phone] Beto Beckett MD [address] [facility] [address] [place] [phone] Health Maintenance Due Date Last Done Comments Colorectal Cancer Screening: Annual FOBT 12/17/2003 Colorectal Cancer Screening: Colonoscopy 12/17/2003 Colorectal Cancer Screening: Sigmoidoscopy 12/17/2003 Pneumococcal Vaccine: 50+ Years (2 of 2 - PPSV23) 05/05/2018 03/10/2018 Diabetes: Ophthalmology Exam 01/29/2022 Diabetes: Pedal Pulse Checked 01/29/2022 Diabetes: Sensory Foot Exam 01/29/2022 Diabetes: Visual Foot Exam 01/29/2022 Diabetes: Hemoglobin A1C 07/26/2024 025, 08/04/2023, 04/08/2023, Additional history exists Influenza Vaccine (Season Ended) 2024 01/23/2015 Hepatitis B Vaccine Aged Out No longe r eligible based on patient's age to complete this topic Procedures Procedure Name Priority Date/Time Associated Diagnosis Comments HEMOGLOBIN A1C Routine 04/27/2024 11:24 AM MEDICAL NUMERICAL CONTROL OPERATOR from Last 3 Months or Most Recently Relevant to Health Maintenance Results * (ABNORMAL) Hemoglobin A1c (04/27/2024 11:24 AM MEDICAL NUMERICAL CONTROL OPERATOR) Hemoglobin A1C 7.0(H) 4.8 - 5.6 % [facility] Comment: Prediabetes: 5.7 - 6.4 Diabetes: >6.4 Glycemic control for adults with diabetes: <7.0 04/27/2024 11:2 4 AM MEDICAL NUMERICAL CONTROL OPERATOR 04/26/2024 11:00 PM MEDICAL NUMERICAL CONTROL OPERATOR us Beto Beckett MD LAB BLOOD ORDERABLES Final R esult [facility] [address] [place] [phone] from Last 3 Months or Most Recently Relevant to Health Maintenance Insurance [employer]
--- OUTSIDE RECORDS SUMMARY | 2024-07-27 12:15 | XMS_ITS | Clinical Summary ---
Author Organization [facility] Address [address] [place] [address] Care Team Providers Care Reconstructive Surgeon Name Role Phone Jerome Pardo MD Primary Care Provider [phone] Source Comments [facility] [employer],non-owned Affiliates and Associated Physician Practices is amultiple site organization consisting of ambulatory clinics and hospital sitesin [place], [place], [place] and [place]. This disclosure is being madepursuant to the Care Everywhere program and may not contain all information available regarding this patient. 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
--- OUTSIDE RECORDS SUMMARY | 2024-07-27 12:15 | XMS_ITS | Encounter Summary ---
Author Organization 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 This test has been authorized [...] sooner. Bobby Streeter MD LAB - MICROBIOLOGY ORDERABL ES Final Result [facility] [address] [place] [address], [facility] [phone] documented in this encounter Visit Diagnoses Not on filedocumented in this encounter Additional Health Concerns Infection Onset Date Last Indicated Resolved Time COVID-19 Under Investigation 09/18/2019 09/17/2019 09/18/2019 5:21 PM CDT documented as of this encounter Care Teams Willow Machine Tender Relationship Specialty Start Date End Date Jerome Pardo MD [address] [place] [phone] PCP - General 06/01/19 documented as of this encounter
--- OUTSIDE RECORDS SUMMARY | 2024-07-27 12:15 | XMS_ITS ---
Author Organization [facility] Address [address] [place], [place] [address] Care Team Providers Care Financial Project Manager Name Role Phone TIMOTEO BARRAZA Unavailable [phone] Jerome Pardo Unavailable Unavailable REASON FOR VISIT [...] alcohol 0.7 ML/ML Medicated Pad *Reorder from [employer] for eRx and Interaction Alerts* 10/27/2021 12/20/2045 Active Vital Signs Weight 208 lbs 07/24/2024 Weight-kg 94.35 kg 07/24/2024 Height 71.00 in 07/24/2024 Height-cm 180.34 cm 07/24/2024 BMI 29.01 kg/m2 07/24/2024 Encounters Encounter Location Date Provider Diagnosis [facility] [address] [place], [place] [phone] 07/24/2024 TIMOTEO BRARAZA Tinea unguium B35.1 ; Acquired keratosis [keratoderma] palmaris et plantaris L85.1 ; Atherosclerosis of [place] arteries of extremities with intermittent claudication, bilateral legs I70.213 ; Pain in right foot M79.671 and Pain in left foot M79.672 Assessments Encounter Date Diagnosis (ICD Code) Assessment Notes Treatment Notes Treatment Clinical Notes Section Notes 07/24/2024 Tinea unguium (ICD-10 - B35.1) Nails 1-5 Bilateral were debrided extensively with nail nippers and emery board, reducing length and girth to pink healthy tissue with any subungual debris and necrotic tissue removed 07/24/2024 Acquired keratosis [keratoderma] palmaris et plantaris (ICD-10 - L85.1) A total of 3 corns or calluses, as described in the note above, were cut and pared utilizing a #15 blade 07/24/2024 Atherosclerosis of [place] arteries of extremities with intermittent claudication, bilateral legs (ICD-10 - I70.213) 07/24/2024 Pain in right foot (ICD-10 - M79.671) 07/24/2024 Pain in left foot (ICD-10 - M79.672) [...] Name:TIMOTEO BARRAZA, 10:30:00 AM, [address], [address], [id number], Progress Notes * ECTOR VÁZQUEZOB:1955 ([age] yo M)Acc No.[id number]:07/24/2024 Patient: PATRICK KIRBY Provider: Sundeep Barraza DPM :1955 A ge:68 Y S ex:Male Date:07/24/2024 Address:[address] [id number] Subjective: * Chief Complaints: * 1 . Patient presents for at-risk foot care . The patient has painful toenails and calluses that are causing difficulty with ambulation and shoegear. The onset is gradual. * HPI: H PI: General care P atient presents to the office for diabetic foot care. Patient states that their nails are thickened, elongated and painful. Patient states that it is aggravated by shoe gear. Onset is gradual., Patient is taking prescription blood thinners., Date last seen by Dr. Pardo was 06/2024., Initials mca. * ROS: G eneral / Constitutional: Patient denies c hange in appetite, fatigue, chills, fever, night sweats. M usculoskeletal: Patient complains of a rthritis. P eripheral Vascular: Patient denies u lceration of feet. S kin: Patient complains of f ungal nails, dry skin. ? * Medical History: * Social History: M igrated Social History: M igrated Social History: History of tobacco use : Current everyday tobacco user , Smoking Status : Current everyday tobacco user. * Medications: T aking isopropyl alcohol 0.7 ML/ML Medicated Pad , stop date 12/20/2045, Notes to Pharmacist: isopropyl alcohol 0.7 ML/ML Medicated PadOriginal Medicationisopropyl alcohol 0.7 ML/ML Medicated Pad *Reorder from [employer] for eRx and Interaction Alerts*, Medication List reviewed and reconciled with the patient Objective: * Vitals: W t:208lbs, Wt-k.35 kg, Ht: 71.00 in, Ht-cm: 180.34 cm, BMI:29.01Index, Body Surface Area: 2.17. * Examination: P hysical Examination: General appearance: [...] - L85.1 3 . A therosclerosis of [place] arteries of extremities with intermittent claudication, bilateral legs - I70.213 4 . P ain in right foot - M79.671 5 . P ain in left foot - M79.672 Plan: * Treatment: 2. A cquired keratosis [keratoderma] palmaris et plantaris Notes: A total of 3 corns or calluses, as described in the note above, were cut and pared utilizing a #15 blade * Immunizations: Immunization record has been reviewed and updated. * Follow Up: 1 0 - 12 weeks (Reason: At-Risk Foot care, sooner if problems develop.) * Billing Information: * Visit Code: * Procedure Codes: * Electronic signature of TIMOTEO BARRAZA DPM on 07/27/2024 at 12:14 PM CDT Sign off status: Pending * Provider: Sundeep Barraza DPM Date: 0 07/24/2024 Generated for Mitchell tucker/Raj/Gregorioitting on: 0 07/27/2024 12:14 PM CDT History and Physical Notes * [...] Date last seen by Dr. Pardo was 06/2024., Initials mca Examination Category Sub-Category Detail Notes [...]
--- OUTSIDE RECORDS SUMMARY | 2024-07-27 12:15 | XMS_ITS | Data Portability ---
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 E66.9 Abdominal aortic aneurysm screening 824032348 Z13.6 Screening for malignant neoplasm of prostate 210923443 Z12.5 Benign pro static hyperplasia 295321447 N40.0 Serum crea tinine above reference range 921764193 R79.89 Vitamin D deficiency 347 85617 E55.9 [id number] MD Dereck Dickinson [address] [facility] [place] [address] 02/16/2022 10:33:23 02/18/2022 09:22:10 Essential hypertension 83384870 I10 Type 2 juanita betes mellitus 54799500 E11.9 pt has now restarted using insulin in obtaining better control of blood sugars [id number] MD Dereck Dickinson 14 IM [address] [facility] [place] [address] 07/07/2022 10:27:56 07/08/2022 15:41:07 Under care of relief man 210167252 Z76.[address] Beto Beckett Type 2 juanita betes mellitus 14043942 E11.9 pt has now restarted using insulin in obtaining better control of blood sugars Peripheral vascular disease 563498641 I73.9 followed by a specialist Essential hypertension 08142838 I10 well-contr olled Secondary erectile dysfunction 270619700 N52.39 Ex-smoker 1465791 Z87.89 1 since February 2022 Screening for malignant neoplasm of prostate 485456028 Z12.5 Vitamin D deficiency 347 93363 E55.9 Screening for malignant neoplasm of respiratory tract 275901891 Z12.2 [id number] MD Dereck Dickinson 14 IM [address] [facility] [place] [address] 10/20/2022 15:36:00 10/22/2022 12:35:44 Obesity 610267563 E66.9 Type 2 juanita betes mellitus 55510068 E11.9 increase levemir from 18 to 21 units Screening for malignant neoplasm of colon 540478482 Z12.11 screening colonoscop y was done on 01-06-2016 --to be repeated in three years--it was done at [facility] Screening for malignant neoplasm of prostate 692865712 Z12.5 PSA was WNL on Under care of relief man 280020469 Z76.[address] Beto Beckett [id number] MD Dereck Dickinson 14 IM [address] [facility] [place] [address] 02/04/2023 12:14:30 02/08/2023 16:04:15 Obesity 008851964 E66.9 Under care of relief man 052227238 Z76.[address] Beto Beckett Under care of warehouse engineer 397923942 Z76.89 Immunization advised 310 734689 Z71.9 pt was encouraged to consider the pneumovax 23 and the shingrix vaccinatio ns Ex-smoker 7510266 Z87.89 1 since February 2022 Type 2 juanita betes mellitus 41892996 E11.9 increase levemir from 18 to 21 units [id number] MD Dereck Dickinson 14 IM [address] [facility] [place] [address] 05/20/2023 13:50:53 05/25/2023 12:50:28 Obesity 680991369 E66.9 Essential hypertension 89301251 I10 Type 2 juanita betes mellitus 47047467 E11.9 pt is presently taking 24 units of levemir daily--Hgb A1c is better than at last check Ex-smoker 6125011 Z87.89 1 since February 2022 Under care of pan puller 947248497 Z76.89 Under care of relief man 919960001 Z76.[address] Beto Beckett [id number] MD Dereck Dickinson 14 IM [address] [facility] [place] [address] 08/26/2023 14:44:49 09/01/2023 15:01:22 Tetanus diphtheria and acellular pertussis vaccination declined 1182980689 4982031 Z28.20 Type 2 juanita betes mellitus 06298336 E11.9 pt is presently taking 24 units of levemir daily--Hgb A1c is better than at last check Under care of relief man 082346824 Z76.[address] Beto Beckett Benign ess ential hypertension 0394554 I10 [id number] MD Dereck Dickinson 14 IM [address] [facility] [address] [place] [address] [address] 2023 12:16:01 12/21/2023 10:41:21 Type 2 diabetes mellitus 73726899 E11.9 Due to increased Hgba1C, pioglitazo ne is now added. Dependence on continuous positive airway pressure ventilation 159772528 Z99.[address] Antonio Obesity 502946152 E66.9 Screening for malignant neoplasm of prostate 185808386 Z12.5 PSA was WNL on Screening for malignant neoplasm of colon 515587027 Z12.11 screening colonoscop y was done on 06-03-21--t o be repeated in five years--it was done at [facility] [id number] MD Dereck Dickinson 14 IM [address] [facility] [place] [address] 03/21/2024 11:05:07 03/27/2024 11:02:50 Administration of pneumococcal vaccine 69545994 Z23 Numbness of hand 0063390 04 R20.0 for 4 weeks now Under care of relief man 459064515 Z76.[address] Beto Beckett--pt has an upcoming appt with [place] in [place] Under care of pan puller 019053113 Z76.89 Type 2 juanita betes mellitus 04332830 E11.9 blood was recommende d today--pt prefers to wait until seen by nephrologi [facility] Concerns Section Related Observation LastModified by Organization Detai ls LastModified Time None Recorded Concern Status LastModified by Organization Details LastModified Time None Recorded Advance Directives Directive Y: Casey Jaimes Jr. Payers Encounter Date Sequence Insurance Name Policy Number Policy Reeder Covered Member ID Reeder Member ID Guarantor Name 05/20/2023 1 [employer] (MEDICARE REPLACEMENT/A DVANTAGE - POS) [id number] Casey Jaimes [id number] Casey Jaimes 08/26/2023 1 [employer] (MEDICARE REPLACEMENT/A DVANTAGE - POS) [id number] Casey Jaimes [id number] Casey Jaimes 2023 1 [employer] (MEDICARE REPLACEMENT/A DVANTAGE - POS) [id number] Casey Jaimes [id number] Casey Jaimes 03/21/2024 1 [employer] (MEDICARE REPLACEMENT/A DVANTAGE - POS) [id number] Casey Jaimes [id number] Casey aJson Theodore Notes Date Note Type Note Provider Name and Address Organization Details Recorded Time 05/20/2023 text/html 67y male past medical hx of diabetes, HTN, and secondary polycythemia.Home BS readings 113, 187. No changes in vision, or peripheral neuropathy sx. Compliant on blood pressure medications. Visited hematology one week ago with phlebotomy tx. Next appt with hematology is in 3 months. BP re-check today: 120/65 Jerome Walker MD Attn: Accounting,[address] [place], [address], [facility] - [facility] 05/24/2023 22:36:43 08/26/2023 text/html Pt presents for regular followup. Jerome Walker MD Attn: Accounting,[address] [facility], [place], [address], [place] [facility] 08/31/2023 08:15:21 2023 text/html Regular checkup. Jerome abdalla MD Attn: Accounting,[address] [place], [address], [place] 12/20/2023 14:51:31 03/21/2024 text/html Regular checkup. Jerome abdalla MD Attn: Accounting,[address], [place], [address], [facility] 03/27/2024 07:18:10
--- OUTSIDE RECORDS SUMMARY | 2024-07-27 12:15 | XMS_ITS ---
Author Organization [facility] Address [address] [place], [place] [id number] Care Team Providers Care General Foundry Worker Name Role Phone ESCOBAREddie TIMOTEO Unavailable [phone] Jerome Pardo Unavailable Unavailable REASON FOR VISIT [...] alcohol 0.7 ML/ML Medicated Pad *Reorder from [employer] for eRx and Interaction Alerts* 10/27/2021 12/20/2045 Active Encounters Encounter Location Date Provider Diagnosis [facility] [address] [place], [place] [id number] 01/24/2024 TIMOTEO BARRAZA Tinea unguium B35.1 ; Acquired keratosis [keratoderma] palmaris et plantaris L85.1 ; Atherosclerosis of w[place]ita arteries of extremities with intermittent claudication, bilateral [...] utilizing a #15 blade 01/24/2024 Atherosclerosis of [place]ich[place] arteries of extremities with intermittent claudication, bilateral [...] Name:TIMOTEO BARRAZA, 10:30:00 AM, [address], [address], [phone], Progress Notes * GURPREET CARTERZOOB:1955 ([age] yo M)Acc No.[id number]:01/24/2024 Patient: PATRICK KIRBY Provider: Sundeep Barraza DPM :1955 A ge:68 Y S ex:Male Date:01/24/2024 Address:[address] [facility] [place], [id number] Subjective: * Chief Complaints: * 1 . [...] nails, dry skin. ? * Medical History: M edical History Verified. * Family History: N o Family History documented.. * Social History: M igrated Social History: M igrated Social History: History of tobacco use : Current everyday tobacco user , Smoking Status : Current everyday tobacco user. * Medications: T aking isopropyl alcohol 0.7 ML/ML Medicated Pad , stop date 12/20/2045, Notes to Pharmacist: isopropyl alcohol 0.7 ML/ML Medicated PadOriginal Medicationisopropyl alcohol 0.7 ML/ML Medicated Pad *Reorder from [facility] for eRx and Interaction Alerts*, Medication List [...] extremities. ? Assessment: * Assessment: 1. T abilio edmondsonum - B35.1 (Primary) 2 . 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 A therosclerosis of wichita arteries of extremities with intermittent claudication, bilateral [...] develop.) * Billing Information: * Visit Code: 30205 Office Visit, Est Pt., Level 3. * Procedure Codes: * Electronic signature of TIMOTEO BARRAZA DPM on 07/27/2024 at 12:15 PM CDT Sign off status: Pending * Provider: Sundeep Barraza DPM Date: 1 Generated for Mitchell tucker/Raj/Radha on: 0 07/27/2024 12:15 PM CDT History and Physical Notes * [...]
--- OUTSIDE RECORDS SUMMARY | 2024-07-27 12:16 | XMS_ITS ---
Author Organization [facility] Address [address] [place], [place] [address] Care Team Providers Care Sales Agent Fire Insurance Name Role Phone MADI TIMOTEO Unavailable [phone] Jerome Pardo Unavailable Unavailable REASON FOR VISIT [...] alcohol 0.7 ML/ML Medicated Pad *Reorder from [employer] for eRx and Interaction Alerts* 10/27/2021 12/20/2045 Active Encounters Encounter Location Date Provider Diagnosis [facility] [address] [place], [place] [phone] 04/24/2024 TIMOTEO BARRAZA Tinea unguium B35.1 ; Acquired keratosis [keratoderma] palmaris et plantaris L85.1 ; Atherosclerosis of council arteries of extremities with intermittent claudication, bilateral [...] utilizing a #15 blade 04/24/2024 Atherosclerosis of council arteries of extremities with intermittent claudication, bilateral [...] Name:TIMOTEO BARRAZA, 10:30:00 AM, [address], [address], [phone], Progress Notes * GURPREET CARTERZOOB:1955 ([age] yo M)Acc No.[id number]:04/24/2024 Patient: PATRICK KIRBY Provider: Sundeep Barraza DPM :1955 A ge:68 Y S ex:Male Date:04/24/2024 Address:[address] [facility] [place], [id number] Subjective: * Chief Complaints: * Keshav larry [...] alcohol 0.7 ML/ML Medicated Pad *[facility] for eRx and Interaction Alerts*Medication List reviewed and reconciled with the patientTaking isopropyl alcohol 0.7 ML/ML Medicated Pad , stop date 12/20/2045, Notes to Pharmacist: isopropyl alcohol 0.7 ML/ML Medicated PadOriginal Medicationisopropyl alcohol 0.7 ML/ML Medicated Pad *Reorder from [facility] for eRx and Interaction Alerts*Medication List reviewed [...] - L85.1 3 . A therosclerosis of council arteries of extremities with intermittent claudication, bilateral [...] develop.) * Billing Information: * Visit Code: 47823 Office Visit, Est Pt., Level 3. * Procedure Codes: * TICE OFFICE ASSOCIATE Sign off status: Completed true * Provider: Sundeep Barraza DPM Date: 0 04/24/2024 Generated for Mitchell tucker/Raj/Radha on: 0 07/27/2024 12:16 PM CDT History and Physical Notes * [...]
--- OUTSIDE RECORDS SUMMARY | 2024-07-27 12:16 | XMS_ITS | Patient Health Record ---
Author Organization [facility] Address [address] [place], [place] [address] Care Team Providers Care Shank Paperer Name Role Phone TIMOTEO BARRAZA Unavailable [phone] Jerome Pardo Unavailable Unavailable Allergies No Known Allergies Reason For Referral No Information Medications Medication SIG (Take, Route, Frequency, Duration) Notes Start Date End Date Status isopropyl alcohol 0.7 ML/ML Medicated Pad isopropyl alcohol 0.7 ML/ML Medicated PadOriginal Medicationisopropyl alcohol 0.7 ML/ML Medicated Pad *Reorder from [employer] for eRx and Interaction Alerts* 10/27/2021 12/20/2045 Active Vital Signs Height-cm 180.34 cm 07/24/2024 Weight-kg 94.35 kg 07/24/2024 Height 71.00 in 07/24/2024 Weight 208 lbs 07/24/2024 BMI 29.01 kg/m2 07/24/2024 Encounters Encounter Location Date Provider Diagnosis [facility] [address] [place] [id number] 08/02/2023 TIMOTEO BARRAZA Tinea unguium B35.1 ; Acquired keratosis [keratoderma] palmaris et plantaris L85.1 ; Atherosclerosis of pala arteries of extremities with intermittent claudication, bilateral legs I70.213 ; Type 2 diabetes mellitus with other circulatory complications E11.59 ; Pain in right toe(s) M79.674 and Pain in left toe(s) M79.675 [facility] [address] [place] [id number] 10/25/2023 TIMOTEO SNOOK Tinea unguium B35.1 ; Acquired keratosis [keratoderma] palmaris et plantaris L85.1 ; Atherosclerosis of pala arteries of extremities with intermittent claudication, bilateral legs I70.213 ; Type 2 diabetes mellitus with other circulatory complications E11.59 ; Pain in right toe(s) M79.674 and Pain in left toe(s) M79.675 [facility] [address] [place] [id number] 01/24/2024 TIMOTEO SNOOK Tinea unguium B35.1 ; Acquired keratosis [keratoderma] palmaris et plantaris L85.1 ; Atherosclerosis of pala arteries of extremities with intermittent claudication, bilateral legs I70.213 ; Pain in right foot M79.671 and Pain in left foot M79.672 [facility] [address] [place] [id number] 07/24/2024 TIMOTEO SNOOK Tinea unguium B35.1 ; Acquired keratosis [keratoderma] palmaris et plantaris L85.1 ; Atherosclerosis of pala arteries of extremities with intermittent claudication, bilateral legs I70.213 ; Pain in right foot M79.671 and Pain in left foot M79.672 [facility] [address] [place] [id number] 04/24/2024 TIMOTEO SNOOK Tinea unguium B35.1 ; Acquired keratosis [keratoderma] palmaris et plantaris L85.1 ; Atherosclerosis of pala arteries of extremities with intermittent claudication, bilateral [...] and pared utilizing a #15 blade 07/24/2024 Tinea unguium (ICD-10 - B35.1) Nails [...] utilizing a #15 blade 07/24/2024 Atherosclerosis of pala arteries of extremities with intermittent claudication, bilateral legs (ICD-10 - I70.213) 04/24/2024 Atherosclerosis of pala arteries of extremities with intermittent claudication, bilateral legs (ICD-10 - I70.213) 01/24/2024 Atherosclerosis of pala arteries of extremities with intermittent claudication, bilateral legs (ICD-10 - I70.213) 08/02/2023 Atherosclerosis of pala arteries of extremities with intermittent claudication, bilateral legs (ICD-10 - I70.213) 10/25/2023 Atherosclerosis of pala arteries of extremities with intermittent claudication, bilateral legs (ICD-10 - I70.213) 08/02/2023 Type 2 diabetes mellitus with other circulatory complications (ICD-10 - E11.59) 10/25/2023 Type 2 diabetes mellitus with other circulatory complications (ICD-10 - E11.59) 01/24/2024 Pain in right foot (ICD-10 - M79.671) 04/24/2024 Pain in right foot (ICD-10 - M79.671) 07/24/2024 Pain in right foot (ICD-10 - M79.671) 07/24/2024 Pain in left foot (ICD-10 - M79.672) 04/24/2024 Pain in left foot (ICD-10 - M79.672) 01/24/2024 Pain in left foot (ICD-10 - M79.672) 10/25/2023 Pain in right toe(s) (ICD-10 - M79.674) 08/02/2023 Pain in right toe(s) (ICD-10 - M79.674) 08/02/2023 Pain in left toe(s) (ICD-10 - M79.675) 10/25/2023 Pain in left toe(s) (ICD-10 - M79.675) Plan Of Treatment Next Appt Details Provider Name:TIMOTEO BARRAZA, 10:30:00 AM, [address], [address], [phone], Insurance Providers Payer Name Payer Address Payer Phone Subscriber Number Group Number Insured Name Patient Relationship to Insured Coverage Start Date Coverage End Date [facility] [address] [place] [id number] PATRICK VÁZQUEZ Self - patient is the insured
== END 2024-07-27 10:48 | disposition home or self-care (01) ==
PROVIDERS: PCP Family Medicine; Visit Provider Family Medicine
DX: M25.511 Pain in right shoulder (principal)
CPT/HCPCS: 73030

== ENCOUNTER 2024-12-12 12:40 | Outpatient (CLI) | payer MEDICARE, SELFPAY ==
[2024-12-12 13:14] LABS: Hematocrit 50.9 % (42.0-52.0); Hemoglobin 16.0 g/dL (14.0-18.0); Immature Granulocyte Percent A 0.4 % (0-0.5); Lymphocytes Absolute Auto 1.40 K/mm3 (0.9-3.2); Mean Corpuscular HGB Conc 31.4 g/dl (32-36); Mean Corpuscular Hemoglobin 28.8 pg (26-34); Mean Corpuscular Volume 91.5 fl (80-100); Nucleated Red Blood Cells Absolute Auto 0.000 K/mm3 (0.0-0.012); Nucleated Red Blood Cells Perc 0.0 % (0.0-0.2); Platelet Count Result 208 k/mm3 (150-375); Red Blood Count 5.56 M/mm3 (4.6-6.20); White Blood Count 5.6 K/mm3 (4.5-10.0)
--- OUTSIDE RECORDS SUMMARY | 2024-12-12 14:02 | XMS_ITS | Encounter Summary ---
Author Organization [facility] Address [address] [place] [address] Care Team Providers Care Plastic Block Boiler Reliner Name Role Phone Jerome Pardo MD Primary Care Provider Encounter Details Date Type Department Care Team (Late st Contact Info) Description 09/18/2019 Lab Requisition [facility] [address] [place] [address] Bobby Streeter MD Social History Tobacco Use Types Packs/Day Years Used Date Smoking Tobacco: Never Assessed Sex and Gender Information Value Date Recorded Sex Assigned at Not on file Legal Sex Male 7:47 PM FAGOT HEATER Gender Identity Not on file Sexual Orientation [...] Not detected, Invalid 09/18/2019 5:21 PM CDT [facility] Microbiology SPECIMEN FROM NASOPHARYNGEAL STRUCTURE / Unknown Collection / Unknown 09/17/2019 7:52 PM CDT 09/18/2019 9:15 AM CDT Narrative [facility] - 09/18/2019 5:21 PM CDT This Real Time RT-PCR assay was developed and its performance characteristics determined by [facility]. This test has been [...] LAB - MICROBIOLOGY ORDERABL ES Final Result [facility] [address] [place] [address], [facility] [phone] documented in this encounter Visit Diagnoses Not on filedocumented in this encounter Additional Health Concerns Infection Onset Date Last Indicated Resolved Time COVID-19 Under Investigation 09/18/2019 09/17/2019 09/18/2019 5:21 PM CDT documented as of this encounter Care Teams Plastic Block Boiler Reliner Relationship Specialty Start Date End Date Jerome Pardo MD [address] [place] [phone] PCP - General 06/01/19 documented as of this encounter
--- OUTSIDE RECORDS SUMMARY | 2024-12-12 14:02 | XMS_ITS | Patient Health Record ---
Author Organization [facility] Address [address] [place] [place], [place] [id number] Care Team Providers Care Meat Dresser Name Role Phone SHANKAR TIMOTEO Unavailable [phone] Jerome Pardo Unavailable Unavailable Allergies No Known Allergies Reason For Referral No Information Medications Medication SIG (Take, Route, Frequency, Duration) Notes Start Date End Date Status isopropyl alcohol 0.7 ML/ML Medicated Pad isopropyl alcohol 0.7 ML/ML Medicated PadOriginal Medicationisopropyl alcohol 0.7 ML/ML Medicated Pad *Reorder from [employer] for eRx and Interaction Alerts* 10/27/2021 12/20/2045 Active Immunizations Vaccine Route Administration Date Status Comme nts Influenza, quadrivalent, spl it virus Unknown 01/23/2015 Administered Moderna Covid-19 Vaccine 1st dose Unknown 07/04/2020 Administered Moderna Covid-19 Vaccine 1st dose Unknown 08/01/2020 Administered Pneumococcal conjugate PCV 13 Unknown 03/10/2018 Admini stered Tdap Unknown 03/21/2024 Not Administered Vital Signs Height-cm 180.34 cm 10/23/2024 Weight-kg 94.35 kg 10/23/2024 Height 71.00 in 10/23/2024 Weight 208 lbs 10/23/2024 BMI 29.01 kg/m2 10/23/2024 Encounters Encounter Location Date Provider Diagnosis [facility] [place] [address] [place], [place] [id number] 01/24/2024 TIMOTEO BARRAZA Tinea unguium B35.1 ; Acquired keratosis [keratoderma] palmaris et plantaris L85.1 ; Atherosclerosis of picayune arteries of extremities with intermittent claudication, bilateral legs I70.213 ; Pain in right foot M79.671 and Pain in left foot M79.672 [facility] [place] [address] [place] [id number] 04/24/2024 TIMOTEO SNOOK Tinea unguium B35.1 ; Acquired keratosis [keratoderma] palmaris et plantaris L85.1 ; Atherosclerosis of picayune arteries of extremities with intermittent claudication, bilateral legs I70.213 ; Pain in right foot M79.671 and Pain in left foot M79.672 [facility] [address] [place] [id number] 07/24/2024 TIMOTEO SNOOK Tinea unguium B35.1 ; Acquired keratosis [keratoderma] palmaris et plantaris L85.1 ; Atherosclerosis of picayune arteries of extremities with intermittent claudication, bilateral legs I70.213 ; Pain in right foot M79.671 and Pain in left foot M79.672 [facility] [place] [address] [place] [id number] 10/23/2024 TIMOTEO SNOOK Tinea unguium B35.1 ; Acquired keratosis [keratoderma] palmaris et plantaris L85.1 ; Atherosclerosis of picayune arteries of extremities with intermittent claudication, bilateral [...] cut and pared utilizing a #15 blade 10/23/2024 Tinea unguium (ICD-10 - B35.1) Nails 1-5 Bilateral were debrided extensively with nail nippers and emery board, reducing length and girth to pink healthy tissue with any subungual debris and necrotic tissue removed 10/23/2024 Acquired keratosis [keratoderma] palmaris et plantaris (ICD-10 - L85.1) A total of 3 corns or calluses, as described in the note above, were cut and pared utilizing a #15 blade 10/23/2024 Atherosclerosis of picayune arteries of extremities with intermittent claudication, bilateral legs (ICD-10 - I70.213) 07/24/2024 Atherosclerosis of picayune arteries of extremities with intermittent claudication, bilateral legs (ICD-10 - I70.213) 04/24/2024 Atherosclerosis of picayune arteries of extremities with intermittent claudication, bilateral legs (ICD-10 - I70.213) 01/24/2024 Atherosclerosis of picayune arteries of extremities with intermittent claudication, bilateral legs (ICD-10 - I70.213) 01/24/2024 Pain in right foot (ICD-10 - M79.671) 04/24/2024 Pain in right foot (ICD-10 - M79.671) 07/24/2024 Pain in right foot (ICD-10 - M79.671) 10/23/2024 Pain in right foot (ICD-10 - M79.671) 10/23/2024 Pain in left foot (ICD-10 - M79.672) 07/24/2024 Pain in left foot (ICD-10 - M79.672) 04/24/2024 Pain in left foot (ICD-10 - M79.672) 01/24/2024 Pain in left foot (ICD-10 - M79.672) Plan Of Treatment Next Appt Details Provider Name:TIMOTEO BARRAZA, 10:00:00 AM, [address], [place], [place], [id number], Insurance Providers Payer Name Payer Address Payer Phone Subscriber Number Group Number Insured Name Patient Relationship to Insured Coverage Start Date Coverage End Date [facility] [address] [place] [id number] PATRICK VÁZQUEZ Self - patient is the insured Medical (General) History Medical History History ICD Code Diabetic
--- OUTSIDE RECORDS SUMMARY | 2024-12-12 14:02 | XMS_ITS | Clinical Summary ---
Author Organization [facility] Address [address], [facility] [address] [place] [address] Phone Care Team Providers Care Sales Clerk Food Name Role Phone Jerome Pardo MD Primary Care Provider [phone] Krish Donaldson DPM Unavailable [phone] Allergies No known active allergies Medications pravastatin (PRAVACHOL) 20 MG Tablet Take 20 mg by mouth every morning. Active RELION PEN NEEDLES 32G X 4 MM [facility] [place] 6 Active triamterene-hydr ochlorothiazide (DYAZIDE) 37.5-25 MG Capsule every morning. 6 Active amLODIPine (NORVASC) 10 MG Tablet every morning. 9 Active glipiZIDE (GLUCOTROL) 10 MG Tablet every morning. 9 Active PRODIGY NO CODING BLOOD GLUC Strip 9 Active PRODIGY TWIST TOP LANCETS 28G [facility] [place] 9 Active JANUVIA 100 MG Tablet every [...] 1:00 PM CDT Height 180.3 cm (5' 11) 09/13/2019 1:00 PM CDT Body Mass Index 29.29 09/13/2019 1:00 PM CDT Plan of Treatment Health Maintenance Due Date Last Done Comments Diabetes: Eye Exam 1954 Diabetes: Foot Exam 1955 Hepatitis C Virus (HCV) Screening 1955 TdaP Immunization 1954 Diabetes: Nephropathy Screening 1972 Cologuard 12/17/1999 Immunochemical Fecal Occult Blood 12/17/1999 Zoster Immunization (1 of 2) 2004 PSA Discussion 2009 Respiratory Syncytial Virus (RSV) Immunization (Adult) (1 - Risk 60-74 years 1-dose series) 2014 Colonoscopy 09/19/2022 09/20/2019, 10/06/2015, 02/18/2015 Colorectal Cancer Screening 09/19/2022 Pneumococcal Immunization (50+ years) (3 of 3 - PCV20 or PCV21) 03/10/2023 03/10/2018, 04/14/2013 Influenza Immunization (#1) 2024 01/23/2015 SARS-COV-2 Immunization ( season) 2024 03/27/2021, 08/01/2020, 07/04/2020 Diabetes: Hemoglobin A1c 04/07/2025 025, 04/27/2024, 08/04/2023, Additional history exists Pneumococcal Immunization Combined Discontinued 03/10/2018, 04/14/2013 Hepatitis B Immunization Aged Out No longer eligible based on patient's age to complete this topic Human Papillomavirus (HPV) Immunization Aged Out No longer eligible based on patient's age to complete this topic Meningococcal Immunization (ACWY) Aged Out No longer eligible based on patient's age to complete this topic Rotavirus Immunization Aged Out No lo nger eligible based on patient's age to complete this topic Insurance MEDICARE C [employer] MEDICARE Care Teams Sales Clerk Food Relationship Specialty Start Date End Date Jerome Pardo MD [address] [place] [address] [place] [address] PCP - General Family Medicine 02/18/15 Krish Donaldson DPM [address] [place] [address] [place] [address] Podiatry 01/07/16
--- OUTSIDE RECORDS SUMMARY | 2024-12-12 14:02 | XMS_ITS | Clinical Summary ---
Author Organization [facility] Address [address] [address] Phone Care Team Providers Care Director Geothermal Operations Name Role Phone Unavailable Primary Care Provider [...] day Active Cholecalciferol (Vitamin D3) 1.25 MG (32155 UT) tablet Take 1 tablet by mouth per week Active insulin detemir (LEVEMIR) 100 UNIT/ML injection Inject 26 Units under the skin every night Active sildenafil (VIAGRA) 100 MG tablet Take 100 mg by mouth 1 (one) time each day if needed for erectile dysfunction Active famotidine (PEPCID) 40 MG tablet TAKE 1 TABLET BY MOUTH NIGHTLY 90 tablet Active Active Problems Problem Noted Date Diagnosed Date Osteoarthritis 10/10/2024 Secondary polycythemia 08/10/2023 Type 2 diabetes mellitus 04/28/2022 Ex-cigarette smoker 03/17/2022 Chronic kidney disease stage 3B 03/17/2022 Abdominal aortic aneurysm without rupture 2021 Peripheral vascular disease 03/17/2022 Vitamin D deficiency 03/12/2022 Gastroesophageal reflux disease 03/12/2022 Hyperlipidemia 10/26/2019 Essential hypertension 10/02/2019 Obstructive sleep apnea syndrome 10/02/2019 Encounters Date Type Department Care Team Description 10/15/2024 Refill [facility] [address] [phone] Beto Beckett MD 10/10/2024 10:15 AM CDT Office Visit [facility] [address] [phone] Beto Beckett MD Chronic kidney disease stage 3B (HCC) (Primary Dx); Essential hypertension; Type 2 diabetes mellitus, not otherwise specified (HCC); Obstructive sleep apnea syndrome; Gastroesophageal reflux disease; Peripheral vascular disease (HCC); Mixed hyperlipidemia; Secondary polycythemia; Primary generalized osteoarthritis 10/09/2024 Orders Only [facility] [address] [place] [phone] Hellen Montoya Essential hypertension (Primary Dx); Stage 3a chronic kidney disease (HCC) 10/05/2024 Orders Only [facility] [address] [place] [address] Beto Beckett MD from Last 3 Months [...] Sign Reading Time Taken Comments Blood Pressure 140/70 10/10/2024 10:22 AM CDT Pulse 69 10/10/2024 10:22 AM CDT Temperature 36.7 C (98 F) 10/10/2024 10:22 AM CDT Respiratory Rate 18 10/10/2024 10:22 AM CDT Oxygen Saturation 97% 10/10/2024 10:22 AM CDT Inhaled Oxygen Concentration - - Weight 109 kg (240 lb) 10/10/2024 10:22 AM CDT Height 180.3 cm (5' 11) 08/10/2023 10:17 AM CDT Body Mass Index 33.47 08/10/2023 10:17 AM CDT Plan of Treatment Upcoming Encounters Date Type Department Care Team (Late st Contact Info) Description 04/17/2025 10:15 AM INDUSTRIAL SALES REPRESENTATIVE Office Visit [facility], [facility] [address] [facility] [address] [place] [phone] Beto Beckett MD [address] [phone] Health Maintenance Due Date Last Done Comments Colorectal Cancer Screening: Annual FOBT 12/17/2003 Colorectal Cancer Screening: Colonoscopy 12/17/2003 Colorectal Cancer Screening: Sigmoidoscopy 12/17/2003 Pneumococcal Vaccine: 50+ Years (2 of 2 - PPSV23, PCV20, or PCV21) 05/05/2018 03/10/2018 Diabetes: Ophthalmology Exam 01/29/2022 Diabetes: Pedal Pulse Checked 01/29/2022 Diabetes: Sensory Foot Exam 01/29/2022 Diabetes: Visual Foot Exam 01/29/2022 Influenza Vaccine (#1) 2024 01/23/2015 Diabetes: Hemoglobin A1C 01/05/2025 025, 04/27/2024, 08/04/2023, Additional history exists Hepatitis B Vaccine Aged Out No longe r eligible based on patient's age to complete this topic Procedures Procedure Name Priority Date/Time Associated Diagnosis Comments SPECIMEN STATUS REPORT Routine 11:39 AM CDT PTH, INTACT Routine 10/05/2024 11:39 AM CDT PHOSPHATE ( PHOSPHORUS) Routine 10/05/2024 11:39 AM CDT VITAMIN D 25 HYDROXY Routine 10/05/2024 11:39 AM CDT HEMOGLOBIN A1C Routine 10/05/2024 11:39 AM CDT PROTEIN / CREATININE RATIO, URINE Routine 10/05/2024 11:39 AM CDT LIPID PANEL Routine 10/05/2024 11:39 AM CDT URINALYSIS WITH MICROSCOPIC Routine 10/05/2024 11:39 AM CDT COMPREHENSIVE METABOLIC PANEL Routine 10/05/2024 11:39 AM CDT CBC AND DIFFERENTIAL Routine 10/05/2024 11:39 AM CDT MICROSCOPIC EXAMINATION - DO NOT USE Routine 10/05/2024 11:39 AM CDT from Last 3 Months Results * SPECIMEN STATUS REPORT (10/05/2024 11:39 AM CDT) Specimen Status Comment [facility] Comment: Ambig Abbrev CMP14 Default Ambig Abbrev CMP14 Default A hand-written panel/profile was received from your office. In accordance with the [facility] Ambiguous Test Code Policy dated October 2002, we have completed your order by using the closest currently or formerly recognized AMA panel. We have assigned Comprehensive Metabolic Panel (14), Test Code #920904 to this request. If this is not the testing you wished to receive on this specimen, please contact the [facility] Client Inquiry/Technical Services Department to clarify the test order. We appreciate your business. Ambig Abbrev LP Default Ambig Abbrev LP Default A hand-written panel/profile was received from your office. In accordance with the [facility] Ambiguous Test Code Policy dated October 2002, we have completed your order by using the closest currently or formerly recognized AMA panel. We have assigned Lipid Panel, Test Code #175641 to this request. If this is not the testing you wished to receive on this specimen, please contact the [facility] Client Inquiry/Technical Services Department to clarify the test order. We appreciate your business. 10/05/2024 11:3 9 AM CDT 10/04/2024 11:00 PM CDT Beto Beckett MD LAB BLOOD ORDERABLES Final R esult [facility] [address] [place] [phone] * (ABNORMAL) Microscopic Examination (10/05/2024 11:39 AM CDT) WBC, Urine 11-30(A) 0 - 5 /hpf [facility] RBC, Urine None seen 0 - 2 /hpf [facility] Squamous Epithelial, Urine 0-10 0 - 10 /hpf [facility] Casts None seen None seen /lpf [facility] Bacteria, Urine Moderate(A ) None seen/Few [facility] 10/05/2024 11:3 9 AM CDT 10/04/2024 11:00 PM CDT us Beto Beckett MD LAB MICROBIOLOGY - GENERAL O RDERABLES Final Result Performing Organization Address City/[facility]/ZIP Co de Phone Number [facility] [address] [place] [address] * (ABNORMAL) Protein, Total, Random Urine w/Creatinine (Protein/Creat Ratio) (10/05/2024 11:39 AM CDT) Creatinine, Ur 55.9 Not Estab. mg/dL [facility] Protein, Ur 32.7 Not Estab. mg/dL [facility] Urine Protein/Creati nine Ratio 585(H) 0 - 200 mg/g creat [facility] 10/05/2024 11:3 9 AM CDT 10/04/2024 11:00 PM CDT Beto Beckett MD LAB URINE ORDERABLES Final R esult Performing Organization Address City/[facility]/ZIP Co de Phone Number [facility] [address] [place] [address] * (ABNORMAL) Vitamin D 25 Hydroxy (10/05/2024 11:39 AM CDT) Vitamin D, 25-OH, Total 24.5(L) 30.0 - 100.0 ng/mL [facility] Comment: Vitamin D deficiency has been defined by the [place] of Medicine and an Endocrine Society practice guideline as a level of serum 25-OH vitamin D less than 20 ng/mL (1,2). The Endocrine Society went on to further define vitamin D insufficiency as a level between 21 and 29 ng/mL (2). 1. IOM ([place] of Medicine). 2010. Dietary reference intakes for calcium and D. [place]: The National Academies Press. 2. Emil MF, Delma ROSS, Robyn STONE, et al. Evaluation, treatment, and prevention of vitamin D deficiency: an Endocrine Society clinical practice guideline. JCEM. 2010; 96(7):1911-30. 10/05/2024 11:3 9 AM CDT 10/04/2024 11:00 PM CDT Beto Beckett MD LAB BLOOD ORDERABLES Final R esult [facility] [address] [place] [phone] * (ABNORMAL) Urinalysis with microscopic (10/05/2024 11:39 AM CDT) Pathologist [facility] Specific [place], Urine 1.016 1.005 - 1.030 [facility] pH Urine 6.5 5.0 - 7.5 [facility] Color, Urine Yellow Yellow [facility] Appearance Urine Clear Clear [facility] WBC Esterase Urine 2+(A) Negative [facility] Protein, Ur 1+(A) Negative/Tra ce [facility] Glucose, Ur Negative Negative [facility] Ketones, Urine Negative Negative [facility] Blood Urine Negative Negative [facility] Bilirubin Urine Negative Negative [facility] Urobilinogen Urine 0.2 0.2 - 1.0 mg/dL [facility] Nitrite, Urine Negative Negative [facility] Microscopic Examination See below: [facility] Comment:Microscopic was obye cated and was performed. 10/05/2024 11:3 9 AM CDT 10/04/2024 11:00 PM CDT us Beto Beckett MD LAB URINE ORDERABLES Final R esult [facility] [address] [place] [address] * (ABNORMAL) CBC and Differential (10/05/2024 11:39 AM CDT) [facility] WBC 5.0 3.4 - 10.8 x10E3/uL [facility] RBC 5.79 4.14 - 5.80 x10E6/uL [facility] Hemoglobin 17.2 13.0 - 17.7 g/dL [facility] Hematocrit 53.3(H) 37.5 - 51.0 % [facility] MCV 92 79 - 97 fL [facility] MCH 29.7 26.6 - 33.0 pg [facility] MCHC 32.3 31.5 - 35.7 g/dL [facility] RDW 14.9 11.6 - 15.4 % [facility] Platelets 182 150 - 450 x10E3/uL [facility] Neutrophils Relative 69 Not Estab. % [facility] Lymphocytes Relative 20 Not Estab. % [facility] Monocytes 9 Not Estab. % [facility] Eosinophils Relative 1 Not Estab. % [facility] Basophils Relative 1 Not Estab. % [facility] Neutrophils Absolute 3.4 1.4 - 7.0 x10E3/uL [facility] Lymphocytes Absolute 1.0 0.7 - 3.1 x10E3/uL [facility] Monocytes Absolute 0.4 0.1 - 0.9 x10E3/uL [facility] Eosinophils Absolute 0.1 0.0 - 0.4 x10E3/uL [facility] Basophils Absolute 0.1 0.0 - 0.2 x10E3/uL [facility] Immature Granulocytes 0 Not Estab. % [facility] Immature Grans (Absolute) 0.0 0.0 - 0.1 x10E3/uL [facility] 10/05/2024 11:3 9 AM CDT 10/04/2024 11:00 PM CDT us Beto Beckett MD LAB BLOOD ORDERABLES Final R esult Performing Organization Address City/[facility] Co de Phone Number [facility] [address] [place] [address] * Phosphorus (10/05/2024 11:39 AM CDT) Phosphorus 3.2 2.8 - 4.1 mg/dL [facility] 10/05/2024 11:3 9 AM CDT 10/04/2024 11:00 PM CDT us Beto Beckett MD LAB BLOOD ORDERABLES Final R esult Performing Organization Address [facility] Co de Phone Number [facility] [address] [place] [address] * (ABNORMAL) PTH, Intact (10/05/2024 11:39 AM CDT) PTH 67(H) 15 - 65 pg/mL [facility] 10/05/2024 11:3 9 AM CDT 10/04/2024 11:00 PM CDT us Beto Beckett MD LAB BLOOD ORDERABLES Final R esult Performing Organization Address City/[facility] Co de Phone Number [facility] [address] [place] [address] * (ABNORMAL) Hemoglobin A1c (10/05/2024 11:39 AM CDT) Hemoglobin A1C 6.6(H) 4.8 - 5.6 % [facility] Comment: Prediabetes: 5.7 - 6.4 Diabetes: >6.4 Glycemic control for adults with diabetes: <7.0 10/05/2024 11:3 9 AM CDT 10/04/2024 11:00 PM CDT Beto Beckett MD LAB BLOOD ORDERABLES Final R esult Performing Organization Address City/[facility] Co de Phone Number [facility] [address] [place] [address] * (ABNORMAL) Lipid panel (10/05/2024 11:39 AM CDT) Cholesterol 184 100 - 199 mg/dL [facility] Triglycerides 80 0 - 149 mg/dL [facility] HDL 64 >39 mg/dL [facility] VLDL Cholesterol Kevon 15 5 - 40 mg/dL [facility] LDL Calculated 105(H) 0 - 99 mg/dL [facility] 10/05/2024 11:3 9 AM CDT 10/04/2024 11:00 PM CDT Beto Beckett MD LAB BLOOD ORDERABLES Final R esult Performing Organization Address City/[facility] Co de Phone Number [facility] [address] [place] [address] * (ABNORMAL) Comprehensive Metabolic Panel (10/05/2024 11:39 AM CDT) Glucose 135(H) 70 - 99 mg/dL [facility] BUN 25 8 - 27 mg/dL [facility] Creatinine 1.68(H) 0.76 - 1.27 mg/dL [facility] eGFR CKD-EPI CR 2020 44(L) >59 mL/min/1.7 3 [facility] BUN/Creatinine Ratio 15 10 - 24 [facility] Sodium 135 134 - 144 mmol/L [facility] Potassium 4.2 3.5 - 5.2 mmol/L [facility] Chloride 101 96 - 106 mmol/L [facility] Bicarbonate (CO2) 15(L) 20 - 29 mmol/L [facility] Calcium 9.7 8.6 - 10.2 mg/dL [facility] Total Protein 7.8 6.0 - 8.5 g/dL [facility] Albumin 4.4 3.9 - 4.9 g/dL [facility] Globulin 3.4 1.5 - 4.5 g/dL [facility] Total Bilirubin 0.6 0.0 - 1.2 mg/dL [facility] Alkaline Phosphatase 112 44 - 121 IU/L [facility] AST (SGOT) 24 0 - 40 IU/L [facility] ALT (SGPT) 21 0 - 44 IU/L [facility] 10/05/2024 11:3 9 AM CDT 10/04/2024 11:00 PM CDT Beto Beckett MD LAB BLOOD ORDERABLES Final R esult [facility] [address] [place] [address] from Last 3 Months Insurance [employer]
--- OUTSIDE RECORDS SUMMARY | 2024-12-12 14:02 | XMS_ITS | Clinical Summary ---
Author Organization [facility] Address [address] [place] [address] Care Team Providers Care Garment Manufacturer Name Role Phone Jerome Pardo MD Primary Care Provider [phone] Source Comments [facility],non-owned Affiliates and Associated Physician Practices is amultiple site organization consisting of ambulatory clinics and hospital sitesin [place], [place], [place] and [place]. This disclosure is being madepursuant to the Care Everywhere program and may not contain all information available regarding this patient. 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
--- OUTSIDE RECORDS SUMMARY | 2024-12-12 14:02 | XMS_ITS | Clinical Summary ---
Author Organization [facility] Address [address] [place] [address] Care Team Providers Care Ladle Repairer Name Role Phone Jerome Pardo MD Primary [...] Encounters Date Type Department Care Team Description 12/11/2024 Orders Only [facility] Oncology and Hematology - [address] [place] [phone] Asim Armendariz MD Polycythemia, secondary 12/05/2024 External Device Data STL ABSTRACTION Provider, Abstract 12/05/2024 External Device Data STL ABSTRACTION Provider, Abstract 11/29/2024 External Device Data STL ABSTRACTION Provider, Abstract 11/28/2024 Orders Only [facility] Oncology and Hematology - [address] [place] [phone] Asim Armendariz MD Polycythemia, secondary (Primary Dx) 11/14/2024 Orders Only [facility] Oncology and Hematology - [place] [place] [phone] Asim Armendariz MD 10/12/2024 Telephone [facility] Oncology and Hematology - [address] Asim Armendariz MD Lab Results from Last 3 Months Family History Medical [...] on file 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 [facility] [address] [place] [address] Asim Armendariz MD [address] [facility] [address] [place] [address] Health Maintenance Due Date Last [...] 50+ YEA RS (2 of 2 - PPSV23, PCV20, or PCV21) 05/05/2018 03/10/2018 Abdominal Aortic Aneurysm (A AA) Screening 12/17/2019 Medicare Advantage (PR) Preventative Visit/Annual Wellness Visit 04/05/2024 INFLUENZA VACCINE (#1) 2024 01/23/2015 COVID-19 Vaccine (3 - 2024-2 6 season) 2024 08/01/2020, 07/04/2020 DIABETES HBA1C Q 6 MONTHS 04/07/20252024, 04/27/2024, 08/04/2023, Additional history exists COLORECTAL SCREENING 06/04/2031 06/03/2021, 06/02/2021, 09/20/2019 Colorectal Cancer Screening 06/04/2031 Procedures Procedure Name Priority Date/Time Associated Diagnosis Comments CBC WITH AUTODIFFERENTIAL Routine 2024 4:16 PM CDT from Last 3 Months Results * CBC WITH AUTODIFFERENTIAL (11/14/2024 4:16 PM CDT) Blood us Asim Armendariz MD HEMATOLOGY ORDERABLES Final Res ult from Last 3 Months Insurance [facility] MCR Care Teams Ladle Repairer Relationship Specialty Start Date End Date Jerome Pardo MD [address] [place] [phone] PCP - General Family Practice 05/06/23
--- OUTSIDE RECORDS SUMMARY | 2024-12-12 14:02 | XMS_ITS | Encounter Summary ---
Author Organization [facility] [employer] Address [address] [place] [address] Care Team Providers Care Community Outreach Director Name Role Phone Jerome Pardo MD Primary Care Provider + Encounter Details Date Type Department Care Team (Late st Contact Info) Description 12/11/2024 Orders Only [facility] Oncology and Hematology - [place] [address] [place] [address] Asim Armendariz MD [address] [place], [place] [address]RingMD [address] [place] [phone] Polycythemia, secondary Social History Tobacco Use Types Packs/Day Years Used Date Smoking Tobacco: Former Cigarettes 1 25 Smokeless Tobacco: Never Alcohol Use Standard Drinks/Week Comments Never 0 (1 standard drink = 0.6 oz pur e alcohol) Sex and Gender Information Value Date Recorded Sex Assigned at Not on file 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 [employer] [address] [place] [phone] documented as of this encounter Visit Diagnoses Diagnosis Polycythemia, secondary documented in this encounter Care Teams Community Outreach Director Relationship Specialty Start Date End Date Jerome Pardo MD [address] [phone] PCP - General Family Practice 05/06/23 documented as of this encounter
== END 2024-12-12 12:41 | disposition home or self-care (01) ==
PROVIDERS: PCP Family Medicine; Visit Provider Internal Medicine Hematology & Oncology
DX: D75.1 Secondary polycythemia (principal)
CPT/HCPCS: 36415; 85025

== ENCOUNTER 2025-01-10 14:02 | Outpatient (CLI) | payer MEDICARE, SELFPAY ==
--- NOTE | ~2025-01-10 | MR_ITS ---
EXAMINATION: MR shoulder RT wo con DATE: 01/10/2025 14:49 INDICATION: Right shoulder pain. TECHNIQUE: Magnetic resonance imaging (MRI) of the right shoulder was performed without intravenous contrast. Sequences included axial PD-weighted FS FSE, coronal oblique PD-weighted FS FSE and T2-weighted FS FSE, and sagittal oblique T2-weighted FS FSE and T1-weighted FSE. COMPARISON: None. FINDINGS: Coracoacromial arch: The acromion undersurface is curved in morphology (type II). There is severe acromioclavicular joint osteoarthritis including inferiorly directed osteophytes. Subacromial spurring is noted. There is mild subacromial/subdeltoid bursitis. Rotator cuff: There is moderate supraspinatus tendinopathy and mild infraspinatus tendinopathy. There is an articular sided partial thickness tear of supraspinatus tendon measuring 4 mm anterior to posterior by 3 mm proximal to distal by 50% tendon thickness. Teres minor tendon is normal. There is moderate subscapularis tendinopathy. There is no asymmetric fatty atrophy of the rotator cuff muscle bellies. Biceps tendon and glenoid labrum: Biceps tendon is in bicipital groove. There is a partial tear of biceps tendon. There is degeneration of the glenoid labrum without well-defined tear. Fluid: There is a small glenohumeral joint effusion. Bones/cartilage: There is deep partial-thickness cartilage loss of humeral head and glenoid. Osteophytes are noted. IMPRESSION: 1. Moderate rotator cuff tendinopathy with articular sided partial thickness tear of supraspinatus tendon. 2. Moderate glenohumeral joint chondrosis. 3. Severe acromioclavicular joint osteoarthritis. 4. Partial tear of biceps tendon. 5. Small glenohumeral joint effusion. 6. Mild subacromial/subdeltoid bursitis. Reviewed, dictated and finalized at location E. IMPRESSION: 1. Moderate rotator cuff tendinopathy with articular sided partial thickness te ar of supraspinatus tendon. 2. Moderate glenohumeral joint chondrosis. 3. Severe acromioclavicular joint osteoarthritis. 4. Partial tear of biceps tendon. 5. Small glenohumeral joint effusion. 6. Mild subacromial/subdeltoid bursitis.
== END 2025-01-10 14:03 | disposition home or self-care (01) ==
PROVIDERS: PCP Family Medicine; Visit Provider Nurse Practitioner Family
DX: M75.31 Calcific tendinitis of right shoulder (principal); M94.211 Chondromalacia, right shoulder; M19.011 Primary osteoarthritis, right shoulder; S46.211A Strain of muscle, fascia and tendon of other parts of biceps, right arm, initial encounter; M25.411 Effusion, right shoulder; M75.51 Bursitis of right shoulder; X58.XXXA Exposure to other specified factors, initial encounter
CPT/HCPCS: 73221

== ENCOUNTER 2025-02-22 09:21 | Emergency (ER) | payer MEDICARE, SELFPAY ==
--- OUTSIDE RECORDS SUMMARY | 2025-01-29 04:00 | XMS_ITS ---
Author Organization [facility] Address [address] [place], [place] [id number] Care Team Providers Care Semiconductors Wafer Breaker Name Role Phone MADI TIMOTEO Unavailable [phone] Jerome Pardo Unavailable Unavailable Allergies No Known Allergies REASON FOR VISIT Patient presents for at-risk foot care . The patient has painful toenails and calluses that are causing difficulty with ambulation and shoegear. The onset is gradual Medications Medication SIG (Take, Route, Frequency, Duration) Notes Start Date End Date Status isopropyl alcohol 0.7 ML/ML Medicated Pad isopropyl alcohol 0.7 ML/ML Medicated PadOriginal Medicationisopropyl alcohol 0.7 ML/ML Medicated Pad *Reorder from [employer] for eRx and Interaction Alerts* 10/27/2021 12/20/2045 Active Social History Social History Additional Details Category Social Info Options Details Migrated Social History Migrated Social History History of tobacco use : Current everyday tobacco user , Smoking Status : Current everyday tobacco user Vital Signs Height 71.00 in 01/29/2025 Weight 240 lbs 01/29/2025 BMI 33.47 kg/m2 01/29/2025 Height-cm 180.34 cm 01/29/2025 Weight-kg 108.86 kg 01/29/2025 Encounters Encounter Location Date Provider Diagnosis [facility] [address] [place], [place] [id number] 01/29/2025 TIMOTEO BARRAZA Tinea unguium B35.1 ; Acquired keratosis [keratoderma] palmaris et plantaris L85.1 ; Atherosclerosis of stockbridge arteries of extremities with intermittent claudication, bilateral legs I70.213 ; Pain in right foot M79.671 and Pain in left foot M79.672 Assessments Encounter Date Diagnosis (ICD Code) Assessment Notes Treatment Notes Treatment Clinical Notes Section Notes 01/29/2025 Tinea unguium (ICD-10 - B35.1) Nails 1-5 Bilateral were debrided extensively with nail nippers and emery board, reducing length and girth to pink healthy tissue with any subungual debris and necrotic tissue removed 01/29/2025 Acquired keratosis [keratoderma] palmaris et plantaris (ICD-10 - L85.1) A total of 3 corns or calluses, as described in the note above, were cut and pared utilizing a #15 blade 01/29/2025 Atherosclerosis of stockbridge arteries of extremities with intermittent claudication, bilateral legs (ICD-10 - I70.213) 01/29/2025 Pain in right foot (ICD-10 - M79.671) 01/29/2025 Pain in left foot (ICD-10 - M79.672) [...] sooner if problems develop. Provider Name:TIMOTEO BARRAZA, 11:00:00 AM, [address] [facility], [facility] [address], [place], [place], [phone], History and Physical Notes * HPI (History [...] Date last seen by Dr. Pardo was December 2024., Initials IR Examination Category Sub-Category Detail Notes Category Not [...] inversion, and eversion in bilateral lower extremities Progress Notes * CARTER VÁZQUEZINDOB:1955 ([age] yo M)Acc No.[id number]:01/29/2025 Patient: PATRICK KIRBY Provider: Sundeep Barraza DPM :1955 A ge:69 Y S ex:Male Date:01/29/2025 Address:[address] [facility] [place], [id number] Subjective: * Chief Complaints: * Keshav larry [...] Date last seen by Dr. Pardo was December 2024., Initials IR. * ROS: G eneral / Constitutional: Patient denies c hange in appetite, fatigue, chills, fever, night sweats. M usculoskeletal: Patient complains of a rthritis. P eripheral Vascular: Patient denies u lceration of feet. S kin: Patient complains of f ungal nails, dry skin. ? * Medical History: Diabetic Medical History Verified * Surgical History: No Surgical History documented. Surgical History verified. * Hospitalization/Major Diagno stic Procedure: No Hospitalization Documented. Hospitalization Verified. * Family History: N o Family History documented.. F amily History Verified.. * Social History: M igrated Social History: M igrated Social History: History of tobacco use : Current everyday tobacco user , Smoking Status : Current everyday tobacco user. Social History Verified. * Medications: T akingisopropyl alcohol 0.7 ML/ML Medicated Pad , stop date 12/20/2045, Notes to Pharmacist: isopropyl alcohol 0.7 ML/ML Medicated PadOriginal Medicationisopropyl alcohol 0.7 ML/ML Medicated Pad *[facility] Interaction Alert[facility]*Medication List reviewed and reconciled with the patientTaking isopropyl alcohol 0.7 ML/ML Medicated Pad , stop date 12/20/2045, Notes to Pharmacist: isopropyl alcohol 0.7 ML/ML Medicated PadOriginal Medicationisopropyl alcohol 0.7 ML/ML Medicated Pad *[facility]*Medication List reviewed and reconciled with the patient * Allergies: N .K.D.A.yesAllergies Verified. Objective: * Vitals: S hoe Size: 12, Wt:240lbs, Wt-k.86 kg, Ht: 71.00 in, Ht-cm: 180.34 cm, BMI:33.47Index, Body Surface Area: 2.33. * Examination: P hysical Examination: General appearance: [...] - L85.1 3 . A therosclerosis of stockbridge arteries of extremities with intermittent claudication, bilateral legs - I70.213 4 . P ain in right foot - M79.671 5 . P ain in left foot - M79.672 Plan: * Treatment: 2. A cquired keratosis [keratoderma] palmaris et plantaris Notes: A total of 3 corns or calluses, as described in the note above, were cut and pared utilizing a #15 blade * Preventive Medicine: Screenings: F all risk screening F all Risk Assessment: N o falls in the past year. * Follow Up: 1 0 - 12 weeks (Reason: At-Risk Foot care, sooner if problems develop.) * Electronic signature of TIMOTEO BARRAZA DPM on 02/22/2025 at 10:34 AM MANAGER MEDIA Sign off status: Pending * Provider: Sundeep Barraza DPM Date: Generated for Mitchell tucker/Raj/Radha on: 04/24/2024 10:34 AM MANAGER MEDIA
--- NOTE | ~2025-02-22 | CT_ITS ---
EXAMINATION: CT elbow RT w con DATE: 02/22/2025 15:04 INDICATION: Right elbow pain TECHNIQUE: High resolution computed tomography (CT) of the right elbow was performed without intravenous contrast. Additional sagittal and coronal reconstructions were performed. Automated exposure control and iterative reconstruction technique were employed. The dose-length product was 674.17 mGy-cm. COMPARISON: Right elbow radiographs dated 02/22/2025 FINDINGS: Bone alignment is normal. No fracture. Mild osteoarthritis at the right elbow with moderate-sized elbow joint effusion resulting displacement of both the anterior and posterior fat pads. No cortical erosions or periosteal reaction. Soft tissues are unremarkable. IMPRESSION: 1. Mild osteoarthritis at the right elbow with moderate-sized elbow joint effusion. No acute osseous abnormality. Reviewed, dictated and finalized at location A. TRICAL ENGINEERING DESIGNER IMPRESSION: 1. Mild osteoarthritis at the right elbow with moderate-sized elbow joint effus ion. No acute osseous abnormality.
--- NOTE | ~2025-02-22 | XR_ITS ---
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 Findings: No acute fracture or malalignment. No significant degenerative changes. Soft tissues unremarkable. Impression: No acute fracture or malalignment. Reviewed, dictated and finalized at location P. NTEER FIRE FIGHTER Impression: No acute fracture or malalignment.
[2025-02-22 09:27] VITALS: BP 176/73; PULSE 109; RESP 20; TEMP 36.4; O2SAT 92
--- OUTSIDE RECORDS SUMMARY | 2025-02-22 10:34 | XMS_ITS | Encounter Summary ---
Author Organization [facility] Address [address] [place] [address] Care Team Providers Care Marine Engineer Cpvec Name Role Phone Jerome Pardo MD Primary Care Provider [phone] Encounter Details Date Type Department Care Team (Late st Contact Info) Description 09/18/2019 Lab Requisition [facility] [address] [place] [address] Bobby Streeter MD Social History Tobacco Use Types Packs/Day Years Used Date Smoking Tobacco: Never Assessed Sex and Gender Information Value Date Recorded Sex Assigned at Not on file 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 This test has been [...] LAB - MICROBIOLOGY ORDERABL ES Final Result [facility] [address] [place] [address], [facility] [phone] documented in this encounter Visit Diagnoses Not on filedocumented in this encounter Additional Health Concerns Infection Onset Date Last Indicated Resolved Time COVID-19 Under Investigation 09/18/2019 09/17/2019 09/18/2019 5:21 PM CDT documented as of this encounter Care Teams Marine Engineer Cpvec Relationship Specialty Start Date End Date Jerome Pardo MD [address] [place] [phone] PCP - General 06/01/19 documented as of this encounter
--- OUTSIDE RECORDS SUMMARY | 2025-02-22 10:35 | XMS_ITS | Clinical Summary ---
Author Organization [facility] Address [address] [place] [address] Care Team Providers Care Building Wrecker Name Role Phone Jerome Pardo MD Primary Care Provider [phone] Source Comments [facility] [employer],non-owned Affiliates and Associated Physician Practices is amultiple site organization consisting of ambulatory clinics and hospital sitesin [place], [place], [place]. This disclosure is being madepursuant to the Care Everywhere program and may not contain all information available regarding this patient. 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
--- OUTSIDE RECORDS SUMMARY | 2025-02-22 10:35 | XMS_ITS | Data Portability ---
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 Dereck Dickinson 14 IM [address] [facility] [place] [address] 06/06/2018 10:38:56 06/06/2018 14:50:48 Type 2 diabetes mellitus 34442475 E11.9 Arthritis 5815770 M19.90 Ex-smoker 4322033 Z87.89 1 Obesity 638023653 E66.9 [id number] MD Dereck Dickinson [address] [facility] [place] [address] 09/06/2018 09:57:09 09/07/2018 16:12:06 Type 2 diabetes mellitus 91600394 E11.9 Smoker 62029030 F17.200 Pt restarted but cannot say why. He is motivated to quit again. Smokers' cough 18513503 J41.0 Impotence 678815843 N52. 9 A prescripti on for Viagra was written. Essential hypertension 39677878 I10 Well-contr olled. [id number] MD Dereck Dickinson 14 IM [address] [facility] [place] [address] 12/12/2018 10:04:41 12/13/2018 08:58:46 Type 2 diabetes mellitus 79879169 E11.9 Loss of se nse of smell 25246687 R43.0 If no better by the end of December 2018, we will refer him to an ENT specialist . [id number] MD Dereck Dickinson 14 IM [address] [facility] [place] [address] 12/30/2018 16:03:08 01/02/2019 09:36:35 Type 2 diabetes mellitus 15293729 E11.9 Left later al elbow tendinopathy 2633622268 83022 M77.12 Loss of se nse of smell 82991375 R43.0 History of polyp of colon 033840897 Z86.010 we will plan on doing this in early 2019 Trying to give up smoking 597220027 Z72.0 [id number] MD Dereck Dickinson 14 IM [address] [facility] [place] [address] 06/26/2019 11:02:08 06/27/2019 14:17:18 Type 2 diabetes mellitus 90385992 E11.9 History of polyp of colon 236172274 Z86.010 Screening for malignant neoplasm of prostate 717752356 Z12.5 Smoker 62729446 F17.200 Peripheral vascular disease 895469196 I73.9 Adult heal th examination 154956028 Z00.00 He will consider the shingrix vaccinatio n in the future. [id number] MD Dereck Dickinson 14 IM [address] [facility] [place] [address] 06/14/2020 16:47:12 06/17/2020 13:17:04 Type 2 diabetes mellitus 32285697 E11.9 HgbA1c is 10.4 Infection of tooth 63378 8007 K04.7 Peripheral arterial occlusive disease 929337424 I73.9 Ex-smoker 4156698 Z87.89 1 [id number] MD Dereck Dickinson 14 IM [address] [facility] [place] [address] 08/14/2020 11:34:32 08/16/2020 21:27:00 Type 2 diabetes mellitus 99735358 E11.9 HgbA1c is excellent at 7.8. Administra tion of SARS-CoV-2 antigen vaccine 885458328 Z23 Smoker 87800223 F17.200 11-12 cigarettes a day [id number] MD Dereck Dickinson 14 IM [address] [facility] [place] [address] 12/17/2020 08:42:03 12/20/2020 06:44:41 Smoker 78726552 F17.200 11-12 cigarettes a day Overweight 113083796 E66 .3 Type 2 juanita betes mellitus 94455654 E11.9 HgbA1c is excellent at 7.8. Essential hypertension 80906430 I10 Gastroesop hageal reflux disease 029680095 K21.9 Active or passive immunization 381265322 Z23 Foot callus 725367827 L8 4 Pt states that he needs more frequent podiatry visits because of attention needed to foot calluses. [id number] MD Dereck Dickinson 14 IM [address] [facility] [place] [address] 03/06/2021 11:01:06 03/10/2021 10:20:06 Smoker 61366962 F17.200 11-12 cigarettes a day Type 2 juanita betes mellitus 30563960 E11.9 Screening for malignant neoplasm of colon 927846724 Z12.11 screening colonoscop y was done on 01-06-2016 --to be repeated in three years [id number] MD Dereck Dickinson [address] [facility] [place] [address] 08/06/2021 15:19:11 08/08/2021 12:47:43 Type 2 diabetes mellitus 26121740 E11.9 [id number] MD Dereck Dickinson [address] [facility] [place] [address] 1 09/11/2021 10:46:15 09/12/2021 13:15:44 Type 2 diabetes mellitus 72323976 E11.9 Secondary erectile dysfunction 739748052 N52.39 [id number] MD Dereck Dickinson [address] [facility] [place] [address] 1 12/11/2021 10:52:47 12/15/2021 18:01:15 Smoker 72241326 F17.200 11-12 cigarettes a day Obesity 387913841 E66.9 Abdominal aortic aneurysm screening 786686208 Z13.6 Screening for malignant neoplasm of prostate 549515912 Z12.5 Benign pro static hyperplasia 224888870 N40.0 Serum crea tinine above reference range 876897917 R79.89 Vitamin D deficiency 347 20495 E55.9 [id number] MD Dereck Dickinson [address] [facility] [place] [address] 02/16/2022 10:33:23 02/18/2022 09:22:10 Essential hypertension 43626274 I10 Type 2 juanita betes mellitus 38929122 E11.9 pt has now restarted using insulin in obtaining better control of blood sugars [id number] MD Dereck Dickinson 14 IM [address] [facility] [place] [address] 07/07/2022 10:27:56 07/08/2022 15:41:07 Under care of income auditor 404107985 Z76.[address] Beto Beckett Type 2 juanita betes mellitus 17087648 E11.9 pt has now restarted using insulin in obtaining better control of blood sugars Peripheral vascular disease 424994945 I73.9 followed by a specialist Essential hypertension 43303461 I10 well-contr olled Secondary erectile dysfunction 284550861 N52.39 Ex-smoker 4631797 Z87.89 1 since February 2022 Screening for malignant neoplasm of prostate 669659861 Z12.5 Vitamin D deficiency 347 42159 E55.9 Screening for malignant neoplasm of respiratory tract 715853352 Z12.2 [id number] MD Dereck Dickinson 14 IM [address] [facility] [address] [place] [address] [address] 10/20/2022 15:36:00 10/22/2022 12:35:44 Obesity 859865377 E66.9 Type 2 juanita betes mellitus 32646948 E11.9 increase levemir from 18 to 21 units Screening for malignant neoplasm of colon 291833665 Z12.11 screening colonoscop y was done on 01-06-2016 --to be repeated in three years--it was done at [facility] Screening for malignant neoplasm of prostate 570430792 Z12.5 PSA was WNL on Under care of income auditor 443534942 Z76.[address] Beto Beckett [id number] MD Dereck Dickinson 14 IM [address] [facility] [place] [address] 02/04/2023 12:14:30 02/08/2023 16:04:15 Obesity 715680179 E66.9 Under care of income auditor 461314970 Z76.[address] Beto Beckett Under care of delivery route driver 069092432 Z76.89 Immunization advised 310 313685 Z71.9 pt was encouraged to consider the pneumovax 23 and the shingrix vaccinatio ns Ex-smoker 4166200 Z87.89 1 since February 2022 Type 2 juanita betes mellitus 03676672 E11.9 increase levemir from 18 to 21 units [id number] MD Dereck Dickinson 14 IM [address] [facility] [place] [address] 05/20/2023 13:50:53 05/25/2023 12:50:28 Obesity 459889446 E66.9 Essential hypertension 76540735 I10 Type 2 juanita betes mellitus 71508816 E11.9 pt is presently taking 24 units of levemir daily--Hgb A1c is better than at last check Ex-smoker 5720587 Z87.89 1 since February 2022 Under care of it network engineer 838657700 Z76.89 Under care of income auditor 197896217 Z76.[address] Beto Beckett [id number] MD Dereck Dickinson 14 IM [address] [facility] [place] [address] 08/26/2023 14:44:49 09/01/2023 15:01:22 Tetanus diphtheria and acellular pertussis vaccination declined 4426498810 0903171 Z28.20 Type 2 juanita betes mellitus 99898796 E11.9 pt is presently taking 24 units of levemir daily--Hgb A1c is better than at last check Under care of income auditor 880937901 Z76.[address] Beto Beckett Benign ess ential hypertension 0162931 I10 [id number] MD Dereck Dickinson 14 IM [address] [facility] [place] [address] 2023 12:16:01 12/21/2023 10:41:21 Type 2 diabetes mellitus 40690790 E11.9 Due to increased Hgba1C, pioglitazo ne is now added. Dependence on continuous positive airway pressure ventilation 461600224 Z99.[address] Antonio Obesity 029472445 E66.9 Screening for malignant neoplasm of prostate 575071066 Z12.5 PSA was WNL on Screening for malignant neoplasm of colon 997756097 Z12.11 screening colonoscop y was done on 06-03-21--t o be repeated in five years--it was done at [facility] [id number] MD Dereck Dickinson [address] [facility] [place] [address] 03/21/2024 11:05:07 03/27/2024 11:02:50 Administration of pneumococcal vaccine 71994908 Z23 Numbness of hand 3766752 04 R20.0 for 4 weeks now Under care of income auditor 931833110 Z76.[address] Beto Beckett--pt has an upcoming appt with him in [place] Under care of it network engineer 962323299 Z76.89 Type 2 juanita betes mellitus 87516445 E11.9 blood was recommende d today--pt prefers to wait until seen by nephrologi st [id number] MD Dereck Dickinson [address] [facility] [place] [address] 1 07/25/2024 10:40:27 07/28/2024 09:15:49 Pain of right shoulder joint 0864882644 8372372 M25.511 897984 Type 2 juanita betes mellitus 41401533 E11.9 Erythrocytosis 460711907 D75.1 29572 followed by a hematologi st Chronic ki dney disease stage 3A 530067076 N18.31 5598414541 followed by a nephrologi st [id number] MD Dereck Dickinson [address] [facility] [place] [address] 1 11/30/2024 11:12:44 12/05/2024 12:02:21 Gout 28994929 M10.9 841982963 at left foot Type 2 juanita betes mellitus 17789998 E11.9 HgbA1c was 6.6 on 10-05-24 Screening for malignant neoplasm of prostate 762914935 Z12.5 580793 PSA was WNL on Screening for malignant neoplasm of colon 766686666 Z12.11 816147 screening colonoscop y was done on 06-03-21--t o be repeated in five years--it was done at [facility] [id number] MD Dereck Dickinson [address] [facility] [place] [address] 01/09/2025 10:48:01 01/11/2025 11:41:09 Adult health examination 564758572 Z00.00 Health Risk Assessment collected and reviewed Health Concerns Section Related Observation LastModified by Organization Detai ls LastModified Time None Recorded Concern Status LastModified by Organization Details LastModified Time None Recorded Advance Directives Directive Y: Casey Jaimes Jr. Payers Insurance Date Sequence Insurance Name Policy Number Policy Reeder Covered Member ID Reeder Member ID Guarantor Name 01/23/2025 1 [employer] (MEDICARE REPLACEMENT/A DVANTAGE - HMO) Casey L West [id number] Casey L West 01/09/2025 1 [place] Casey L West [id number] Casey L West 01/09/2025 1 [employer] (MEDICARE REPLACEMENT/A DVANTAGE - HMO) [id number] Casey L West [id number] Casey L West 01/09/2025 1 [employer] - [employer] (MEDICARE REPLACEMENT/A DVANTAGE - HMO) Casey L West [id number] Casey L West 01/09/2025 1 [employer] (MEDICARE REPLACEMENT/A DVANTAGE - PPO) Casey L West [id number] Casey L West 01/09/2025 1 [facility] (MEDICARE REPLACEMENT HMO) [id number] Casey L West [id number] Casey L West 01/09/2025 1 [employer] (MEDICARE REPLACEMENT/A DVANTAGE - HMO) [id number] Casey L West [id number] Casey L West 01/23/2025 2 [place] Casey L West [id number] Casey L West 01/09/2025 2 [place] [facility] Casey L West [id number] Casey L [place] 01/09/2025 [place] [facility] Casey L West [id number] Casey L West 01/09/2025 [place] Casey L West [id number] Casey L West 01/09/2025 1 [facility] (MEDICARE REPLACEMENT/A DVANTAGE - POS) [id number] Casey L West [id number] Casey Jaimes Notes Date Note Type Note Provider Name and Address Organization Details Recorded Time 2023 text/html ROS as noted in the [facility] Regular checkup. Jerome Walker MD Attn: Accounting,[address] , [place], [address], [facility] 12/20/2023 14:51:31 03/21/2024 text/html ROS as noted in the [facility] Regular checkup. Jerome Walker MD Attn: Accounting[address] [facility] [place], [place], [address], [place] [facility] 03/27/2024 07:18:10 07/25/2024 text/html Per intake note. Jerome Walker MD Attn: Accounting,[address] , [place], [address], [facility] 08/07/2024 13:01:50 11/30/2024 text/html Pt states that his gout attack has improved with the medications that were called in for him. Jerome Walker MD Attn: Accounting,[address] , [place], [address], [place] [facility] 12/01/2024 16:40:54 01/09/2025 text/html MAW 2Reported by Patient Pt presents for a medicare wellness visit. Jerome Walker MD Attn: Accounting,[address] [facility] [place], [place], [address], [facility] 01/10/2025 22:06:02
--- OUTSIDE RECORDS SUMMARY | 2025-02-22 10:36 | XMS_ITS | Patient Health Record ---
Author Organization [facility] Address [address] [place], [place] [id number] Care Team Providers Care Freelance Copywriter Name Role Phone TIMOTEO BARRAZA Unavailable [phone] Jerome Pardo Unavailable Unavailable Allergies No Known Allergies Reason For Referral No Information Medications Medication SIG (Take, Route, Frequency, Duration) Notes Start Date End Date Status isopropyl alcohol 0.7 ML/ML Medicated Pad isopropyl alcohol 0.7 ML/ML Medicated PadOriginal Medicationisopropyl alcohol 0.7 ML/ML Medicated Pad *Reorder from [employer] for eRx and Interaction Alerts* 10/27/2021 12/20/2045 Active Immunizations Vaccine Route Administration Date Status Comme nts Influenza, quadrivalent, spl it virus Unknown 01/23/2015 Administered Moderna Covid-19 Vaccine 1st dose Unknown 07/04/2020 Administered Moderna Covid-19 Vaccine 1st dose Unknown 08/01/2020 Administered Pneumococcal conjugate PCV 13 Unknown 03/10/2018 Admini stered Tdap Unknown 03/21/2024 Not Administered Social History Social History Additional Details Category Social Info Options Details Migrated Social History Migrated Social History History of tobacco use : Current everyday tobacco user , Smoking Status : Current everyday tobacco user Vital Signs Height-cm 180.34 cm 01/29/2025 Weight-kg 108.86 kg 01/29/2025 Height 71.00 in 01/29/2025 Weight 240 lbs 01/29/2025 BMI 33.47 kg/m2 01/29/2025 Encounters Encounter Location Date Provider Diagnosis [facility] [address] [place], [place] [phone] 01/29/2025 TIMOTEO SNOOK Tinea unguium B35.1 ; Acquired keratosis [keratoderma] palmaris et plantaris L85.1 ; Atherosclerosis of chilkoot arteries of extremities with intermittent claudication, bilateral legs I70.213 ; Pain in right foot M79.671 and Pain in left foot M79.672 [facility] [address] [place] [id number] 04/24/2024 TIMOTEO SNOOK Tinea unguium B35.1 ; Acquired keratosis [keratoderma] palmaris et plantaris L85.1 ; Atherosclerosis of chilkoot arteries of extremities with intermittent claudication, bilateral legs I70.213 ; Pain in right foot M79.671 and Pain in left foot M79.672 [facility] [place] [address] [address] [place] [id number] 07/24/2024 TIMOTEO SNOOK Tinea unguium B35.1 ; Acquired keratosis [keratoderma] palmaris et plantaris L85.1 ; Atherosclerosis of chilkoot arteries of extremities with intermittent claudication, bilateral legs I70.213 ; Pain in right foot M79.671 and Pain in left foot M79.672 [facility] [place] [address] [address] [place] [id number] 10/23/2024 TIMOTEO SNOOK Tinea unguium B35.1 ; Acquired keratosis [keratoderma] palmaris et plantaris L85.1 ; Atherosclerosis of chilkoot arteries of extremities with intermittent claudication, bilateral legs I70.213 ; Pain in right foot M79.671 and Pain in left foot M79.[address] 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, bilateral legs (ICD-10 - I70.213) 10/23/2024 Atherosclerosis of chilkoot arteries of extremities with intermittent claudication, bilateral legs (ICD-10 - I70.213) 07/24/2024 Atherosclerosis of chilkoot arteries of extremities with intermittent claudication, bilateral legs (ICD-10 - I70.213) 04/24/2024 Atherosclerosis of chilkoot arteries of extremities with intermittent claudication, bilateral legs (ICD-10 - I70.213) 04/24/2024 Pain in right foot (ICD-10 - M79.671) 07/24/2024 Pain in right foot (ICD-10 - M79.671) 10/23/2024 Pain in right foot (ICD-10 - M79.671) 01/29/2025 Pain in right foot (ICD-10 - M79.671) 01/29/2025 Pain in left foot (ICD-10 - M79.672) 10/23/2024 Pain in left foot (ICD-10 - M79.672) 07/24/2024 Pain in left foot (ICD-10 - M79.672) 04/24/2024 Pain in left foot (ICD-10 - M79.672) Plan Of Treatment Next Appt Details Provider Name:TIMOTEO BARRERASHANKAR, 11:00:00 AM, [address] [facility], [place], [place], [id number], Insurance Providers Payer Name Payer Address Payer Phone Subscriber Number Group Number Insured Name Patient Relationship to Insured Coverage Start Date Coverage End Date [facility] [address] [place] [id number] PATRICK VÁZQUEZ Self - patient is the insured Medical (General) History Medical History History ICD Code Diabetic
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
--- OUTSIDE RECORDS SUMMARY | 2025-02-22 10:36 | XMS_ITS | Encounter Summary ---
Author Organization [facility] Address [address] [place] [address] Care Team Providers Care Hand Violin Maker Name Role Phone Jerome Pardo MD Primary Care Provider + Encounter Details Date Type Department Care Team (Late Contact Info) Description 02/19/2025 Orders Only [facility] Oncology and Hematology [facility] [address] [place] [phone] Asim Armendariz MD [address] [place], [place] [address]Figment [address] [place] [address] Polycythemia, secondary Social History Tobacco Use Types Packs/Day Years Used Date Smoking Tobacco: Former Cigarettes 1 25 Smokeless Tobacco: Never Alcohol Use Standard Drinks/Week Comments Never 0 (1 standard drink = 0.6 oz pur e alcohol) Sex and Gender Information Value Date Recorded Sex Assigned at Not on file 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 Gender Identity Not on file Sexual Orientation Not on file documented as of this encounter Plan of Treatment Upcoming Encounters Date Type Department Care Team (Late st Contact Info) Description 11/29/2025 10:00 AM CDT Office Visit [facility] Oncology and Hematology [facility] [address] [place] [address] Asim Armendariz MD [address] [place] [address] documented as of this encounter Visit Diagnoses Diagnosis Polycythemia, secondary documented in this encounter Care Teams Hand Violin Maker Relationship Specialty Start Date End Date Jerome Pardo MD [address] [phone] PCP - General Family Practice 05/06/23 documented as of this encounter
--- OUTSIDE RECORDS SUMMARY | 2025-02-22 10:36 | XMS_ITS | Clinical Summary ---
Author Organization [facility] [employer] [facility] Address [address] [phone] Phone Care Team Providers Care Novelties Sales Representative Name Role Phone Unavailable Primary Care Provider [...] day Active Cholecalciferol (Vitamin D3) 1.25 MG (56782 UT) tablet Take 1 tablet by mouth [...] Encounters Date Type Department Care Team Description 01/12/[address] 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 Office Visit [facility], [facility] [address] [facility] [address] [place] [address] Beto Beckett MD [address] [place] [address] Health Maintenance Due Date Last Done Comments Colorectal Cancer Screening: Annual FOBT 12/17/2003 Colorectal Cancer Screening: Colonoscopy 12/17/2003 Colorectal Cancer Screening: Sigmoidoscopy 12/17/2003 Pneumococcal Vaccine: 50+ Years (3 of 3 - PCV20 or PCV21) 05/05/2018 03/10/2018, 04/14/2013 Diabetes: Ophthalmology Exam 01/29/2022 Diabetes: Pedal Pulse Checked 01/29/2022 Diabetes: Sensory Foot Exam 01/29/2022 Diabetes: Visual Foot Exam 01/29/2022 Influenza Vaccine (#1) 2024 01/23/2015, 2013 Diabetes: Hemoglobin A1C 01/05/2025 025, 04/27/2024, 08/04/2023, Additional history exists Hepatitis B Vaccine Aged Out No longe r eligible based on patient's age to complete this topic Procedures Procedure Name Priority Date/Time Associated Diagnosis Comments HEMOGLOBIN A1C Routine 10/05/2024 11:39 AM CDT from Last 3 Months or Most Recently Relevant to Health Maintenance Results * (ABNORMAL) Hemoglobin A1c (10/05/2024 11:39 AM CDT) Hemoglobin A1C 6.6(H) 4.8 - 5.6 % [facility] Comment: Prediabetes: 5.7 - 6.4 Diabetes: >6.4 Glycemic control for adults with diabetes: <7.0 10/05/2024 11:3 9 AM CDT 10/04/2024 11:00 PM CDT us Beto Beckett MD LAB BLOOD ORDERABLES Final R esult [facility] [address] [place] [address] from Last 3 Months or Most Recently Relevant to Health Maintenance Insurance [employer]
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
--- OUTSIDE RECORDS SUMMARY | 2025-02-22 10:36 | XMS_ITS | Clinical Summary ---
Author Organization [facility] Address [address] [place] [address] Care Team Providers Care Loaf Counter Name Role Phone Jerome Pardo MD Primary [...] Encounters Date Type Department Care Team Description 02/19/2025 Orders Only [facility] - [facility] [address] [place] [address] Asim Armendariz MD Polycythemia, secondary 02/05/2025 Orders Only [facility] - [facility] [address] Asim Armendariz MD Polycythemia, secondary 01/22/2025 Orders Only [facility] - [facility] [address] Asim Armendariz MD Polycythemia, secondary 01/08/2025 Orders Only [facility] - [facility] [address] Asim Armendariz MD Polycythemia, secondary 01/04/2025 Orders Only [facility] - [facility] [address] Asim Armendariz MD 01/02/2025 10:15 AM CDT Office Visit [facility] Yadira [address] Asim Armendariz MD Polycythemia, secondary (Primary Dx) 12/25/2024 Orders Only [facility] - [facility] Jennifer [address] Asim Armendariz MD Polycythemia, secondary 12/12/2024 Orders Only [facility] - [facility] [address] Asim Armendariz MD 12/11/2024 Orders Only [facility] [address] [place] [phone] Asim Armendariz MD Polycythemia, secondary 12/05/2024 External Device Data STL ABSTRACTION Provider, Abstract 12/05/2024 External Device Data STL ABSTRACTION Provider, Abstract 11/29/2024 External Device Data STL ABSTRACTION Provider, Abstract 11/28/2024 Orders Only [facility] [address] [place] [address] Asim Armendariz MD Polycythemia, secondary (Primary Dx) from Last 3 Months Family History Medical [...] on file Legal Sex Male 10:56 AM 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 Gender Identity Not on file Sexual Orientation Not on file Last Filed Vital Signs Vital Sign Reading Time Taken Comments Blood Pressure 154/89 01/02/2025 10:40 AM CDT Pulse 98 01/02/2025 10:16 AM CDT Temperature 36.2 C (97.1 F) 01/02/2025 10:16 AM CDT Respiratory Rate 15 01/02/2025 10:1 6 AM CDT Oxygen Saturation 92% 01/02/2025 10: 16 AM CDT Inhaled Oxygen Concentration - - Weight 109.2 kg (240 lb 12.8 oz) 2024 10:16 AM CDT Height 180.3 cm (5' 11) 05/06/2023 10: 45 AM 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 Body Mass Index 33.58 05/06/2023 10:45 AM 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 Plan of Treatment Upcoming Encounters Date Type Department Care Team (Late st Contact Info) Description 11/29/2025 10:00 AM CDT Office Visit [facility] H[facility]ology - [facility] [address] [place] [phone] Asim Armendariz MD [facility] [address] [place] [phone] Health Maintenance Due Date Last Done Comments DIABETES ANNUAL FOOT EXAM 1972 DIABETES ANNUAL RETINAL EXAM 1972 DIABETES MICROALBUMIN ANNUAL SCREEN 1972 LDL CHOLESTEROL ANNUAL 1972 DTAP/TDAP/TD VACCINES (1 - Tdap) 1973 FIT-DNA Q 3 years 12/17/1999 FIT/FOBT Q 1 year 12/17/1999 Flex Sig/CT Colonography Q 5 years 12/17/1999 RSV VACCINE (60+ or ) (1 - Risk 50-74 years 1-dose series) 2004 ZOSTER VACCINE (1 of 2) 2004 Abdominal Aortic Aneurysm (A AA) Screening 12/17/2019 PNEUMOCOCCAL VACCINE 50+ YEA RS (3 of 3 - PCV20 or PCV21) 03/10/2023 03/10/2018, 04/14/2013 INFLUENZA VACCINE (#1) 2024 01/23/2015, 2013 COVID-19 Vaccine (4 - 2024-2 6 season) 2024 03/27/2021, 08/01/2020, 07/04/2020 DIABETES HBA1C Q 6 MONTHS 04/07/20252024, 04/27/2024, 08/04/2023, Additional history exists COLORECTAL SCREENING 06/04/2031 06/03/2021, 06/02/2021, 09/20/2019 Colorectal Cancer Screening 06/04/2031 Procedures Procedure Name Priority Date/Time Associated Diagnosis Comments CBC WITH AUTODIFFERENTIAL Routine 2024 11:55 AM CDT CBC WITH AUTODIFFERENTIAL Routine 2024 4:00 PM CDT from Last 3 Months Results * CBC WITH AUTODIFFERENTIAL (01/02/2025 11:55 AM CDT) Only the most recent of2 resultswithin the time period is included. Blood us Asim Armendariz MD HEMATOLOGY ORDERABLES Final Res ult from Last 3 Months Insurance [facility] MCR Care Teams Loaf Counter Relationship Specialty Start Date End Date Jerome Pardo MD [address] [place] [phone] PCP - General Family Practice 05/06/23
--- NOTE | 2025-02-22 12:41 | ED.EXTPRO ---
HPI - Extremity Problem General Chief complaint: Extremity Problem,Nontraumatic Stated complaint: right elbow pain X3 days-denies injury Time Seen by Provider: 02/22/25 11:54 History of Present Illness HPI Narrative: 69-year-old male presenting to the emergency department for evaluation for right elbow pain. Patient does have history of gout but states he has never had gout in that elbow. Patient reports pain started approximately 3 days ago. Patient denies any other pain or injury. Patient does have pain that is tender to touch and with range of motion. Related Data Home Medications ?Medication ?Instructions ?Recorded ?Confirmed ?Last Taken ?Type glipizide 10 mg tablet 10 mg PO BID 06/01/20 06/23/24 06/02/21 History pravastatin 20 mg tablet 20 mg PO DAILY 06/01/20 06/23/24 06/02/21 History triamterene 37.5 1 cap PO DAILY 06/01/20 06/23/24 06/02/21 History mg-hydrochlorothiazide 25 mg capsule clopidogrel 75 mg tablet (Plavix) 75 mg PO DAILY 04/28/21 06/23/24 05/29/21 History ergocalciferol (vitamin D2) 1,000 1,250 mcg PO WEEKLY 04/28/21 06/23/24 06/02/21 History unit capsule lisinopril 5 mg tablet 5 mg PO DAILY 04/28/21 06/23/24 06/02/21 History famotidine 40 mg tablet 40 mg PO DAILY 01/17/24 11/14/24 Unknown History nifedipine 30 mg tablet,extended 30 mg PO DAILY 01/17/24 11/14/24 Unknown History release 24 hr tamsulosin 0.4 mg capsule 0.4 mg PO DAILY 01/17/24 11/14/24 Unknown History insulin glargine 100 unit/mL (3 22 unit subcut QPM 12/12/24 12/12/24 Unknown History mL) subcutaneous pen (Lantus Solostar U-100 Insulin) Allergies Allergy/AdvReac Type Severity Reaction Status Date / Time No Known Allergies Allergy Mild Verified 02/22/25 09:31 Review of Systems Review of Systems: All systems reviewed & are unremarkable except as noted in HPI and below PMFSH Past Medical History Medical History (Updated 02/22/25 @ 15:18 by Kenneth Vasquez MD) Rotator cuff tear Bilateral hip pain Low back pain Tingling of both upper extremities Weakness of both upper extremities Right shoulder pain Hand numbness Adhesive capsulitis Left hand pain Right hand pain Diabetes Hypertension Hyperlipidemia 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 HEAD: normocephalic, atraumatic. EYES: PERRLA/EOMI, conjunctivae clear. NOSE: Normal no drainage EARS:TMS clear with good light reflex. THROAT: Pharynx clear, no exudate. NECK: Supple. No adenopathy, no masses. RESPIRATORY: Airway patent, respirations nonlabored. Clear to auscultation bilaterally, no rales, rhonchi, wheezing. CARDIOVASCULAR: Regular rate and rhythm without murmurs rubs or gallops. ABDOMINAL: Soft, nontender, nondistended, normal bowel sounds MUSCULOSKELETAL: Mild warmth to right elbow with no edema or cellulitic appearance, no fluctuance NEURO: Alert. Cranial nerves II through XII intact. Good gait. Good coordination SKIN: Warm, dry. Normal Color Course Vital Signs Vital signs: Vital Signs Temperature 97.5 F L 02/22/25 09:27 Pulse Rate 109 H 02/22/25 09:27 Respiratory Rate 20 02/22/25 09:27 Blood Pressure 176/73 H 02/22/25 09:27 Pulse Oximetry 92 02/22/25 09:27 Oxygen Delivery Room Air 02/22/25 09:27 Temperature 97.5 F L 02/22/25 09:27 Pulse Rate 109 H 02/22/25 09:27 Respiratory Rate 20 02/22/25 09:27 Blood Pressure 176/73 H 02/22/25 09:27 Pulse Oximetry 92 02/22/25 09:27 Oxygen Delivery Room Air 02/22/25 09:27 MDM - Extremity (Nontraumatic) MDM Narrative Medical decision making narrative: 69-year-old male presents to the emergency department for evaluation for right elbow pain. Patient is afebrile with no leukocytosis and hemoglobin of 16.5. ESR is not elevated CRP is mildly elevated. X-ray showed no acute fracture dislocation. Due to level of discomfort elbow CT was ordered and does show evidence of osteoarthritis and age joint effusion. Low concern for septic arthritis. Patient was started on Medrol Dosepak in addition to medication for pain control. Patient was encouraged close follow-up with his primary care physician. Differential Diagnosis Differential diagnosis: Likely gout, cellulitis and other (Septic arthritis, osteoarthritis) Lab Data 02/22/25 13:12 02/22/25 14:06 Labs: Lab Results 02/22/25 02/22/25 Range/Units 13:12 14:06 WBC 7.1 (4.5-10.0) K/mm3 RBC 5.51 (4.6-6.20) M/mm3 Hgb 16.5 (14.0-18.0) g/dL Hct 50.7 (42.0-52.0) % MCV 92.0 (80-100) fl MCH 29.9 (26-34) pg MCHC 32.5 (32-36) g/dl RDW 17.6 H (11.5-14.5) % Plt Count 223 (150-375) k/mm3 MPV 9.9 (7.4-10.4) fl Immature Gran % (Auto) 0.3 (0-0.5) % Neut % (Auto) 75.5 H (45.5-73.1) % Lymph % (Auto) 15.0 L (18.3-44.2) % [place] % (Auto) 7.3 (2.6-8.5) % Eos % (Auto) 1.3 (0-4.4) % Baso % (Auto) 0.6 (0.2-1.2) % Lymph # (Auto) 1.06 (0.9-3.2) K/mm3 [place] # (Auto) 0.5 (0.1-0.6) K/mm3 Eos # (Auto) 0.1 (0-0.3) K/mm3 Baso # (Auto) 0.0 (0.0-0.1) K/mm3 Abs Immat Gran (auto) 0.02 (0.00-0.031) K/mm3 Absolute Neuts (auto) 5.4 (1.3-6.7) K/mm3 Absolute Nucleated RBC 0.000 (0.0-0.012) K/mm3 Nucleated RBC % 0.0 (0.0-0.2) % ESR 5 (0-20) mm/hr Sodium 132 L (137-145) mmol/L Potassium 3.9 (3.4-5.0) mmol/L Chloride 102 (98-107) mmol/L Carbon Dioxide 20 L (22-30) mmol/L Anion Gap 10 (4-12) mmol/L BUN 21 H (9-20) mg/dL Creatinine 1.57 H (0.7-1.3) mg/dL Estim Creat Clear Calc 50 ml/min Estimated GFR 44 L (59 - ) Glucose 147 H (65-110) mg/dL Calcium 9.1 (8.4-10.2) mg/dL Total Bilirubin 1.5 H (0.2-1.3) mg/dL AST 29 (17-59) U/L ALT 21 (6-50) U/L Alkaline Phosphatase 105 (38-126) U/L C-Reactive Protein 13.1 H (<1.0) mg/dL Total Protein 8.1 (6.3-8.2) g/dL Albumin 4.1 (3.5-5.1) g/dL Imaging Data Radiologist's impression: Impressions Elbow X-Ray 02/22/25 11:07 Impression: No acute fracture or malalignment. Elbow CT 02/22/25 15:10 IMPRESSION: 1. Mild osteoarthritis at the right elbow with moderate-sized elbow joint effusion. No acute osseous abnormality. Discharge Plan Discharge Clinical Impression: Elbow pain Patient Disposition: Home Condition: Stable Instructions: Antibiotic Form, How to Use a Sling (ED) Additional Instructions: Sling for comfort. Grandy for pain control. Steroids as directed. Have close follow-up with your primary care physician. If you have any worsening symptoms then please call or return to the emergency department. Patient Language: Estonian Prescriptions: New hydrocodone-acetaminophen 5-325 mg tablet 1 tablet PO Q12H PRN (Reason: pain) Qty: 14 0RF methylprednisolone [Medrol (Pedro)] 4 mg tablets,dose pack See Rx Instructions .ROUTE .COMPLEX Qty: 21 0RF Rx Instructions: for 6 days No Action nifedipine 30 mg tablet extended release 24hr 30 mg PO DAILY famotidine 40 mg tablet 40 mg PO DAILY tamsulosin 0.4 mg capsule 0.4 mg PO DAILY insulin glargine [Lantus Solostar U-100 Insulin] 100 unit/mL (3 mL) insulin pen 22 unit SUBCUT QPM glipizide 10 mg tablet 10 mg PO BID triamterene-hydrochlorothiazid 37.5-25 mg capsule 1 cap PO DAILY pravastatin 20 mg tablet 20 mg PO DAILY clopidogrel [Plavix] 75 mg Tablet 75 mg PO DAILY Patient Comments: .. lisinopril 5 mg Tablet 5 mg PO DAILY Vitamin D2 1,000 unit Capsule 1,250 mcg PO WEEKLY Rx Instructions: on Saturdays meclizine 12.5 mg tablet 12.5 mg PO TID PRN (Reason: dizziness) Qty: 20 0RF pantoprazole 40 mg tablet,delayed release (DR/EC) 40 mg PO QAM 28 Days Qty: 30 6RF Follow-up/Referrals: Edvin,Jerome Palacio MD [Primary Care Provider]
[2025-02-22] MEDS: KETOROLAC 30 MG/ML VIAL (*BKC) IV PUSH (13:09)
[2025-02-22 13:24] LABS: Hematocrit 50.7 % (42.0-52.0); Hemoglobin 16.5 g/dL (14.0-18.0); Immature Granulocyte Percent A 0.3 % (0-0.5); Lymphocytes Absolute Auto 1.06 K/mm3 (0.9-3.2); Mean Corpuscular HGB Conc 32.5 g/dl (32-36); Mean Corpuscular Hemoglobin 29.9 pg (26-34); Mean Corpuscular Volume 92.0 fl (80-100); Nucleated Red Blood Cells Absolute Auto 0.000 K/mm3 (0.0-0.012); Nucleated Red Blood Cells Perc 0.0 % (0.0-0.2); Platelet Count Result 223 k/mm3 (150-375); Red Blood Count 5.51 M/mm3 (4.6-6.20); White Blood Count 7.1 K/mm3 (4.5-10.0)
[2025-02-22 14:35] LABS: Alanine Aminotransferase 21 U/L (6-50); Albumin Level 4.1 g/dL (3.5-5.1); Alkaline Phosphatase 105 U/L (38-126); Anion Gap 10 mmol/L (4-12); Aspartate Amino Transferase 29 U/L (17-59); Bilirubin,Total 1.5 mg/dL (0.2-1.3); Blood Urea Nitrogen 21 mg/dL (9-20); Calcium 9.1 mg/dL (8.4-10.2); Carbon Dioxide 20 mmol/L (22-30); Chloride 102 mmol/L (98-107); Estimated CRCL calculation 50 ml/min; Estimated Glomerular Filt Rate 44; Glucose 147 mg/dL (65-110); Potassium 3.9 mmol/L (3.4-5.0); Sodium 132 mmol/L (137-145); Total Protein 8.1 g/dL (6.3-8.2)
[2025-02-22 14:57] LABS: CRP 13.1 mg/dL (<1.0)
--- OUTSIDE RECORDS SUMMARY | 2025-02-22 15:09 | XMS_ITS | Clinical Summary ---
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 Office Visit [facility], [facility] [address] [facility] [address] [place] [address] Beto Beckett MD [address] [place] [address] Health Maintenance Due Date Last Done Comments [...] A1C 6.6(H) 4.8 - 5.6 % [facility] Comment: Prediabetes: 5.7 - 6.4 Diabetes: >6.4 Glycemic control for adults with diabetes: <7.0 10/05/2024 11:3 9 AM CDT 10/04/2024 11:00 PM CDT us Beto Beckett MD LAB BLOOD ORDERABLES Final R esult [facility] [address] [place] [address] from Last 3 Months or Most Recently Relevant to Health Maintenance Insurance [employer]
--- OUTSIDE RECORDS SUMMARY | 2025-02-22 15:09 | XMS_ITS | Clinical Summary ---
Author Organization [facility] Address [address], [facility] [address] [place] [address] Phone Care Team Providers Care Domestic Maid Name Role Phone Jerome Pardo MD Primary Care Provider [phone] Krish Donaldson DPM Unavailable Allergies No known active allergies Medications pravastatin (PRAVACHOL) 20 MG Tablet Take 20 mg by mouth every morning. Active RELION PEN NEEDLES 32G X 4 MM [facility] 6 Active triamterene-hydr ochlorothiazide (DYAZIDE) 37.5-25 MG Capsule every morning. 6 Active amLODIPine (NORVASC) 10 MG Tablet every morning. 9 Active glipiZIDE (GLUCOTROL) 10 MG Tablet every morning. 9 Active PRODIGY NO CODING BLOOD GLUC Strip 9 Active PRODIGY TWIST TOP LANCETS 28G [facility] 9 Active JANUVIA 100 MG Tablet every [...] 09/13/2019 1:00 PM CDT Plan of Treatment Upcoming Encounters Date Type Department Care Team (Late st Contact Info) Description 03/06/2025 11:30 AM ANIMAL CARE ATTENDANT Appointment [facility] Res[facility] Therapy [address] [place] [phone] Roverto Antonio MD [address] [place] [address] Discharge Disposition: Discharged to home or Selfcare Health Maintenance Due Date Last Done Comments Diabetes: Eye Exam 1954 Diabetes: Foot Exam 1955 Hepatitis C Virus (HCV) Screening 1955 TdaP Immunization 1954 Varicella Immunization (1 of 2 - 13+ 2-dose series) 12/17/1967 Diabetes: Nephropathy Screening 1972 Cologuard 12/17/1999 Immunochemical Fecal Occult Blood 12/17/1999 Respiratory Syncytial Virus (RSV) Immunization (Adult) (1 - Risk 50-74 years 1-dose series) 2004 Zoster Immunization (1 of 2) 2004 Medicare Initial AWV [id number] 11/03/2014 Colonoscopy 09/19/2022 09/20/2019, 10/0 06/2015, 02/18/2015 Colorectal Cancer Screening 09/19/2022 Pneumococcal Immunization (50+ years) (3 of 3 - PCV20 or PCV21) 03/10/2023 03/10/2018, 04/14/2013 Influenza Immunization (#1) 2024 01/23/2015, 0 04/14/2013 SARS-COV-2 Immunization ( season) 2024 03/27/2021, 08/01/2020, [...] to complete this topic Insurance MEDICARE C [employer]ARE Care Teams Domestic Maid Relationship Specialty Start Date End Date Jerome Pardo MD [address] [place] [address] [place] [address] PCP - General Family Medicine 02/18/15 Krish Donaldson DPM [address] [place] [address] [place] [address] Podiatry 01/07/16
== END 2025-02-22 16:14 | disposition home or self-care (01) ==
PROVIDERS: Emergency Provider Emergency Medicine; PCP Family Medicine
DX: M25.521 Pain in right elbow (principal); I10 Essential (primary) hypertension; I73.9 Peripheral vascular disease, unspecified; E78.5 Hyperlipidemia, unspecified; E11.9 Type 2 diabetes mellitus without complications; Z87.891 Personal history of nicotine dependence; M19.021 Primary osteoarthritis, right elbow; Z79.899 Other long term (current) drug therapy; Z79.4 Long term (current) use of insulin; Z79.84 Long term (current) use of oral hypoglycemic drugs; Z79.02 Long term (current) use of antithrombotics/antiplatelets
CPT/HCPCS: 36415; 73080; 73201; 80053; 85025; 85652; 86140; 96374; 99284; A4565; J1885; Q9967